=== PATIENT | male | born 1955 | race Caucasian/White ===

== ENCOUNTER 2023-12-18 13:27 | Inpatient (IN) | payer BC, MEDICARE, SELFPAY ==
[2023-12-18] VITALS (21 sets, daily range): BP systolic 141–178; BP diastolic 71–118; PULSE 88–93; BMI 20.8
--- NOTE | 2023-12-18 09:40 | ED.GENMED ---
History of Present Illness
General
Chief Complaint: Abnormal Lab Value
Source: patient
Exam Limitations: none
Time Seen by Provider: 12/18/23 09:39
Nursing documentation reviewed up to this point in time: agreed with
History of Present Illness
History of Present Illness:
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
ulcer (non bleeding) and gastritis via EGD. Had unremarkable colonoscopy.
Today presents stating for past 2 days has been feeling weak, noted soft dark stools, general body aches especially his knees where he has to sit down after walking short distances. Has been taking Ibuprofen 600 mg BID for past 2 weeks.
Denies feeling lightheaded or dizzy
Had out pt blood work 2 days ago, PCP called him today to come here for abnormal blood work.
Past History
Past History
ED Past Medical History: IDDM, Seizures and Other
ED Past Surgical History: None
Social History
Tobacco: Non-smoker
Alcohol: Occasional
Drug: None
Personal:
Living: with family
Employment: Employed
Review of Systems
Review of Systems
Allergies reviewed?: Yes
All Other Systems: ROS reviewed and negative except as documented in HPI and ROS
Constitutional: Reports fatigue; Denies fever or chills
Respiratory: Denies cough or trouble breathing
Cardiac: Denies chest pain
ABD/GI: Reports black stools and anorexia; Denies abdominal pain, nausea, vomiting or diarrhea
: Denies dysuria or difficulty voiding
Musculoskeletal: Reports other (body aches, knees ache past 2 days)
Skin: Reports no symptoms
Neurological: Reports no symptoms
Phy Exam
Physical Exam
Physical Exam:
GENERAL: No acute distress. A&Ox3.
CONSTITUTIONAL: Afebrile.
EYES: PERRL, conjunctivae pale
ENMT: pale, moist mucus membranes, Pharynx nl
RESPIRATORY: Regular respirations, nonlabored, lungs clear. Mild tachypnea
CARDIOVASCULAR: Regular rate and rhythm, no murmurs, no rubs, mild tachycardia
GI: Soft, nontender, normal BS
Rectal: small amount brown stool heme positive
MUSCULOSKELETAL: Moves with ease. Well perfused.
SKIN: Warm, dry, pale
PSYCH: Normal mood and affect. Well kept, interactive and appropriate
NEUROLOGIC: Awake, alert and oriented. No focal neurological deficits
Course
Orders/Labs/Results
Orders:
Orders
12/18/23 09:36
Type+Screen Urgent
Complete Blood Count/With Diff Urgent
Comprehensive Metabolic Panel Urgent
Ferritin Urgent
Comment: ADD
Folate Urgent
Comment: ADD
Iron Urgent
Comment: ADD
PTT Urgent
Prothrombin Time Urgent
Total Iron Binding Urgent
Comment: ADD
Vitamin B12 Urgent
Comment: ADD
12/18/23 10:18
IV Insert/Care/Rem.- Treatment PRN
Pantoprazole 80 mg/100 ml Nss [Protonix] 80 mg in 100 ml IV NOW
Pantoprazole [Protonix IV] 40 mg IV NOW STA
12/18/23 10:19
0.9% Sodium Chloride 1000 ml [Nss] 1,000 ml IV BOLUS
12/18/23 11:03
* Blood Bank Products Urgent
Blood Bank Products: *Packed RBC Leuko(PRBC's)
Quantity: 2
Transfuse Today: Yes
Reason: Anemia
IV Insert/Care/Rem.- Treatment PRN
12/18/23 11:18
NEPHROLOGY CONSULT Urgent
Consulting Provider: Claudio Lawson
Was physician already notified: Yes
Reason for consult: GI bleed, SHAYY
12/18/23 12:00
Flush (0.9% Sodium Chloride) [Flush (Nss)] See Dose Instructions IV PER PROTOCOL
Sterile Water For Inj [Sterile Water For Injection 1000 ml] 1,000 ml Sodium Bicarbonate 150 meq IV Wide Open mls/hr
12/18/23 12:16
GASTROINTESTINAL CONSULT Routine
Consulting Provider: Gilbert Pompa
Was physician already notified: Yes
12/18/23 12:20
Admit/Transfer Patient As Directed
Co-Sign Provider:
Level of Care: Inpatient admission
Assign to:: IMU- Intermediate Care
Physician / Group: [facility]
Diagnosis: GI Bleed, SHAYY, Acidosis
Reason for Hospitalization: IVFs, Blood transfusion
Expected length of stay greater than two midnights?: Yes
ELOS- Estimated Length of Stay in days: 3
I certify the patient meets the requirements for IP care: Yes
PRN Pain Medication Management As Directed
May give lesser potent ordered pain med per pt: Yes
preference::
Protocol:: Medication orders for pain may be administered in a
manner that supports deferring to patient preference
when the pt is:
- Requesting an ordered lesser potent pain medication.
Least to most potent pain medications are defined
as: acetaminophen < NSAID < tramadol < opioids
(morphine, oxycodone, hydromorphone).
- Requesting a lesser dose of the same medication IF
ORDERED.
- Requesting a less intrusive route of administration
if both routes are prescribed by the provider (PO <
IV).
12/18/23 12:21
Code Status As Directed
Resuscitation Status: Full Code
12/18/23 12:44
Renal Only US [US Renal Only W/O Bladder] Routine
Comment:
Reason For Exam: SHAYY
12/18/23 12:45
Sterile Water For Inj [Sterile Water For Injection 1000 ml] 1,000 ml Sodium Bicarbonate 150 meq IV 100 mls/hr
12/18/23 12:48
Add On- LAB Urgent
Tests Added?: iron, ferritin, tibc, vit b12, folate
Lactic Acid Stat
12/18/23 13:04
Urinalysis Routine
Date Specimen was Collected: 12/18/23
Time Specimen was Collected: 13:03
Urine Creatinine Routine
Date Specimen was Collected: 12/18/23
Time Specimen was Collected: 13:03
Urine Microscopic Routine
Date Specimen was Collected: 12/18/23
Time Specimen was Collected: 13:03
Urine Sodium Routine
Date Specimen was Collected: 12/18/23
Time Specimen was Collected: 13:03
12/18/23 16:00
Sodium Bicarbonate 650 mg PO TID
12/18/23 17:30
BMP [Basic Metabolic Panel] Routine
H&H Q8H
12/19/23 01:30
H&H Q8H
12/19/23 09:30
H&H Q8H
Abnormal Lab Results
12/18/23 12/18/23 12/18/23
09:36 12:48 13:04
RBC 1.68 L 10^6/uL
(4.70-6.10)
Hgb 5.0 L* g/dL
(13.0-18.0)
Hct 16.2 L* %
(39.0-52.0)
MCV 96.4 H fL
(80.0-94.0)
MCHC 30.9 L g/dL
(33.0-37.0)
RDW 15.1 H %
(11.5-14.5)
Plt Count 564 H 10^3/uL
(130-400)
Abs Immat Gran (auto) 0.1 H 10^3/uL
(0-0.05)
Absolute Neuts (auto) 7.5 H 10^3/uL
(1.4-6.5)
Absolute Lymphs (auto) 0.7 L 10^3/uL
(1.2-3.4)
Immature Gran % 0.7 H %
(0-0.5)
Neutrophils % 83.5 H %
(42.2-75.2)
Lymphocytes % 7.3 L %
(20.5-51.1)
PT 20.6 H Sec
(11.4-14.6)
APTT 53.9 H Sec
(23.4-35.0)
Potassium 5.3 H mmol/L
(3.5-5.1)
Chloride 110 H mmol/L
(98-107)
Carbon Dioxide < 5 L* mmol/L
(22-30)
BUN 54 H mg/dl
(9-20)
Creatinine 5.7 H* mg/dL
(0.7-1.3)
Glucose 204 H mg/dl
(70-99)
Lactic Acid 0.6 L mmol/L
(0.7-2.0)
Iron 28 L ug/dl
(49-181)
% Saturation 8 L %
(20-50)
AST 14 L U/L
(17-59)
Urine Occult Blood 1+ A
(Negative)
Urine Albumin 2+ A
(Neg - Trace)
Crossmatch IS Only See Detail
12/18/23 09:36
12/18/23 09:36
Vital Signs
Initial and Last Documented VS:
Initial Vital Signs
Temp Pulse Resp BP Pulse Ox
98.7 F 111 20 141/71 99
12/18/23 09:09 12/18/23 09:09 12/18/23 09:09 12/18/23 09:09 12/18/23 09:09
Last Documented Vital Signs
Temp Pulse Resp BP Pulse Ox
98.2 F 87 12 167/118 99
12/18/23 14:24 12/18/23 15:15 12/18/23 15:15 12/18/23 15:00 12/18/23 15:15
MDM/Problems Addressed
Differential Diagnosis Includes:
GI bleed, Iron deficiency anemia, malignancy
MDM/Problems Addressed:
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
ulcer (non bleeding) and gastritis via EGD. Had unremarkable colonoscopy.
Today presents stating for past 2 days has been feeling weak, noted soft dark stools, general body aches especially his knees where he has to sit down after walking short distances. Has been taking Ibuprofen 600 mg BID for past 2 weeks.
Denies feeling lightheaded or dizzy
Had out pt blood work 2 days ago, PCP called him today to come here for abnormal blood work.
11:00 AM:
CBC: Hemoglobin 5.0 and this is consistent with acute blood loss
Small amount of stool in rectum was hematest positive
CMP: BUN/creat 54/5.7, bicarb less than 5
Anion Gap: 21
Diagnosis: GI bleed, metabolic acidosis, acute kidney injury
*Critical Care Note
Total Time (30-74mins, 75-104mins- exclusive of procedures): Not Applicable
ED Attending Note
-
Portions of this chart may have been created with voice recognition software.� Occasional wrong word or��sound alike� substitutions may have occurred due to the inherent limitations of voice recognition software.
Discharge Plan
Departure
Patient Disposition: Admit
Date of Disposition: 12/18/23
Time of Disposition: :19
Presentation/result/management discussed w/ accepting MD/DO: Hospitalist
Condition: Serious
Discharge Problem:
Acute GI bleeding, Metabolic acidosis, Acute kidney injury
Interventions
Interventions:
*Risk Screen - Suicide Last Done: 12/18/23 09:25
*General Assessment Last Done: 12/18/23 09:25
*Neglect/Abuse Screening Last Done: 12/18/23 09:25
*ED COVID-19 Vaccine History Last Done: 12/18/23 15:37
[2023-12-18 10:15] LABS: INR 1.75; PT 20.6 Sec (11.4-14.6)
[2023-12-18 10:16] LABS: APTT 53.9 Sec (23.4-35.0)
[2023-12-18 10:27] LABS: % Basophils 0.8 % (0-2); % Eosinophils 1.1 % (0-6); % Immature Granulocytes 0.7 % (0-0.5); % Lymphocytes 7.3 % (20.5-51.1); % Monocytes 6.6 % (1.7-9.3); % Neutrophils 83.5 % (42.2-75.2); Absolute Basophils 0.1 10^3/uL (0-0.2); Absolute Eosinophils 0.1 10^3/uL (0-0.7); Absolute Immature Granulocytes 0.1 10^3/uL (0-0.05); Absolute Lymphocytes 0.7 10^3/uL (1.2-3.4); Absolute Monocytes 0.6 10^3/uL (0.1-0.6); Absolute Neutrophils 7.5 10^3/uL (1.4-6.5); Hematocrit 16.2 % (39.0-52.0); Mean Corp Hgb Conc. 30.9 g/dL (33.0-37.0); Mean Corpuscular Hgb 29.8 pg (27.0-31.0); Mean Corpuscular Volume 96.4 fL (80.0-94.0); Mean Platelet Volume 8.7 fL (7.4-10.4); Nucleated Red Blood Cells % 0.4 % (-); Platelet Count 564 10^3/uL (130-400); Red Blood Cell Count 1.68 10^6/uL (4.70-6.10); Red Cell Dist. Width 15.1 % (11.5-14.5); White Blood Cell Count 8.9 10^3/uL (4.8-10.8)
[2023-12-18 10:29] LABS: ALT (SGPT) 16 U/L (0-50); AST (SGOT) 14 U/L (17-59); Albumin 3.5 g/dl (3.5-5.0); Alkaline Phosphatase 80 U/L (38-126); Blood Urea Nitrogen 54 mg/dl (9-20); Calcium 8.8 mg/dl (8.4-10.2); Carbon Dioxide < 5 mmol/L (22-30); Chloride 110 mmol/L (98-107); Estimated Creatinine Clearance 11 ml/min; Glucose 204 mg/dl (70-99); Potassium 5.3 mmol/L (3.5-5.1); Sodium 136 mmol/L (135-145); Total Bilirubin 0.2 mg/dl (0.2-1.3); Total Protein 6.3 g/dl (6.3-8.2); eGFR 10.28
[2023-12-18] MEDS: NSS 1000 IV (10:36)
[2023-12-18] MEDS: PROTONIX IV 40 MG IV ×2 (10:36→19:50)
[2023-12-18] MEDS: PROTONIX 100 IV (10:36)
--- NOTE | 2023-12-18 12:20 | HPS.HSE ---
Family Physician
-
Family Physician: Lawrence Anderson
Chief Complaint
-
Abnormal Labs
History of Present Illness
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 During
his hospitalization in 2020 he was found to have a duodenal ulcer and gastritis on EGD, as well as vitamin B12 deficiency. He says that he has not followed up with any medical provider since then, until he saw his PCP 2-3 days ago because he woke up
and his body was diffusely achy. He says his achy pain is everywhere but mostly in his legs and particularly his knees. He also notes that around the same time he had an 'upset stomach,' for which he took some Pepto-Bismol. Later on he had a loose
bowel movement that was dark colored, but he attributed it to the Pepto he took. He takes ibuprofen regularly, roughly 2 capsules a day. He reports drinking alcohol (mixed drinks with vodka) a 'few times' a week and '2 drinks a day max.' He denies
headache, dizziness, dysphagia, cough, SOB, chest pain, palpitations, abdominal pain, nausea, vomiting, or constipation.
Medical History
Past Medical History
Past Medical History: Reports Other
Additional Past Medical History:
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
Essential Hypertension
Diabetes Mellitus, Type II
CKD Stage III
Peptic Ulcer Disease
Past Surgical History: Reports None
Social History
Tobacco: Non-smoker
Alcohol: Other (Patient not forth coming with alcohol consumption. He has prior history of binge drinking. He reports 2 'mixed vodka' drinks most days but unable to quantify how much vodka is in each drink)
Family History
Family History: Not pertinent
Allergies / Home Medications
Allergies reflects when Allergies were last updated in [facility].
Home Medications with original date entered in [facility]
Allergy/Medication List:
Allergies
Allergy/AdvReac Type Severity Reaction Status Date / Time
No Known Allergies Allergy Verified 12/18/23 09:11
Home Medications
metformin 1,000 mg tablet 1,000 mg PO BID Diabetes 10/27/19
nifedipine 30 mg tablet,extended release 30 mg PO DAILY Blood pressure 10/27/19
ibuprofen 200 mg tablet (Advil) 400 mg PO BIDPRN PRN mild pain 12/18/23
levetiracetam 500 mg tablet 1,500 mg PO BID seizure 12/18/23
Review of Systems
-
A 12 point ROS was completed and negative except as noted: Yes
Constitutional: Denies Fever or Chills
Respiratory: Denies Cough or Trouble Breathing
Cardiac: Denies Chest Pain or Palpitations
Abdomen/GI: Reports See HPI
Neurological: Denies Dizzy
Physical Exam
Vital Signs
Vital Signs
Temp Pulse Resp BP Pulse Ox
98.0 F 86 13 165/81 100
12/18/23 11:59 12/18/23 11:59 12/18/23 11:59 12/18/23 11:59 12/18/23 11:41
Physical Exam
General: Comfortable and Conversant
HEENT: Anicteric and Moist mucous membranes
Respiratory: Clear and Non Labored Respirations
Cardiac: S1/S2 and Regular Rhythm
GI: Soft and Non Tender
Rectal: Hem Positive (Per ED Provider)
Musculoskeletal: No Clubbing and No Edema
Skin: Warm and Dry
Neuro: Awake, Alert, Oriented and Nonfocal/grossly intact
Psych: Calm
Laboratory Results
-
12/18/23 09:36
12/18/23 09:36
Laboratory Results
PT 20.6 Sec (11.4-14.6) H 12/18/23 09:36
INR 1.75 12/18/23 09:36
APTT 53.9 Sec (23.4-35.0) H 12/18/23 09:36
Total Bilirubin 0.2 mg/dl (0.2-1.3) 12/18/23 09:36
AST 14 U/L (17-59) L 12/18/23 09:36
ALT 16 U/L (0-50) 12/18/23 09:36
Alkaline Phosphatase 80 U/L (38-126) 12/18/23 09:36
Data Reviewed
-
Lab Data: Labs Reviewed by me
Old Records: Reviewed
Impression/Plan
-
Acute Kidney Injury
Severe Anion Gap Acidosis
Hyperkalemia
-Likely related to metformin and NSAID use
-Check lactic acid level
-Continue IVFs with Bicarb
-Start oral bicarb
-Consult Nephrology
GI Bleed, prior history of Gastritis/PUD
-Consult GI
-Continue Protonix
-Continue
Acute Blood Loss Anemia
-Transfuse 2 units PRBCs
-Monitor Hgb closely
Diabetes Mellitus, Type II
-Hold metformin
-Monitor sugars and continue coverage insulin
Essential Hypertension
-Hold nifedipine
Alcohol Use Disorder
-Continue alcohol withdrawal protocol
DVT proph: SCDs
Code Status: Full Code
--- NOTE | 2023-12-18 12:38 | W.CON.NEPH ---
Consultation
-
Date/Time Consultation Requested: 12/18/23 11a
Date/Time Consultation Performed: 12/18/23 12p
Requesting Provider: Dr. Alfred
Performing Provider: Dr. Lawson
Reason for Consultation: SHAYY
Medical History
-
Chief Complaint: SHAYY
History of Present Illness:
This is a 68-year-old gentleman who is hypertension controlled with a monotherapy regimen, seizure disorder due to a remote brain infection controlled with Keppra therapy, diabetes mellitus type 2 controlled with metformin therapy. He says that he
has been compliant with his medications. About 3 weeks ago he had developed headaches as well as right knee pain. For this he had started taking Motrin 600 mg twice daily. About a week ago he began noticing darker stools though no overt blood.
He then began feeling weaker and has seen his primary who ordered blood work. This had come back abnormal and he was sent to the emergency room. Here he was noted to have a hemoglobin of 5.0, a creatinine of 5.7, significant metabolic acidosis.
We are asked to assist in management of his renal failure. He denies any issues with urine output.
Past Medical History
Hypertension, brain infection, seizure disorder, diabetes mellitus type 2, hyperlipidemia, knee pain
Social History
Tobacco: Non-Smoker
Alcohol: Daily
Family History
Family History: Not Pertinent
Allergies / Home Medications
Allergy/AdvReac Type Severity Reaction Status Date / Time
No Known Allergies Allergy Verified 12/18/23 09:11
�Medication �Instructions �Recorded �Confirmed �Type
metformin 1,000 mg tablet 1,000 mg PO BID Diabetes 10/27/19 12/18/23 History
nifedipine 30 mg tablet,extended 30 mg PO DAILY Blood pressure 10/27/19 12/18/23 History
release
ibuprofen 200 mg tablet (Advil) 400 mg PO BIDPRN PRN mild pain 12/18/23 12/18/23 History
levetiracetam 500 mg tablet 1,500 mg PO BID seizure 12/18/23 12/18/23 History
Review of Systems
-
Headache and knee pain.
All other systems: Negative unless noted
Physical Exam
Vital Signs
Vital Signs
Temp Pulse Resp BP Pulse Ox
98.0 F 86 13 165/81 100
12/18/23 11:59 12/18/23 11:59 12/18/23 11:59 12/18/23 11:59 12/18/23 11:41
Lab Results
WBC 8.9 10^3/uL (4.8-10.8) 12/18/23 09:36
RBC 1.68 10^6/uL (4.70-6.10) L 12/18/23 09:36
Hgb 5.0 g/dL (13.0-18.0) L* 12/18/23 09:36
Hct 16.2 % (39.0-52.0) L* 12/18/23 09:36
Plt Count 564 10^3/uL (130-400) H 12/18/23 09:36
eGFR 10.28 12/18/23 09:36
Albumin 3.5 g/dl (3.5-5.0) 12/18/23 09:36
Laboratory Tests
10/29/19
06:14
Creatinine 1.5 H
Physical Exam
Patient is awake alert oriented and in no distress. Mood and affect were pleasant, insight and judgment were good. Pupils are equal round and reactive to light, extraocular movements are intact, sclera were anicteric. Hearing was normal, ears and
nose are intact. Oropharynx was clear. Neck was supple with trachea midline and no thyromegaly. Heart was regular rate and rhythm without rubs. Lower extremities without edema. Lungs were clear to auscultation bilaterally and with normal
excursion. Abdomen was soft, nontender, with normal active bowel sounds, and no hepatosplenomegaly. Skin was without rash and with normal turgor.
Data Reviewed
-
Ultrasound: Report Reviewed by me (Renal ultrasound on October 28, 2019 shows right kidney 9.8 cm, left kidney 11.2 cm)
Labs: Labs Reviewed by me
Old Records: Reviewed
Assessment/Plan
-
Assessment
SHAYY
Metabolic acidosis
Hyperkalemia
Hypertension
Acute anemia
Likely upper GI bleed
Diabetes mellitus type 2
Seizure disorder
Plan
IV fluids with bicarbonate therapy
Oral bicarbonate therapy
GI evaluation
Discontinue NSAIDs
Holding metformin
Check lactic acid
Check urine studies
Check renal ultrasound
It would appear that the entire chain of events stemmed from initiation of ibuprofen 600 mg twice daily 3 weeks ago.
[2023-12-18 13:14] LABS: Lactic Acid 0.6 mmol/L (0.7-2.0)
--- NOTE | 2023-12-18 13:19 | W.PN.UPDATE ---
Update Note
Progress Note Update
This is an addendum to the H&P written by Karo Reich on 12/18/2023.� Patient seen and examined independently with PA.
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
abnormal lab work 2 days ago.
Labs show hemoglobin of� 5 from 8.2 previously.� Severe anion gap metabolic acidosis and SHAYY on CKD on labs.� Mild hyperkalemia.
Normocytic anemia likely secondary to recurrent bleeding from duodenal ulcer.� N.p.o., 2 units of blood, iron studies, B12 and folate.� Check lactic acid.� Metabolic acidosis secondary to daily NSAID/metformin.� Hold ibuprofen/ metformin.� Monitor
I's and O's, bicarb drip, nephrology consulted.� There was some concern for paraproteinemia during the last admission 4 years ago and outpatient follow-up with hematology for workup was recommended but patient never sought follow up.�
Alcohol withdrawal protocol.�
[2023-12-18 13:26] LABS: Iron 28 ug/dl (49-181)
[2023-12-18 13:36] LABS: Percent Saturation 8 % (20-50); Total Iron Binding Capacity 324 ug/dl (261-462)
[2023-12-18 13:37] LABS: Urine Albumin 2+ (Neg - Trace); Urine Bilirubin Negative (Negative); Urine Character Clear (Clear); Urine Color Yellow; Urine Glucose Negative (Negative); Urine Ketone Negative (Negative); Urine Leukocyte Negative (Negative); Urine Nitrite Negative (Negative); Urine Occult Blood 1+ (Negative); Urine Specific Gravity 1.015 (<1.030); Urine Urobilinogen Negative (Neg - 1+)
[2023-12-18] MEDS: SODIUM BICARBONATE 1150 MEQ IV (13:41)
[2023-12-18 13:59] LABS: Urine Granular Cast 0-2 /LPF (0); Urine Red Blood Cell 0-2 /HPF (0-2); Urine White Cell 0-2 /HPF (0-5)
--- NOTE | 2023-12-18 14:13 | CON.GI ---
Addendum entered and electronically signed by Mikaela Martínez DO 12/18/23 15:43:
The patient was seen and examined by me independently in collaboration with the nurse practitioner.
Past medical history/social history/medications/allergies/family history reviewed.
Lab data and imaging data reviewed.
Nicholas is a 68-year-old male with past medical history of CKD, diabetes, seizure disorder and brain infection, history of peptic ulcer disease who presents with weakness and dark stools found to be iron deficient with a hemoglobin of 5. He reports
having severe joint pain and taking 6 Advil per day daily for the last few months. Additional abnormalities on admitting labs demonstrated metabolic acidosis with SHAYY and hyperkalemia.
Suspect metabolic acidosis and acute on chronic injury in addition to GI bleeding is 2/2 heavy NSAID use. Difficult to interpret BUN given severe SHAYY, however, high suspicion for upper GI source, specifically, peptic/duodenal ulcers. He is
hemodynamically stable.
Recommendations:
-2 large bore peripheral gauge IVs
-transfuse w/ 2 units PRBC, CBC q8hrs
-IVF
-PPI gtt
-NPO past midnight-- tentative plans for EGD tomorrow, pending improvement in acidosis
-avoid all NSAID use
Original Note:
Consultation
-
Date/Time Consultation Requested: 12/18/23 1215
Date/Time Consultation Performed: 12/18/23 1440
Requesting Provider: Karo Reich PA-C
Performing Provider: OPAL Cordova, Sherron Martínez DO
Reason for Consultation: anemia
Medical History
Chief Complaint / HPI
Chief Complaint: fatigue
History of Present Illness:
Pt is a 68yo with hx NIDDM, CKD, brain infection/seizure disorder, PUD with onset of weakness and dark stools a few days ago. He was noted with abnormal labs and on admission hbg 5 with platelets 564 with iron deficient indices. Prior labs in 2019
with B12 deficiency. Pt also noted K 5.3 with CO2 <5, BUN 54, creat 5.7 and INR of 1.75. Last colonoscopy [address] Valdez with fair prep with limited view small polyps, diverticulosis, hemorrhoids. EGD 2019 Dr. Valdez with gastritis non bleeding
duodenal ulcers with no stigmata of bleeding.
In reviewing with patient he has not seen MD since 2019. He admits to 6 Advil per day taking over last month for joint pains. He denies dysphagia, GERD, abdominal pain, constipation or red stools. He admits to occasional diarrhea.
Past Medical History
Past Medical History: HTN, NIDDM, Renal Failure (CKD), Seizures (with hx brain infection) and Other (peptic ulcer disease, B12 deficiency )
Social History
Tobacco: Non-Smoker
Alcohol: Occasional (2-3 drinks 2-3 times per week)
Drug: None
Living: Alone
Employment: Employed
Family History
Family History: Other (no family hx colon Ca or polyps)
Allergies / Home Medications
Allergy/AdvReac Type Severity Reaction Status Date / Time
No Known Allergies Allergy Verified 12/18/23 09:11
�Medication �Instructions �Recorded
metformin 1,000 mg tablet 1,000 mg PO BID Diabetes 10/27/19
nifedipine 30 mg tablet,extended 30 mg PO DAILY Blood pressure 10/27/19
release
ibuprofen 200 mg tablet (Advil) 400 mg PO BIDPRN PRN mild pain 12/18/23
levetiracetam 500 mg tablet 1,500 mg PO BID seizure 12/18/23
Review of Systems
-
History Source: Patient
Constitutional: Reports Fatigue
EENT: Reports No Symptoms
Respiratory: Reports No Symptoms
Abdomen/GI: Reports Abdominal Pain, Diarrhea and Other (recent dark stool)
: Reports No Symptoms
Musculoskeletal: Reports Joint Pain
Skin: Reports No Symptoms
Neurological: Reports Weakness
Endocrine: Reports No Symptoms
Hematologic/Lymphatic: Reports No Symptoms
Vital Signs
Temp Pulse Resp BP Pulse Ox
98.2 F 92 15 170/82 98
12/18/23 14:06 12/18/23 14:06 12/18/23 14:06 12/18/23 14:06 12/18/23 14:06
Physical Exam
Exam
General: Well Developed, Well Nourished and No Apparent Distress
HEENT: Normocephalic and Anicteric
Respiratory: Clear
Cardiac: Regular Rhythm
GI: Soft, Non Tender and Non Distended
Rectal: Other (brown heme + per ER)
Musculoskeletal: No Clubbing and No Cyanosis
Skin: Warm and Dry
Neuro: Awake, Alert and AO x 3
Psych: Calm
Results
WBC 8.9 10^3/uL (4.8-10.8) 12/18/23 09:36
Hgb 5.0 g/dL (13.0-18.0) L* 12/18/23 09:36
Hct 16.2 % (39.0-52.0) L* 12/18/23 09:36
MCV 96.4 fL (80.0-94.0) H 12/18/23 09:36
Plt Count 564 10^3/uL (130-400) H 12/18/23 09:36
Absolute Neuts (auto) 7.5 10^3/uL (1.4-6.5) H 12/18/23 09:36
PT 20.6 Sec (11.4-14.6) H 12/18/23 09:36
INR 1.75 12/18/23 09:36
APTT 53.9 Sec (23.4-35.0) H 12/18/23 09:36
Sodium 136 mmol/L (135-145) 12/18/23 09:36
Potassium 5.3 mmol/L (3.5-5.1) H 12/18/23 09:36
Chloride 110 mmol/L (98-107) H 12/18/23 09:36
Carbon Dioxide < 5 mmol/L (22-30) L* 12/18/23 09:36
BUN 54 mg/dl (9-20) H 12/18/23 09:36
Creatinine 5.7 mg/dL (0.7-1.3) H* 12/18/23 09:36
Calcium 8.8 mg/dl (8.4-10.2) 12/18/23 09:36
Total Bilirubin 0.2 mg/dl (0.2-1.3) 12/18/23 09:36
AST 14 U/L (17-59) L 12/18/23 09:36
ALT 16 U/L (0-50) 12/18/23 09:36
Alkaline Phosphatase 80 U/L (38-126) 12/18/23 09:36
Diagnostic Image Results:
12/18/23 US Renal Only W/O Bladder
Mildly increased renal cortical echogenicity without significant cortical volume loss suggesting mild medical renal disease
8 mm cyst in the upper pole the right kidney
Prior GI Procedures:
EGD [address] Dr. Valdez with gastritis non bleeding duodenal ulcers with no stigmata of bleeding
colonoscopy [address] Valdez with fair prep with limited view small polyps, diverticulosis, hemorrhoids.
Assessment / Plan
-
Pt is a 68yo with hx NIDDM, CKD, brain infection/seizure disorder, PUD with onset of weakness and dark stools a few days ago. He was noted with abnormal labs and on admission hbg 5 with platelets 564 with iron deficient indices. Prior labs in 2020
with B12 deficiency. Pt also noted K 5.3 with CO2 <5, BUN 54, creat 5.7 and INR of 1.75. Last colonoscopy [address] Valdez with fair prep with limited view small polyps, diverticulosis, hemorrhoids. EGD [address] Valdez with gastritis non bleeding
duodenal ulcers with no stigmata of bleeding. He admits to 6 Advil per day taking over last month for joint pains.
-iron deficiency anemia
-SHAYY on CKD
-hyperkalemia
-metabolic acidosis
-coagulopathy
-hx duodenal ulcers in 2020
-daily NSAID use
-ETOH use
-thrombocytosis
other med problems:
-NIDDM
-brain infection with hx seizures
-b12 deficiency
PLAN:
Etiology of anemia with iron deficiency related to ulcer disease with NSAID/ETOH use vs multifactoral with hx CKD, prior low B12
appreciate renal consult
consider EGD in AM if electrolytes improved - NPO for AM
trend hbg and stool record
ppi gtt
agree with transfusion
consider iron in AM
await B12 level
NSAID avoidance
trend labs
will follow
-
-
Thank you for consultation and allowing me to participate in the patient's care. Please call the information technology audit manager GI physician during the after hours with any questions or concerns.
[2023-12-18 15:57] LABS: Urine Sodium 28 mmol/L (30-90)
[2023-12-18 16:57] LABS: Ferritin 29.3 ng/ml (17.9-464.0)
[2023-12-18 17:29] LABS: Folate 7.8 ng/ml (2.76-20); Vitamin B12 433 pg/ml (239-931)
[2023-12-18] MEDS: SODIUM BICARBONATE 650 MG PO ×2 (17:36→22:02)
--- NOTE | 2023-12-18 18:21 | PTCARENOTE ---
Received patient from ED. Two IV sites in place, right and left ACs. Orientated patient to room. Call scott within reach. Continuing to monitor.
[2023-12-18] MEDS: NOVOLOG FLEXPEN-LOW RESISTANCE 1 UNITS SC (18:29)
[2023-12-18 18:37] LABS: Glucose - Point of Care 196 mg/dl (70-99)
[2023-12-18 18:42] LABS: Blood Urea Nitrogen 55 mg/dl (9-20); Calcium 8.8 mg/dl (8.4-10.2); Carbon Dioxide 7 mmol/L (22-30); Chloride 111 mmol/L (98-107); Estimated Creatinine Clearance 13 ml/min; Glucose 184 mg/dl (70-99); Potassium 4.8 mmol/L (3.5-5.1); Sodium 136 mmol/L (135-145); eGFR 12.03
[2023-12-18] MEDS: DESENEX/MITRAZOL/ZEASORB 1 APPLIC TOPICAL (19:49)
[2023-12-18] MEDS: THIAMINE INJECTION 200 MG IV (19:50)
[2023-12-18] MEDS: NSS (PRESERVATIVE FREE) 10 ML IV (19:50)
[2023-12-18] MEDS: KEPPRA 1500 MG PO (19:50)
[2023-12-18 20:20] LABS: Hematocrit 21.5 % (39.0-52.0); Hemoglobin 7.3 g/dL (13.0-18.0)
[2023-12-18 20:22] LABS: Amphetamines Negative (Negative); Barbiturates Negative (Negative); Benzodiazepines Negative (Negative); Buprenorphine Negative (Negative); Cocaine Negative (Negative); Marijuana Negative (Negative); Methadone Negative (Negative); Methamphetamines Negative (Negative); Opiates Negative (Negative); Phencyclidine Negative (Negative); Tricyclic Antidepressants Negative (Negative)
[2023-12-18 22:16] LABS: Glucose - Point of Care 210 mg/dl (70-99)
--- NOTE | 2023-12-18 22:40 | PTCARENOTE ---
PT able to make needs known. MSAS continued. Pt had no complaints at this time. Assessment care and vitals as charted.
[2023-12-19] VITALS (24 sets, daily range): BP systolic 140–184; BP diastolic 59–83; BMI 20.8
[2023-12-19 00:28] LABS: Glucose - Point of Care 187 mg/dl (70-99)
[2023-12-19] MEDS: SODIUM BICARBONATE 1150 MEQ IV ×2 (01:36→12:31)
[2023-12-19 05:21] LABS: INR 1.71; PT 20.2 Sec (11.4-14.6)
[2023-12-19 05:38] LABS: Blood Urea Nitrogen 54 mg/dl (9-20); Calcium 8.6 mg/dl (8.4-10.2); Carbon Dioxide 9 mmol/L (22-30); Chloride 109 mmol/L (98-107); Estimated Creatinine Clearance 14 ml/min; Glucose 147 mg/dl (70-99); Magnesium 1.9 mg/dl (1.6-2.3); Phosphorus 4.8 mg/dl (2.5-4.5); Potassium 4.4 mmol/L (3.5-5.1); Sodium 138 mmol/L (135-145); eGFR 12.96
[2023-12-19 05:51] LABS: Glucose - Point of Care 152 mg/dl (70-99)
[2023-12-19 06:38] LABS: Hematocrit 20.2 % (39.0-52.0); Mean Corp Hgb Conc. 34.7 g/dL (33.0-37.0); Mean Corpuscular Volume 89.4 fL (80.0-94.0); Mean Platelet Volume 8.8 fL (7.4-10.4); Platelet Count 458 10^3/uL (130-400); Red Blood Cell Count 2.26 10^6/uL (4.70-6.10); Red Cell Dist. Width 14.7 % (11.5-14.5); White Blood Cell Count 6.2 10^3/uL (4.8-10.8)
[2023-12-19] MEDS: FOLVITE 1 MG PO (07:43)
[2023-12-19] MEDS: THIAMINE INJECTION 200 MG IV ×2 (07:44→22:07)
[2023-12-19] MEDS: SODIUM BICARBONATE 650 MG PO ×3 (07:44→22:07)
[2023-12-19] MEDS: KEPPRA 1500 MG PO ×2 (07:44→22:07)
[2023-12-19] MEDS: PROTONIX IV 40 MG IV ×2 (07:46→22:07)
--- NOTE | 2023-12-19 08:07 | W.PN.HOSP.TC ---
Addendum entered and electronically signed by Misa Meyer MD 12/19/23 15:45:
I saw and evaluated the patient independently. I reviewed the resident�s note and agree with findings and plan as documented by Dr. Guajardo.
GENERAL: well developed, well nourished, male in no apparent distress
HEENT: NC/AT
HEART: regular rate and rhythm, +S1, +S2
LUNGS : clear to auscultation bilaterally
ABDOM: soft, nontender, nondistended, + bowel sounds
EXT: no cyanosis, clubbing, or edema
NEUROLOGIC: grossly intact
anemia--presumed chronic due to subacute GI bleeding from NSAID use over the last 2 weeks (PUD, DUD, gastritis, etc)--HGB 5 on admission--Status post 2 units packed red blood cells--HGB 7.2--will transfuse 2 more--likely iron deficient--labs
confirm--apprec GI, likely EGD once acidosis stabilizes
SHAYY with metabolic acidosis--creat 5 on admission--combination of prerenal (blood loss), renal (NSAID and metformin)--hold meds--avoid all NSAIDs moving forward--cont IVF with bicarb
Diabetes mellitus, type II--agree with holding metformin--HGB A1C 6.1
Essential hypertension--Currently holding nifedipine
Alcohol use disorder--Continue MSAS protocol
DVT prophylaxis: SCDs
CODE STATUS: Full code
Original Note:
Today's Communication/Plan
-
Continue IV fluids with bicarb
Make patient n.p.o. at midnight
Monitor hemoglobin transfuse if below 7
Assessment / Plan
Assessment / Plan
Assessment: 68-year-old male past medical history of hypertension, and bleeding duodenal ulcer in 2019 presents to the ED with a hemoglobin of 5, checked at his primary care office
Plan:
#Chronic anemia
Hemoglobin on admission 5.0
Status post 2 units packed red blood cells
Suspected secondary to GI losses
GI consult
EGD pending
Iron studies and reticulocyte count added onto labs at admission, will follow-up in a.m.
Transfuse if below 7.0
Patient agreeable to transfusion, type and screen ordered and consent completed
#SHAYY
Patient's creatinine 5.0 on admission
Likely secondary to metformin and NSAID use
Creatinine 4.7 this morning
Continue IV fluids per nephro
Follow with daily BMP
#Metabolic acidosis
CO2 admission 7
Today CO2 9
Nephrology consult
Continue IV fluids with bicarb per nephro
#Diabetes mellitus, type II
A1c 6.1
Currently holding metformin due to SHAYY
Cover with sliding scale
Monitor sugars
#Essential hypertension
Currently holding nifedipine
#Alcohol use disorder
Continue MSAS protocol
DVT prophylaxis: SCDs
Diet: Clear liquid
CODE STATUS: Full code
Anticipated Discharge: 24 - 48 hours
Subjective/Interval History
-
Date of Service: December 19, 2023
Patient was n.p.o. at midnight, GI decided that they would not scope him due to his acidosis and creatinine
Will reevaluate tomorrow, will make patient n.p.o. overnight
Objective Data
-
Labs:
Laboratory Results
12/18/23 12/19/23 12/19/23
20:06 04:44 04:44
WBC Cancelled
Hgb 7.3 L D Cancelled Cancelled
Hct 21.5 L Cancelled
Plt Count
PT
INR
Sodium
Potassium
Chloride
Carbon Dioxide
BUN
Creatinine
Glucose
Calcium
12/19/23 12/19/23 12/19/23
04:44 05:39 12:00
WBC 6.2
Hgb 7.0 L Pending
Hct Cancelled 20.2 L* Pending
Plt Count Cancelled 458 H
PT 20.2 H
INR 1.71
Sodium 138
Potassium 4.4
Chloride 109 H
Carbon Dioxide 9 L*
BUN 54 H
Creatinine 4.7 H*
Glucose 147 H
Calcium 8.6
Vital Signs:
Vital Signs
Temp Pulse Resp BP Pulse Ox
98.1 F 66 16 163/81 100
12/19/23 05:23 12/19/23 04:30 12/19/23 04:30 12/19/23 04:30 12/19/23 04:30
I&O
12/18/23 12/19/23 12/20/23
06:59 06:59 06:59
Intake Total 1880 / 1880
Output Total 390 / 390
Balance 1490 / 1490
Review of Systems
-
History Source: Patient
Constitutional: Reports No Symptoms
Respiratory: Reports No Symptoms
Cardiac: Reports No Symptoms
Abdomen/GI: Reports No Symptoms
Physical Exam
-
General: Well Developed, Well Nourished, No Apparent Distress, Comfortable and Conversant
Respiratory: Clear to Auscultation
Cardiac: Regular Rhythm and S1/S2
GI: Soft, Nontender, Nondistended and Normal Bowel Sounds
Skin: Warm and Dry
Neuro: Awake, Alert, Oriented and AO x 3
Psych: Calm and Intact Judgement/Insight
Data Reviewed
-
Labs: Labs Reviewed by me and Discussed with Physician
[2023-12-19] MEDS: NSS (PRESERVATIVE FREE) 10 ML IV ×2 (08:32→22:07)
[2023-12-19] MEDS: DESENEX/MITRAZOL/ZEASORB 1 APPLIC TOPICAL ×2 (08:33→22:06)
[2023-12-19] MEDS: NOVOLOG FLEXPEN-LOW RESISTANCE SC (08:36)
[2023-12-19 08:47] LABS: Glucose - Point of Care 146 mg/dl (70-99)
[2023-12-19 09:19] LABS: Glycohemoglobin (HgbA1c) 6.1 % (4.0-5.6)
--- NOTE | 2023-12-19 10:29 | W.PN.GI.CBS2 ---
Addendum entered and electronically signed by Mikaela Martínez DO 12/19/23 12:35:
The patient was seen and examined by me independently in collaboration with the nurse practitioner.
Past medical history/social history/medications/allergies/family history reviewed.
Lab data and imaging data reviewed.
Patient seen in follow-up, no episodes of bleeding overnight. Hemoglobin improved, Hgb 5 --> 7.3 --> 7. Cr. improving but still remains severely acidotic.
Suspect metabolic acidosis and acute on chronic injury in addition to GI bleeding is 2/2 heavy NSAID use. He remains hemodynamically stable, without signs of active GI bleeding since admission.
Recommendations:
-2 large bore peripheral gauge IVs
-CBC q12 hrs, transfuse for Hgb <7.0
-IVF
-PPI gtt
-NPO past midnight-- tentative plans for EGD tomorrow, pending improvement in acidosis
-avoid all NSAID use
Original Note:
Today's Communication / Plan
-
Etiology of anemia with iron deficiency related to ulcer disease with NSAID/ETOH use vs multifactorial with hx CKD, prior low B12
some improved labs but remains with acidosis and SHAYY
no signs of aggressive GI bleeding-- hbg 5-->7.3--> 7
hold EGD today consider in AM if acidosis improves
reviewed with renal no restriction ok for clear diet then NPO in Am
PPI IV BID
trend hbg and stool record
total 2 units PRBC's transfused
add IV iron
consider iron in AM
NSAID avoidance
trend labs
Assessment / Plan
-
Pt is a 68yo with hx NIDDM, CKD, brain infection/seizure disorder, PUD with onset of weakness and dark stools a few days ago. He was noted with abnormal labs and on admission hbg 5 with platelets 564 with iron deficient indices. Prior labs in 2019
with B12 deficiency. Pt also noted K 5.3 with CO2 <5, BUN 54, creat 5.7 and INR of 1.75. Last colonoscopy [address] Valdez with fair prep with limited view small polyps, diverticulosis, hemorrhoids. EGD 2019 Dr. Valdez with gastritis non bleeding
duodenal ulcers with no stigmata of bleeding. He admits to 6 Advil per day taking over last month for joint pains.
-iron deficiency anemia
-SHAYY on CKD
-hyperkalemia
-metabolic acidosis
-coagulopathy
-hx duodenal ulcers in 2020
-daily NSAID use
-ETOH use
-thrombocytosis
other med problems:
-NIDDM
-brain infection with hx seizures
-b12 deficiency-- 433 on admission
PLAN:
Etiology of anemia with iron deficiency related to ulcer disease with NSAID/ETOH use vs multifactorial with hx CKD, prior low B12
some improved labs but remains with acidosis and SHAYY
no signs of aggressive GI bleeding-- hbg 5-->7.3--> 7
hold EGD today consider in AM if acidosis improves
reviewed with renal no restriction ok for clear diet then NPO in Am
PPI IV BID
trend hbg and stool record
total 2 units PRBC's transfused
add IV iron
consider iron in AM
NSAID avoidance
trend labs
will follow
Subjective
Subjective
Date of Service: December 19, 2023
NPO advancing to clears, no stools overnight no complaints
Objective
Data Reviewed
Laboratory Data:
Laboratory Results
12/19/23 04:44
Laboratory Results
PT 20.2 Sec (11.4-14.6) H 12/19/23 04:44
INR 1.71 12/19/23 04:44
APTT 53.9 Sec (23.4-35.0) H 12/18/23 09:36
Phosphorus 4.8 mg/dl (2.5-4.5) H 12/19/23 04:44
Magnesium 1.9 mg/dl (1.6-2.3) 12/19/23 04:44
Total Bilirubin 0.2 mg/dl (0.2-1.3) 12/18/23 09:36
AST 14 U/L (17-59) L 12/18/23 09:36
ALT 16 U/L (0-50) 12/18/23 09:36
Alkaline Phosphatase 80 U/L (38-126) 12/18/23 09:36
Vital Signs and I&O:
Vital Signs
Temp Pulse Resp BP Pulse Ox
98.4 F 78 14 145/83 97
12/19/23 08:00 12/19/23 08:00 12/19/23 08:00 12/19/23 08:00 12/19/23 08:00
I&O
12/18/23 12/19/23 12/20/23
06:59 06:59 06:59
Intake Total 1880 / 1880
Output Total 390 / 390
Balance 1490 / 1490
Physical Exam
Physical Exam
HEENT: Anicteric and Moist mucous membranes
Cardiology: Normal Sinus Rhythm
Pulmonary: Clear
GI: Soft, Non Distended and Non Tender
Extremities: No Edema
Neuro: Non Focal
[2023-12-19 10:35] LABS: Reticulocyte Count 1.2 % (0.4-2.8)
[2023-12-19] MEDS: NOVOLOG FLEXPEN-LOW RESISTANCE 1 UNITS SC (11:19)
[2023-12-19 11:23] LABS: Glucose - Point of Care 150 mg/dl (70-99)
--- NOTE | 2023-12-19 11:54 | W.PN.NEPH.PH ---
Today's Communication / Plan
-
IVF
Assessment/Plan
-
Assessment
SHAYY
Metabolic acidosis
Hyperkalemia
Hypertension
Acute anemia
Likely upper GI bleed
Diabetes mellitus type 2
Seizure disorder
Plan
IV fluids with bicarbonate therapy
Oral bicarbonate therapy
EGD deferred
No NSAIDs
Holding metformin still
follow BMP
It would appear that the entire chain of events stemmed from initiation of ibuprofen 600 mg twice daily 3 weeks ago.
-
-
Date of Service: December 19, 2023
CC / HPI / ROS
-
Chief Complaint:
SHAYY
History of Present Illness:
SHAYY/Cr down to 4.7
Hgb better but low 7.0 after transfusion
K normal
metabolic acidosis still 9
Review of Systems:
no CP/SOB
Labs
-
Labs:
WBC 6.2 10^3/uL (4.8-10.8) 12/19/23 05:39
RBC 2.26 10^6/uL (4.70-6.10) L 12/19/23 05:39
Plt Count 458 10^3/uL (130-400) H 12/19/23 05:39
Sodium 138 mmol/L (135-145) 12/19/23 04:44
Potassium 4.4 mmol/L (3.5-5.1) 12/19/23 04:44
Chloride 109 mmol/L (98-107) H 12/19/23 04:44
Carbon Dioxide 9 mmol/L (22-30) L* 12/19/23 04:44
BUN 54 mg/dl (9-20) H 12/19/23 04:44
Creatinine 4.7 mg/dL (0.7-1.3) H* 12/19/23 04:44
eGFR 12.96 12/19/23 04:44
Glucose 147 mg/dl (70-99) H 12/19/23 04:44
Calcium 8.6 mg/dl (8.4-10.2) 12/19/23 04:44
Phosphorus 4.8 mg/dl (2.5-4.5) H 12/19/23 04:44
Albumin 3.5 g/dl (3.5-5.0) 12/18/23 09:36
Physical Exam
-
Vital Signs:
Vital Signs
Temp Pulse Resp BP Pulse Ox
98.1 F 78 14 145/83 97
12/19/23 11:18 12/19/23 08:00 12/19/23 08:00 12/19/23 08:00 12/19/23 08:00
Cardiovascular:: Regular rate and rhythm
Respiratory:: Bilateral: CTA
Lung Excursion:: Normal
Abdomen:: Nontender and Soft
Bowel Sounds:: Normal
Extremity Edema:: None: Bilateral:
[2023-12-19] MEDS: SODIUM BICARBONATE IV (12:27)
[2023-12-19 13:13] LABS: Hematocrit 21.2 % (39.0-52.0); Hemoglobin 7.2 g/dL (13.0-18.0)
[2023-12-19] MEDS: FERRLECIT 110 MG IV (13:33)
--- NOTE | 2023-12-19 15:34 | PTCARENOTE ---
Received patient from shift superintendent caustic cresylate. Patient currently on clear liquid diet and scheduled to be NPO in AM. He 7.2 physician notified and 2 units PRBCs ordered. Patient Ax3. Call be within reach. Continuing to monitor.
--- NOTE | 2023-12-19 16:11 | CM ---
Patient with Dx anemia--presumed chronic due to subacute GI bleeding from NSAID, SHAYY with metabolic acidosis, Alcohol use disorder.
Met with patient who resides alone in a 2 story condo with no EVANGELINA.
The patient has been independent in ADLs and ambulation.
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
The patient has no DME, prior VN or SNF.
PCP - Lawrence Anderson
Pharmacy - [facility], [place]
Offered [facility] for help with Etoh use and he declined saying he doesn't need help with his drinking.
No CM d/c needs identified.
Plan home.
[2023-12-19 16:34] LABS: Glucose - Point of Care 202 mg/dl (70-99)
[2023-12-19] MEDS: NOVOLOG FLEXPEN-LOW RESISTANCE 2 UNITS SC (17:15)
[2023-12-19] MEDS: VITAMIN B-12 1000 MCG PO (18:23)
[2023-12-19] MEDS: APRESOLINE 5 MG IV (18:24)
[2023-12-19] MEDS: TYLENOL 650 MG PO (18:42)
--- NOTE | 2023-12-19 21:06 | PTCARENOTE ---
Addendum entered by Jennifer Zuniga RN 12/20/23 02:23:
Pt needing hydrazide during the night. Pt HR remaining bradycardic, GARBAGE COLLECTION SUPERVISOR made aware.
Original Note:
Pt 2nd Unit of ordered PRBC infusing Pt tolerating well. Pt HR Bradycardia in the 50's. MSAS continued. Pt has no complaints as of now. Call scott within reach.
[2023-12-19 21:39] LABS: Glucose - Point of Care 194 mg/dl (70-99)
[2023-12-20] VITALS (17 sets, daily range): BP systolic 15–184; BP diastolic 66–93
[2023-12-20] MEDS: APRESOLINE 5 MG IV (00:25)
[2023-12-20] MEDS: SODIUM BICARBONATE 1150 MEQ IV ×2 (01:46→14:53)
[2023-12-20 04:53] LABS: INR 1.98; PT 22.7 Sec (11.4-14.6)
[2023-12-20 05:12] LABS: Blood Urea Nitrogen 47 mg/dl (9-20); Calcium 8.2 mg/dl (8.4-10.2); Carbon Dioxide 19 mmol/L (22-30); Chloride 104 mmol/L (98-107); Estimated Creatinine Clearance 16 ml/min; Glucose 156 mg/dl (70-99); Magnesium 1.6 mg/dl (1.6-2.3); Potassium 3.5 mmol/L (3.5-5.1); Sodium 140 mmol/L (135-145); eGFR 16.21
[2023-12-20 05:26] LABS: Hemoglobin 10.1 g/dL (13.0-18.0); Mean Corp Hgb Conc. 34.8 g/dL (33.0-37.0); Mean Corpuscular Hgb 30.3 pg (27.0-31.0); Mean Corpuscular Volume 87.1 fL (80.0-94.0); Mean Platelet Volume 8.7 fL (7.4-10.4); Platelet Count 455 10^3/uL (130-400); Red Blood Cell Count 3.33 10^6/uL (4.70-6.10); Red Cell Dist. Width 14.4 % (11.5-14.5); White Blood Cell Count 6.8 10^3/uL (4.8-10.8)
[2023-12-20] MEDS: NOVOLOG FLEXPEN-LOW RESISTANCE 1 UNITS SC (08:57)
[2023-12-20 09:02] LABS: Glucose - Point of Care 161 mg/dl (70-99)
[2023-12-20] MEDS: DESENEX/MITRAZOL/ZEASORB 1 APPLIC TOPICAL ×2 (09:03→20:14)
[2023-12-20] MEDS: VITAMIN B-12 1000 MCG PO (09:04)
[2023-12-20] MEDS: FOLVITE 1 MG PO (09:04)
[2023-12-20] MEDS: THIAMINE INJECTION 200 MG IV ×2 (09:05→20:02)
[2023-12-20] MEDS: SODIUM BICARBONATE 650 MG PO ×3 (09:05→22:12)
[2023-12-20] MEDS: KEPPRA 1500 MG PO ×2 (09:05→20:02)
[2023-12-20] MEDS: PROTONIX IV 40 MG IV (09:05)
[2023-12-20] MEDS: NSS (PRESERVATIVE FREE) 10 ML IV ×2 (09:10→20:03)
[2023-12-20] MEDS: PROCARDIA XL (EXTENDED RELEASE) 30 MG PO (09:14)
[2023-12-20] MEDS: KCL 40 MEQ PO (09:33)
--- NOTE | 2023-12-20 10:40 | PTCARENOTE ---
Report given to Sandra NG for transfer to room 2114. Belongings transported to new room. Patient is in GI lab at this time. Patient educated about plan of care. Has been NPO except sips of water with oral medications, this information was endorsed
to GI lab.
[2023-12-20 11:16] LABS: Glucose - Point of Care 149 mg/dl (70-99)
[2023-12-20] MEDS: NOVOLOG FLEXPEN-LOW RESISTANCE SC (11:20)
--- NOTE | 2023-12-20 12:40 | W.PN.HOSP.TC ---
Addendum entered and electronically signed by Misa Meyer MD 12/20/23 15:00:
I saw and evaluated the patient independently. I reviewed the resident�s note and agree with findings and plan as documented by Dr. Guajardo.
GENERAL: well developed, well nourished, male in no apparent distress
HEENT: NC/AT
HEART: regular rate and rhythm, +S1, +S2
LUNGS : clear to auscultation bilaterally
ABDOM: soft, nontender, nondistended, + bowel sounds
EXT: no cyanosis, clubbing, or edema
NEUROLOGIC: grossly intact
anemia--presumed chronic due to subacute GI bleeding from NSAID use over the last 2 weeks--HGB 5 on admission--Status post 4 units packed red blood cells in total with improvement to 10.1---likely iron deficient--labs confirm--apprec GI--EGD with 4
nonbleeding clean based ulcers likely from NSAID use--PPI BID x 8 weeks, then daily x 4 weeks, follow up with GI for repeat EGD
SHAYY with metabolic acidosis--creat 5 on admission--combination of prerenal (blood loss), renal (NSAID and metformin)--hold meds--avoid all NSAIDs moving forward--cont IVF with bicarb
Diabetes mellitus, type II--agree with holding metformin--HGB A1C 6.1
Essential hypertension--Currently holding nifedipine
Alcohol use disorder--Continue MSAS protocol
DVT prophylaxis: SCDs
CODE STATUS: Full code
anticipate d/c Saturday if remains stable
Original Note:
Today's Communication/Plan
-
Downgrade from IMU to telemetry
Initiate diet
Monitor hemoglobin
Assessment / Plan
Assessment / Plan
Assessment: 68-year-old male past medical history of hypertension, and bleeding duodenal ulcer in 2019 presents to the ED with a hemoglobin of 5, checked at his primary care office
Plan:
#Chronic anemia
Suspected secondary to GI losses
Hemoglobin on admission 5.0
Status post 4 units packed red blood cells
Hemoglobin today 10.1
GI consult
EGD resulted with 2 nonbleeding duodenal ulcers, clean-based. Biopsies were taken
Recommended 8 weeks of twice daily Protonix, will start patient on PPI
Iron studies and reticulocyte count demonstrated that patient is iron deficient
Was started on IV iron
Transfuse if below 7.0
Patient agreeable to transfusion, type and screen ordered and consent completed
#SHAYY
Improving
Patient's creatinine 5.0 on admission
Likely secondary to metformin and NSAID use
Creatinine 3.9 this morning
Continue IV fluids per nephro
Follow with daily BMP
#Metabolic acidosis
Improving
CO2 admission 7
Today CO2 19
Nephrology consult
Continue IV fluids with bicarb per nephro
#Diabetes mellitus, type II
A1c 6.1
Currently holding metformin due to SHAYY
Cover with sliding scale
Monitor sugars
#Essential hypertension
Restarted nifedipine 30 mg p.o. daily
#Alcohol use disorder
Continue MSAS protocol
DVT prophylaxis: SCDs
Diet: Diabetic, 2 g potassium
CODE STATUS: Full code
Anticipated Discharge: 24 - 48 hours
Subjective/Interval History
-
Date of Service: December 20, 2023
Patient reports headaches well-controlled on Tylenol
Patient downgraded to telemetry from IMU
Objective Data
-
Labs:
Laboratory Results
12/20/23
04:26
WBC 6.8
Hgb 10.1 L D
Hct 29.0 L
Plt Count 455 H
PT 22.7 H
INR 1.98
Sodium 140
Potassium 3.5
Chloride 104
Carbon Dioxide 19 L
BUN 47 H
Creatinine 3.9 H
Glucose 156 H
Calcium 8.2 L
Vital Signs:
Vital Signs
Temp Pulse Resp BP Pulse Ox
98.1 F 70 16 136/83 95
12/20/23 11:25 12/20/23 11:26 12/20/23 11:26 12/20/23 11:26 12/20/23 11:26
I&O
12/19/23 12/20/23 12/21/23
06:59 06:59 06:59
Intake Total 1880 / 1880 3860 / 3860
Output Total 390 / 390 1425 / 1425 375 / 375
Balance 1490 / 1490 2435 / 2435 -375 / -375
Review of Systems
-
History Source: Patient
Constitutional: Reports No Symptoms
Respiratory: Reports No Symptoms
Cardiac: Reports No Symptoms
Abdomen/GI: Reports No Symptoms
Physical Exam
-
General: Well Developed, Well Nourished, No Apparent Distress, Comfortable and Conversant
Respiratory: Clear to Auscultation
Cardiac: Regular Rhythm and S1/S2
GI: Soft, Nontender, Nondistended and Normal Bowel Sounds
Musculoskeletal: No Edema
Skin: Warm and Dry
Neuro: Awake, Alert, Oriented and AO x 3
Psych: Calm and Intact Judgement/Insight
Data Reviewed
-
Labs: Labs Reviewed by me and Discussed with Physician
--- NOTE | 2023-12-20 13:51 | PTCARENOTE ---
Patient was transferred to [address] [place] [address] following his upper endoscopy today.The patient is alert and oriented and denies any pain.Vital signs are stable.The patient is in his bed with the call scott in reach.
--- NOTE | 2023-12-20 13:59 | W.PN.NEPH.PH ---
Today's Communication / Plan
-
off IVF
Assessment/Plan
-
Assessment
SHAYY
Metabolic acidosis
Hyperkalemia
Hypertension
Acute anemia
Likely upper GI bleed
Diabetes mellitus type 2
Seizure disorder
Plan
SHAYY-suspected NSAIDs induced+prerenal
cr improving and non oliguric
met acidosis is better on bicarb IVF and po bicarb
ok to hold IVF at this time since diet restarted
s/p EGD -D ulcer non bleding
hb improving with PRBC, on IV Fe course
No NSAIDs
Holding metformin still
check U pCR
not sure if he has underlying CKD, known sub nephrotic proteinuria
follow BMP
nephro f/u
-
-
Date of Service: December 20, 2023
CC / HPI / ROS
-
Chief Complaint:
SHAYY
History of Present Illness:
SHAYY/Cr down to 3.9
Hgb better 10 after transfusion
K normal
metabolic acidosis improving at 19
Review of Systems:
no CP/SOB
no other complaints
Labs
-
Labs:
WBC 6.8 10^3/uL (4.8-10.8) 12/20/23 04:26
RBC 3.33 10^6/uL (4.70-6.10) L 12/20/23 04:26
Hgb 10.1 g/dL (13.0-18.0) L D 12/20/23 04:26
Hct 29.0 % (39.0-52.0) L 12/20/23 04:26
Plt Count 455 10^3/uL (130-400) H 12/20/23 04:26
Sodium 140 mmol/L (135-145) 12/20/23 04:26
Potassium 3.5 mmol/L (3.5-5.1) 12/20/23 04:26
Chloride 104 mmol/L (98-107) 12/20/23 04:26
Carbon Dioxide 19 mmol/L (22-30) L 12/20/23 04:26
BUN 47 mg/dl (9-20) H 12/20/23 04:26
Creatinine 3.9 mg/dL (0.7-1.3) H 12/20/23 04:26
eGFR 16.21 12/20/23 04:26
Glucose 156 mg/dl (70-99) H 12/20/23 04:26
Calcium 8.2 mg/dl (8.4-10.2) L 12/20/23 04:26
Phosphorus 4.8 mg/dl (2.5-4.5) H 12/19/23 04:44
Albumin 3.5 g/dl (3.5-5.0) 12/18/23 09:36
Physical Exam
-
Vital Signs:
Vital Signs
Temp Pulse Resp BP Pulse Ox
98.1 F 70 16 136/83 95
12/20/23 11:25 12/20/23 11:26 12/20/23 11:26 12/20/23 11:26 12/20/23 11:26
Cardiovascular:: Regular rate and rhythm
Respiratory:: Bilateral: CTA
Lung Excursion:: Normal
Abdomen:: Nontender and Soft
Extremity Edema:: None: Bilateral:
Whitehead Catheter: No
[2023-12-20] MEDS: FERRLECIT 110 MG IV (15:51)
[2023-12-20 17:12] LABS: Glucose - Point of Care 272 mg/dl (70-99)
[2023-12-20] MEDS: NOVOLOG FLEXPEN-LOW RESISTANCE 3 UNITS SC (17:32)
[2023-12-20] MEDS: PROTONIX 40 MG PO (20:02)
[2023-12-20] MEDS: MELATONIN 5 MG PO (22:12)
[2023-12-20 22:41] LABS: Glucose - Point of Care 221 mg/dl (70-99)
[2023-12-21] VITALS (7 sets, daily range): BP systolic 142–179; BP diastolic 53–90
[2023-12-21 06:36] LABS: Hematocrit 26.3 % (39.0-52.0); Hemoglobin 9.2 g/dL (13.0-18.0); Mean Corpuscular Hgb 29.6 pg (27.0-31.0); Mean Corpuscular Volume 84.6 fL (80.0-94.0); Mean Platelet Volume 8.6 fL (7.4-10.4); Platelet Count 401 10^3/uL (130-400); Red Blood Cell Count 3.11 10^6/uL (4.70-6.10); Red Cell Dist. Width 15.1 % (11.5-14.5); White Blood Cell Count 6.5 10^3/uL (4.8-10.8)
[2023-12-21 06:48] LABS: APTT 57.4 Sec (23.4-35.0); INR 1.73; PT 20.1 Sec (11.4-14.6)
[2023-12-21 07:02] LABS: Blood Urea Nitrogen 41 mg/dl (9-20); Calcium 7.8 mg/dl (8.4-10.2); Carbon Dioxide 27 mmol/L (22-30); Chloride 99 mmol/L (98-107); Estimated Creatinine Clearance 18 ml/min; Glucose 170 mg/dl (70-99); Potassium 3.4 mmol/L (3.5-5.1); Sodium 138 mmol/L (135-145); eGFR 18.46
[2023-12-21] MEDS: SODIUM BICARBONATE 650 MG PO (07:52)
[2023-12-21] MEDS: PROCARDIA XL (EXTENDED RELEASE) 30 MG PO ×2 (07:52→20:25)
[2023-12-21] MEDS: FOLVITE 1 MG PO (07:52)
[2023-12-21] MEDS: VITAMIN B-12 1000 MCG PO (07:52)
[2023-12-21] MEDS: PROTONIX 40 MG PO ×2 (07:52→20:23)
[2023-12-21] MEDS: KEPPRA 1500 MG PO ×2 (07:52→20:23)
[2023-12-21] MEDS: THIAMINE INJECTION 200 MG IV (07:53)
[2023-12-21] MEDS: NSS (PRESERVATIVE FREE) IV ×2 (07:53→20:58)
[2023-12-21] MEDS: DESENEX/MITRAZOL/ZEASORB 1 APPLIC TOPICAL ×2 (08:03→20:22)
[2023-12-21 08:35] LABS: Glucose - Point of Care 174 mg/dl (70-99)
[2023-12-21] MEDS: NOVOLOG FLEXPEN-LOW RESISTANCE 1 UNITS SC ×2 (09:01→13:27)
--- NOTE | 2023-12-21 12:06 | W.PN.NEPH.PH ---
Today's Communication / Plan
-
follow labs
decrease po bicarb dose
increase nifedipine
Assessment/Plan
-
Assessment
SHAYY
Metabolic acidosis
Hyperkalemia
Hypertension
Acute anemia
Likely upper GI bleed
Diabetes mellitus type 2
Seizure disorder
Plan
SHAYY-suspected NSAIDs induced+prerenal
cr improving and non oliguric
met acidosis is better-decrease po bicarb dose
replace k
12/19 s/p EGD -D ulcer non bleding
hb decreasing, on IV Fe course
elevate legs
BP are high, increase nifedipine to BID
No NSAIDs
Holding metformin still
check U pCR
not sure if he has underlying CKD, known sub nephrotic proteinuria
follow BMP
nephro f/u
-
-
Date of Service: December 21, 2023
CC / HPI / ROS
-
Chief Complaint:
SHAYY
History of Present Illness:
SHAYY/Cr down to 3.5
Hgb better 10 after transfusion but decreasing to 9.2
K low 3.4
metabolic acidosis improving at 27
Review of Systems:
no CP/SOB
no other complaints
Labs
-
Labs:
WBC 6.5 10^3/uL (4.8-10.8) 12/21/23 06:21
RBC 3.11 10^6/uL (4.70-6.10) L 12/21/23 06:21
Hgb 9.2 g/dL (13.0-18.0) L 12/21/23 06:21
Hct 26.3 % (39.0-52.0) L 12/21/23 06:21
Plt Count 401 10^3/uL (130-400) H 12/21/23 06:21
Sodium 138 mmol/L (135-145) 12/21/23 06:21
Potassium 3.4 mmol/L (3.5-5.1) L 12/21/23 06:21
Chloride 99 mmol/L (98-107) 12/21/23 06:21
Carbon Dioxide 27 mmol/L (22-30) 12/21/23 06:21
BUN 41 mg/dl (9-20) H 12/21/23 06:21
Creatinine 3.5 mg/dL (0.7-1.3) H 12/21/23 06:21
eGFR 18.46 12/21/23 06:21
Glucose 170 mg/dl (70-99) H 12/21/23 06:21
Calcium 7.8 mg/dl (8.4-10.2) L 12/21/23 06:21
Phosphorus 4.8 mg/dl (2.5-4.5) H 12/19/23 04:44
Albumin 3.5 g/dl (3.5-5.0) 12/18/23 09:36
Physical Exam
-
Vital Signs:
Vital Signs
Temp Pulse Resp BP Pulse Ox
98.7 F 66 18 176/53 96
12/21/23 11:00 12/21/23 11:00 12/21/23 11:00 12/21/23 11:00 12/21/23 11:00
Cardiovascular:: Regular rate and rhythm
Respiratory:: Bilateral: CTA
Lung Excursion:: Normal
Abdomen:: Nontender and Soft
Extremity Edema:: None: Bilateral:
Whitehead Catheter: No
Other Findings::
trace rt LE edema, was wearing knee sock for long time
[2023-12-21] MEDS: KCL 40 MEQ PO (12:43)
[2023-12-21] MEDS: FERRLECIT 110 MG IV (13:20)
[2023-12-21 13:24] LABS: Glucose - Point of Care 197 mg/dl (70-99)
--- NOTE | 2023-12-21 14:48 | W.PN.HOSP.TC ---
Today's Communication/Plan
-
Repeat labs in a.m.
DC planning
Assessment / Plan
Assessment / Plan
Assessment: 68-year-old male past medical history of hypertension, and bleeding duodenal ulcer in 2019 presents to the ED with a hemoglobin of 5, checked at his primary care office
Plan:
#Acute on Chronic anemia
Suspected secondary to acute GI losses
Hemoglobin on admission 5.0
Status post 4 units packed red blood cells
Hemoglobin improved and stable
GI consulted
EGD resulted with 2 nonbleeding duodenal ulcers, clean-based. Biopsies were taken
Recommended 8 weeks of twice daily Protonix, patient on PPI
Iron studies and reticulocyte count demonstrated that patient is iron deficient
on IV iron
Transfuse if below 7.0
#SHAYY
Improving
Patient's creatinine 5.0 on admission
Likely secondary to metformin and NSAID use
Creatinine 3.5 this morning
Follow with daily BMP
#Metabolic acidosis
Improving
CO2 admission 7
Nephrology consult
#Diabetes mellitus, type II
A1c 6.1
Currently holding metformin due to SHAYY
Cover with sliding scale
Monitor sugars
#Essential hypertension
Increased dose of nifedipine by renal
#Alcohol use disorder
Continue MSAS protocol
DVT prophylaxis: SCDs
Diet: Diabetic, 2 g potassium
CODE STATUS: Full code
Anticipated Discharge: Within 24 hours
Subjective/Interval History
-
Date of Service: December 21, 2023
Feeling improved. Voices no specific complaints.
Denies dizziness.
No chest pain or shortness of breath.
No abdominal pain. Tolerating diet.
Objective Data
-
Labs:
Laboratory Results
12/21/23
06:21
WBC 6.5
Hgb 9.2 L
Hct 26.3 L
Plt Count 401 H
PT 20.1 H
INR 1.73
APTT 57.4 H
Sodium 138
Potassium 3.4 L
Chloride 99
Carbon Dioxide 27
BUN 41 H
Creatinine 3.5 H
Glucose 170 H
Calcium 7.8 L
Vital Signs:
Vital Signs
Temp Pulse Resp BP Pulse Ox
98.7 F 66 18 142/84 96
12/21/23 11:00 12/21/23 11:00 12/21/23 11:00 12/21/23 12:08 12/21/23 11:00
I&O
12/20/23 12/21/23 12/22/23
06:59 06:59 06:59
Intake Total 3860 / 3860 1630 / 1630
Output Total 1425 / 1425 1625 / 1625
Balance 2435 / 2435 5 / 5
Review of Systems
-
Neuro: Denies Dizzy
Physical Exam
-
General: Comfortable
Respiratory: Non Labored Respirations; Negative Accessory Resp Muscle Use
Cardiac: Regular Rhythm and S1/S2
GI: Soft and Nontender
Neuro: AO x 3
Data Reviewed
-
Labs: Labs Reviewed by me
[2023-12-21 16:50] LABS: Glucose - Point of Care 254 mg/dl (70-99)
[2023-12-21] MEDS: NOVOLOG FLEXPEN-LOW RESISTANCE 3 UNITS SC (17:56)
[2023-12-21] MEDS: VITAMIN B1 100 MG PO (20:23)
[2023-12-21] MEDS: MELATONIN 5 MG PO (21:01)
[2023-12-21 21:42] LABS: Glucose - Point of Care 250 mg/dl (70-99)
[2023-12-22 00:11] VITALS: BP 153/86
[2023-12-22 03:48] VITALS: BP 141/86
[2023-12-22 07:23] VITALS: BP 141/88
[2023-12-22 07:31] LABS: Glucose - Point of Care 174 mg/dl (70-99)
[2023-12-22] MEDS: NOVOLOG FLEXPEN-LOW RESISTANCE 1 UNITS SC (07:33)
[2023-12-22 07:34] LABS: Hematocrit 28.3 % (39.0-52.0); Hemoglobin 9.7 g/dL (13.0-18.0); Mean Corp Hgb Conc. 34.3 g/dL (33.0-37.0); Mean Corpuscular Hgb 30.3 pg (27.0-31.0); Mean Corpuscular Volume 88.4 fL (80.0-94.0); Mean Platelet Volume 8.9 fL (7.4-10.4); Platelet Count 415 10^3/uL (130-400); Red Cell Dist. Width 14.9 % (11.5-14.5); White Blood Cell Count 6.8 10^3/uL (4.8-10.8)
[2023-12-22] MEDS: VITAMIN B1 100 MG PO (07:36)
[2023-12-22] MEDS: DESENEX/MITRAZOL/ZEASORB 1 APPLIC TOPICAL (07:37)
[2023-12-22] MEDS: VITAMIN B-12 1000 MCG PO (07:37)
[2023-12-22] MEDS: KEPPRA 1500 MG PO (07:37)
[2023-12-22] MEDS: PROTONIX 40 MG PO (07:37)
[2023-12-22] MEDS: FOLVITE 1 MG PO (07:37)
[2023-12-22] MEDS: PROCARDIA XL (EXTENDED RELEASE) 30 MG PO (07:37)
[2023-12-22] MEDS: SODIUM BICARBONATE 650 MG PO (07:37)
[2023-12-22 07:58] LABS: Blood Urea Nitrogen 38 mg/dl (9-20); Calcium 8.2 mg/dl (8.4-10.2); Carbon Dioxide 25 mmol/L (22-30); Chloride 99 mmol/L (98-107); Estimated Creatinine Clearance 21 ml/min; Glucose 164 mg/dl (70-99); Potassium 3.6 mmol/L (3.5-5.1); Sodium 138 mmol/L (135-145); eGFR 21.35
--- NOTE | 2023-12-22 11:28 | W.PN.HOSP.TC ---
Today's Communication/Plan
-
dc
Assessment / Plan
Assessment / Plan
Assessment: 68-year-old male past medical history of hypertension, and bleeding duodenal ulcer in 2019 presents to the ED with a hemoglobin of 5, checked at his primary care office
Plan:
#Acute on Chronic anemia
Suspected secondary to acute GI losses
Hemoglobin on admission 5.0
Status post 4 units packed red blood cells
Hemoglobin improved and remains stable
GI consulted
EGD resulted with 2 nonbleeding duodenal ulcers, clean-based. Biopsies were taken
Recommended 8 weeks of twice daily Protonix, patient on PPI
Iron studies and reticulocyte count demonstrated that patient is iron deficient s/p IV iron
Follow with GI as OP for repeat EGD in8 weeks
#SHAYY
Continues to improve. Creatinine 3.1 today
Patient's creatinine 5.0 on admission
Likely secondary to metformin and NSAID use
Follow with daily BMP
#Metabolic acidosis
Resolved
CO2 admission 7
Nephrology consult
#Diabetes mellitus, type II
A1c 6.1
Currently holding metformin due to SHAYY
Discussed about switching to low-dose glipizide which is agreeable. He has supplies to check blood sugars at home and asked him to check in the morning before breakfast and aim to keep it less than 140.
Essential hypertension
Improved
Increased dose of nifedipine by renal
#Alcohol use disorder
Continue MSAS protocol
DVT prophylaxis: SCDs
Diet: Diabetic, 2 g potassium
CODE STATUS: Full code
Discussed with nephrology today-okay from their standpoint for discharge but needs a BMP in a week and follow-up with them after the BMP.
Total time of discharge 35 minutes
Anticipated Discharge: Today
Subjective/Interval History
-
Date of Service: December 22, 2023
Voicing no specific complaints. Tolerating diet. Urinating fine without retention symptoms.
Objective Data
-
Labs:
Laboratory Results
12/22/23
06:06
WBC 6.8
Hgb 9.7 L
Hct 28.3 L
Plt Count 415 H
Sodium 138
Potassium 3.6
Chloride 99
Carbon Dioxide 25
BUN 38 H
Creatinine 3.1 H
Glucose 164 H
Calcium 8.2 L
Vital Signs:
Vital Signs
Temp Pulse Resp BP Pulse Ox
98.1 F 89 16 141/88 96
12/22/23 07:23 12/22/23 07:37 12/22/23 07:23 12/22/23 07:37 12/22/23 07:30
I&O
12/21/23 12/22/23 12/23/23
06:59 06:59 06:59
Intake Total 1630 / 1630 1310 / 1310 240 / 240
Output Total 1625 / 1625 1625 / 1625 400 / 400
Balance 5 / 5 -315 / -315 -160 / -160
Review of Systems
-
Constitutional: Denies Fever
Respiratory: Denies Trouble Breathing
Cardiac: Denies Chest Pain
Abdomen/GI: Denies Abdominal Pain, Nausea or Vomiting
Neuro: Denies Dizzy
Physical Exam
-
General: Comfortable
Respiratory: Non Labored Respirations; Negative Accessory Resp Muscle Use
Cardiac: Regular Rhythm and S1/S2; Negative Tachycardic
GI: Soft and Nontender
Neuro: AO x 3
Psych: Calm
Data Reviewed
-
Labs: Labs Reviewed by me
--- NOTE | 2023-12-22 11:41 | W.DS.TRANS ---
DC Summary - [facility]
-
Discharge Instructions:
Discharge Diagnosis/Procedures Acute on Chronic anemia sec to GI bleed from
gastric ulcers; NSAID use, acute kidney injury,
metabolic acidosis, diabetes mellitus type 2,
essential hypertension, alcohol use disorder
Diet Diabetic, Carb Controlled
Activity As tolerated,No restrictions
Driving Restrictions As prior to admission
Bathing Restrictions None
Blood Work BMP blood work in a week -arrange through your
PCP
Instructions:
Stand-Alone Forms:
Changes to Home Medications: Yes
Discharge Medications:
DC Medications w/original date entered in [facility]
levetiracetam 500 mg tablet 1,500 mg PO BID seizure 12/18/23
cyanocobalamin (vitamin B-12) 1,000 mcg tablet 1,000 mcg PO DAILY #30 tabs 12/22/23
folic acid 1 mg tablet 1 mg PO DAILY #30 tabs 12/22/23
glipizide 2.5 mg tablet 2.5 mg PO DAILY #30 tabs 12/22/23
nifedipine 30 mg tablet,extended release 30 mg PO BID Blood pressure #60 tabs 12/22/23
pantoprazole 40 mg tablet,delayed release 40 mg PO BID #60 tabs 12/22/23
sodium bicarbonate 650 mg tablet 650 mg PO DAILY #10 tabs 12/22/23
thiamine HCl (vitamin B1) 100 mg tablet 100 mg PO BID #60 tabs 12/22/23
Home Medication Changes
New medication-vitamin B12, folic acid, glipizide, Protonix, sodium bicarbonate, thiamine
Discontinue medication-metformin
Change in medication-increase dose of nifedipine from once to twice a day
Pending Results: Yes (Gastric biopsy report)
[2023-12-22 11:45] VITALS: BP 140/99
--- NOTE | 2023-12-22 12:27 | CM ---
Pt for discharge today
Met with pt - has transport home
Discussed IMM
Plan - home no needs
--- NOTE | 2023-12-22 12:38 | W.PN.NEPH.PH ---
Today's Communication / Plan
-
ok for d/c
Assessment/Plan
-
Assessment
SHAYY
Metabolic acidosis
Hyperkalemia
Hypertension
Acute anemia
Likely upper GI bleed
Diabetes mellitus type 2
Seizure disorder
Plan
SHAYY-suspected NSAIDs induced+prerenal
cr improving and non oliguric
met acidosis stable on po bicarb dose
12/19 s/p EGD -D ulcer non bleding
hb stable on IV Fe course
BP stable on meds
No NSAIDs
Holding metformin still
check U pCR out pt
not sure if he has underlying CKD, known sub nephrotic proteinuria
follow BMP in 1week
nephro f/u
d/w pt
-
-
Date of Service: December 22, 2023
CC / HPI / ROS
-
Chief Complaint:
SHAYY
History of Present Illness:
SHAYY/Cr down to 3.1
Hgb better 10 after transfusion but decreasing to 9.2
K better at 3.6
metabolic acidosis stable at 25
Review of Systems:
no CP/SOB
no other complaints
Labs
-
Labs:
WBC 6.8 10^3/uL (4.8-10.8) 12/22/23 06:06
RBC 3.20 10^6/uL (4.70-6.10) L 12/22/23 06:06
Hgb 9.7 g/dL (13.0-18.0) L 12/22/23 06:06
Hct 28.3 % (39.0-52.0) L 12/22/23 06:06
Plt Count 415 10^3/uL (130-400) H 12/22/23 06:06
Sodium 138 mmol/L (135-145) 12/22/23 06:06
Potassium 3.6 mmol/L (3.5-5.1) 12/22/23 06:06
Chloride 99 mmol/L (98-107) 12/22/23 06:06
Carbon Dioxide 25 mmol/L (22-30) 12/22/23 06:06
BUN 38 mg/dl (9-20) H 12/22/23 06:06
Creatinine 3.1 mg/dL (0.7-1.3) H 12/22/23 06:06
eGFR 21.35 12/22/23 06:06
Glucose 164 mg/dl (70-99) H 12/22/23 06:06
Calcium 8.2 mg/dl (8.4-10.2) L 12/22/23 06:06
Phosphorus 4.8 mg/dl (2.5-4.5) H 12/19/23 04:44
Albumin 3.5 g/dl (3.5-5.0) 12/18/23 09:36
Physical Exam
-
Vital Signs:
Vital Signs
Temp Pulse Resp BP Pulse Ox
97.6 F 101 18 140/99 95
12/22/23 11:45 12/22/23 11:45 12/22/23 11:45 12/22/23 11:45 12/22/23 11:45
Cardiovascular:: Regular rate and rhythm
Respiratory:: Bilateral: CTA
Lung Excursion:: Normal
Abdomen:: Nontender and Soft
Extremity Edema:: None: Bilateral:
Whitehead Catheter: No
--- NOTE | 2023-12-23 16:48 | W.DCSUMMARY ---
Documented by User: Nathaniel Guajardo DO, Resident 12/23/23 18:14
Discharge Summary
Discharge Data
Date of Admission: 12/18/23
Date of Discharge: 12/23/23
-
Pending Results: Yes
Additional Pending Results:
Biopsy result
Hospital Course
Discharging Physician : Lele Guajardo
Disposition : Home
Primary care physician : Dr. Anderson
Principal Discharge diagnosis : Acute on chronic anemia
Chronic Discharge diagnosis : Acute kidney injury, metabolic acidosis, diabetes mellitus type 2, essential hypertension, previous history alcohol use disorder, previous seizures on Keppra
Hospital Course : 68-year-old male presented for evaluation of low hemoglobin seen during PCP visit. Hemoglobin in the emergency department was 5.0. Patient was also found to have an SHAYY with metabolic acidosis on admission. In the emergency
department patient received 2 units packed red blood cells and was admitted to IMU for further workup and monitoring. Patient had a past medical history of a GI bleed, duodenal ulcer and gastritis. Patient was evaluated by gastroenterology and
eventually patient received a upper endoscopy. Upper endoscopy demonstrated a few small moderately erythematous mucosal plaques which were biopsied. There were no bleeding ulcers found on EGD. During his stay patient also received a another 2
units of packed red blood cells totaling 4 units packed red blood cells. His hemoglobin from 5 up to 10. Patient also had a SHAYY with metabolic acidosis, patient received IV bicarb and was followed by nephrology. Eventually both of which resolved.
Patient's hemoglobin remained stable, his metabolic acidosis and SHAYY both resolved. Patient was discharged on proton pump inhibitor and was told to follow-up with nephrology as an outpatient with a repeat BMP. Patient will also follow-up with his
primary care physician within 1 week of discharge for his chronic medical conditions. Patient was discharged home
Important imaging findings :
12/18/2023 renal ultrasound, impression:
Mildly increased renal cortical echogenicity without significant cortical volume loss suggesting mild medical renal disease
8 mm cyst in the upper pole the right kidney
Procedure findings :
12/20/2023 endoscopy, impression:
- Few plaques in the upper third of the esophagus.
Biopsied.
- Small hiatal hernia.
- Erythematous mucosa in the stomach. Biopsied.
- Non-bleeding duodenal ulcers with a clean ulcer base
(Zeeshan Class III).
- Normal second portion of the duodenum.
Suspect NSAID induced ulcers.
Recommendation: - Resume regular diet.
- Continue present medications. Recommend protonix 40
bid x8 weeks then daily x4 weeks.
- Await pathology results.
- No ibuprofen, naproxen, or other non-steroidal
anti-inflammatory drugs indefinitely.
- GI signing off will discuss with hospitalist.
Discharge Plan
-
Patient Disposition: Home (Routine Discharge)
Discharge Diagnosis/Procedures: Acute on Chronic anemia sec to GI bleed from gastric ulcers; NSAID use, acute kidney injury, metabolic acidosis, diabetes mellitus type 2, essential hypertension, alcohol use disorder
Condition: Fair
Diet: Diabetic, Carb Controlled
Activity: No restrictions and As tolerated
Driving Restrictions: As prior to admission
Bathing Restrictions: None
Blood Work: BMP blood work in a week -arrange through your PCP
Activity Restrictions/Additional Instructions:
Please follow-up with your primary care physician Dr. Anderson within 1 week of discharge
Referrals:
Claudio Lawson MD [Active] - in one week
Lawrence Anderson DO [Family Provider] - in less than 1 week
Prescriptions:
New
folic acid 1 mg Tablet
1 mg PO DAILY Qty: 30 0RF
Rx Instructions:
for a month and stop
sodium bicarbonate 650 mg Tablet
650 mg PO DAILY Qty: 10 0RF
Rx Instructions:
Further need will be based on next blood test
pantoprazole 40 mg Tablet,Delayed Release (Dr/Ec)
40 mg PO BID Qty: 60 0RF
cyanocobalamin (vitamin B-12) 1,000 mcg Tablet
1,000 mcg PO DAILY Qty: 30 0RF
thiamine HCl (vitamin B1) 100 mg Tablet
100 mg PO BID Qty: 60 0RF
Rx Instructions:
for a month and stop
glipizide 2.5 mg tablet
2.5 mg PO DAILY Qty: 30 0RF
Rx Instructions:
new medication in lieu of Metformin
Continued
levetiracetam 500 MG tablet
1,500 mg PO BID
Changed
nifedipine 30 MG tablet extended release
30 mg PO BID Qty: 60 0RF
Rx Instructions:
Dose increased from once a day to twice a day
Discontinued
metformin 1,000 MG tablet
1,000 mg PO BID
ibuprofen [Advil] 200 mg Tablet
400 mg PO BIDPRN PRN (Reason: mild pain)
Discharge Orders:
Discharge Patient (As Directed); Ordered 12/22/23
Ordered By: Anton Royal
Discharge Date and Time
Discharge Date/Time: 12/22/23 12:49
Print Language: INDIAN

Documented by User: Anton Royal MD 12/26/23 08:28
Discharge Summary
Discharge Data
Date of Admission: 12/18/23
Date of Discharge: 12/26/23
Hospital Course
Discharging Physician : Lele Guajardo
Disposition : Home
Primary care physician : Dr. Anderson
Principal Discharge diagnosis : Acute on chronic anemia, acute kidney injury, metabolic acidosis.
Chronic Discharge diagnosis : diabetes mellitus type 2, essential hypertension, previous history alcohol use disorder, previous seizures on Keppra
Hospital Course : 68-year-old male presented for evaluation of low hemoglobin seen during PCP visit. Hemoglobin in the emergency department was 5.0. Patient was also found to have an SHAYY with metabolic acidosis on admission. In the emergency
department patient received 2 units packed red blood cells and was admitted to IMU for further workup and monitoring. Patient had a past medical history of a GI bleed, duodenal ulcer and gastritis. Patient was evaluated by gastroenterology and
eventually patient received a upper endoscopy. Upper endoscopy demonstrated a few small moderately erythematous mucosal plaques which were biopsied. There were non bleeding ulcers found on EGD. During his stay patient also received a another 2
units of packed red blood cells totaling 4 units packed red blood cells. His hemoglobin from 5 up to 10. Patient also had a SHAYY with metabolic acidosis, patient received IV bicarb and was followed by nephrology. Eventually both of which resolved.
Patient's hemoglobin remained stable, his metabolic acidosis and SHAYY both resolved. Patient was discharged on proton pump inhibitor and was told to follow-up with nephrology as an outpatient with a repeat BMP. Patient will also follow-up with his
primary care physician within 1 week of discharge for his chronic medical conditions. Patient was discharged home
Important imaging findings :
12/18/2023 renal ultrasound, impression:
Mildly increased renal cortical echogenicity without significant cortical volume loss suggesting mild medical renal disease
8 mm cyst in the upper pole the right kidney
Procedure findings :
12/20/2023 endoscopy, impression:
- Few plaques in the upper third of the esophagus.
Biopsied.
- Small hiatal hernia.
- Erythematous mucosa in the stomach. Biopsied.
- Non-bleeding duodenal ulcers with a clean ulcer base
(Zeeshan Class III).
- Normal second portion of the duodenum.
Suspect NSAID induced ulcers.
Recommendation: - Resume regular diet.
- Continue present medications. Recommend protonix 40
bid x8 weeks then daily x4 weeks.
- Await pathology results.
- No ibuprofen, naproxen, or other non-steroidal
anti-inflammatory drugs indefinitely.
- GI signing off will discuss with hospitalist.
Discharge Plan
-
Patient Disposition: Home (Routine Discharge)
Discharge Diagnosis/Procedures: Acute on Chronic anemia sec to GI bleed from gastric ulcers; NSAID use, acute kidney injury, metabolic acidosis, diabetes mellitus type 2, essential hypertension, alcohol use disorder
Condition: Fair
Diet: Diabetic, Carb Controlled
Activity: No restrictions and As tolerated
Driving Restrictions: As prior to admission
Bathing Restrictions: None
Blood Work: BMP blood work in a week -arrange through your PCP
Activity Restrictions/Additional Instructions:
Please follow-up with your primary care physician Dr. Anderson within 1 week of discharge
Referrals:
Claudio Lawson MD [Active] - in one week
Lawrence Anderson DO [Family Provider] - in less than 1 week
Prescriptions:
New
folic acid 1 mg Tablet
1 mg PO DAILY Qty: 30 0RF
Rx Instructions:
for a month and stop
sodium bicarbonate 650 mg Tablet
650 mg PO DAILY Qty: 10 0RF
Rx Instructions:
Further need will be based on next blood test
pantoprazole 40 mg Tablet,Delayed Release (Dr/Ec)
40 mg PO BID Qty: 60 0RF
cyanocobalamin (vitamin B-12) 1,000 mcg Tablet
1,000 mcg PO DAILY Qty: 30 0RF
thiamine HCl (vitamin B1) 100 mg Tablet
100 mg PO BID Qty: 60 0RF
Rx Instructions:
for a month and stop
glipizide 2.5 mg tablet
2.5 mg PO DAILY Qty: 30 0RF
Rx Instructions:
new medication in lieu of Metformin
Continued
levetiracetam 500 MG tablet
1,500 mg PO BID
Changed
nifedipine 30 MG tablet extended release
30 mg PO BID Qty: 60 0RF
Rx Instructions:
Dose increased from once a day to twice a day
Discontinued
metformin 1,000 MG tablet
1,000 mg PO BID
ibuprofen [Advil] 200 mg Tablet
400 mg PO BIDPRN PRN (Reason: mild pain)
Discharge Orders:
Discharge Patient (As Directed); Ordered 12/22/23
Ordered By: Anton Royal
Discharge Date and Time
Discharge Date/Time: 12/22/23 12:49
Print Language: INDIAN
== END 2023-12-22 12:49 | disposition home or self-care (01) | DRG 378 ==
LOC: 2 SOUTH 13:27
PROVIDERS: Internal Medicine; Internal Medicine Gastroenterology; Nurse Practitioner Adult Health; Physician Assistant Medical; ADMITTING PHYSICIAN Hospitalist; ATTENDING PHYSICIAN Internal Medicine; CONSULT PHYSICIAN Specialist; EMERGENCY PHYSICIAN Emergency Medicine; FAMILY PHYSICIAN Family Medicine; OTHER PHYSICIAN Internal Medicine
PROC: 30233N1 Transfusion of Nonautologous Red Blood Cells into Peripheral Vein, Percutaneous Approach (ICD-10-PCS; 2023-12-18)
PROC: 0DB18ZX Excision of Upper Esophagus, Via Natural or Artificial Opening Endoscopic, Diagnostic (ICD-10-PCS; 2023-12-20)
PROC: 0DB68ZX Excision of Stomach, Via Natural or Artificial Opening Endoscopic, Diagnostic (ICD-10-PCS; 2023-12-20)
DX: K26.4 Chronic or unspecified duodenal ulcer with hemorrhage (principal); D62 Acute posthemorrhagic anemia; N17.9 Acute kidney failure, unspecified; E87.20 Acidosis, unspecified; D68.9 Coagulation defect, unspecified; E11.22 Type 2 diabetes mellitus with diabetic chronic kidney disease; D50.9 Iron deficiency anemia, unspecified; I12.9 Hypertensive chronic kidney disease with stage 1 through stage 4 chronic kidney disease, or unspecified chronic kidney disease; N18.30 Chronic kidney disease, stage 3 unspecified; G40.909 Epilepsy, unspecified, not intractable, without status epilepticus; F10.10 Alcohol abuse, uncomplicated; D75.839 Thrombocytosis, unspecified; E53.8 Deficiency of other specified B group vitamins; E78.5 Hyperlipidemia, unspecified; E87.5 Hyperkalemia; K31.89 Other diseases of stomach and duodenum; K22.89 Other specified disease of esophagus; K44.9 Diaphragmatic hernia without obstruction or gangrene; R19.7 Diarrhea, unspecified; Z79.1 Long term (current) use of non-steroidal anti-inflammatories (NSAID); Z79.899 Other long term (current) drug therapy; Z87.11 Personal history of peptic ulcer disease; Z87.19 Personal history of other diseases of the digestive system; Z86.010 Personal history of colon polyps
CPT/HCPCS: 88305; 88312; 36430; 76775; 80048; 80053; 80306; 81003; 81015; 82570; 82607; 82728; 82746; 82962; 83036; 83540; 83550; 83605; 83735; 84100; 84300; 85014; 85018; 85025; 85027; 85045; 85610; 85730; 86850; 86900; 86901; 86920; 88342; 96365; 96366; 96375; 99285; J2916; P9016

== ENCOUNTER 2024-01-17 11:01 | Emergency (ER) | payer BC, SELFPAY ==
[2024-01-17] VITALS (8 sets, daily range): BP systolic 161–188; BP diastolic 87–102; PULSE 91
--- NOTE | 2024-01-17 11:41 | ED.GENMED ---
Addendum entered and electronically signed by Jared Serrano DO 01/17/24 15:24:
Seen by PT they recommend home PT message sent to correctional case records supervisor
Addendum entered and electronically signed by Jared Serrano DO 01/17/24 14:33:
Update patient ataxic when he ambulated CT noted will give thiamine folate ask for PT evaluation
Original Note:
History of Present Illness
General
Chief Complaint: Fall
Source: patient
Exam Limitations: altered mental status
Time Seen by Provider: 01/17/24 11:21
Nursing documentation reviewed up to this point in time: agreed with
History of Present Illness
History of Present Illness:
68-year-old male was found on the ground during a bed check at his facility details are unclear feels him he drinks alcohol, he has seizure disorder but he has not had a seizure meds in a week or 2
He appears confused, although cooperative no overt signs of head or neck trauma
Past History
Past History
ED Past Medical History: IDDM, Seizures and Other
ED Past Surgical History: None
Social History
Tobacco: Non-smoker
Alcohol: Occasional
Drug: None
Personal:
Living: with family
Employment: Employed
Review of Systems
Review of Systems
All Other Systems: Not applicable
Respiratory: Reports no symptoms
Cardiac: Reports no symptoms
ABD/GI: Reports no symptoms
Phy Exam
Physical Exam
Physical Exam:
Physical Exam
General: Chronically ill-appearing male slightly tremulous
Neck: No tongue bite
Heart: s1/s2 regular rate and rhythm, no murmur. equal radial pulses.
Lungs: no acute respiratory distress. clear bilaterally
Abdomen: Nontender
Neuro: Cooperative
Skin: no rash
Psychiatric: well kept. interactive and cooperative
Extremities: no edema.
Course
Orders/Labs/Results
Orders:
Orders
01/17/24 11:34
Electrocardiogram (*1) Urgent
Reason for Study: Other
Other Reason for Exam: trauma
CT Cervical Spine W/o Iv Contr Urgent
Comment:
Reason For Exam: fall
CT Head W/o Iv Contrast Urgent
Comment:
Reason For Exam: fall
Cardiac Monitoring- Treatment ONCE
EKG- Treatment ONCE
01/17/24 11:35
0.9% Sodium Chloride 500 ml [Nss] 500 ml IV BOLUS
Levetiracetam Injectable [Keppra] 1,500 mg IV NOW STA
01/17/24 11:44
CPK [Creatine Phosphokinase] Urgent
Complete Blood Count/With Diff Urgent
Comprehensive Metabolic Panel Urgent
Abnormal Lab Results
01/17/24
11:44
RBC 3.10 L 10^6/uL
(4.70-6.10)
Hgb 9.4 L g/dL
(13.0-18.0)
Hct 28.8 L %
(39.0-52.0)
MCHC 32.6 L g/dL
(33.0-37.0)
RDW 17.5 H %
(11.5-14.5)
MPV 10.7 H fL
(7.4-10.4)
Abs Immat Gran (auto) 0.1 H 10^3/uL
(0-0.05)
Absolute Neuts (auto) 7.6 H 10^3/uL
(1.4-6.5)
Absolute Lymphs (auto) 0.6 L 10^3/uL
(1.2-3.4)
Immature Gran % 0.6 H %
(0-0.5)
Neutrophils % 86.5 H %
(42.2-75.2)
Lymphocytes % 6.6 L %
(20.5-51.1)
Chloride 108 H mmol/L
(98-107)
Carbon Dioxide 12 L* mmol/L
(22-30)
BUN 53 H mg/dl
(9-20)
Creatinine 3.3 H mg/dL
(0.7-1.3)
Glucose 149 H mg/dl
(70-99)
Creatine Kinase 1272 H U/L
(55-170)
01/17/24 11:44
01/17/24 11:44
Vital Signs
Initial and Last Documented VS:
Initial Vital Signs
Temp Pulse Resp BP Pulse Ox
98.5 F 73 16 163/87 98
01/17/24 11:17 01/17/24 11:17 01/17/24 11:17 01/17/24 11:17 01/17/24 11:17
Last Documented Vital Signs
Temp Pulse Resp BP Pulse Ox
98.5 F 84 19 161/96 99
01/17/24 11:17 01/17/24 12:00 01/17/24 12:00 01/17/24 12:00 01/17/24 11:21
MDM/Problems Addressed
Differential Diagnosis Includes:
Seizure fall electrolyte abnormality arrhythmia
MDM/Problems Addressed:
Fall on the ground seizure
Chronic conditions affecting care: Neurological disorder
Acute Exacerbation and/or Progression of Chronic Illness: Neurological disorder
*Radiology
Radiology exam reviewed: radiology read reviewed
*Pulse Oximetry
Patient hypoxic: no
*EKG
Interpreted by ED Provider?: Yes
Interpretation: normal
Comparison EKG: no comparison EKG present
Heart Rate: 78
Rate: normal
Rhythm: sinus
Ischemia: no ischemia
*Foam Gun Operator Interpretation
Rate: normal
Interpretation: normal
Heart Rate: 78
Rhythm: sinus
*Critical Care Note
Total Time (30-74mins, 75-104mins- exclusive of procedures): Not Applicable
Update Note
Update Note:
Update etiology not entirely clearly does have seizure disorder he drinks admits to noncompliance with his Keppra rule out anything intracerebral in terms of trauma electrolytes cardiac monitoring EKG give him a dose of IV Keppra encouraged him to
take as prescribed
Update labs are noted, suspect he did have a seizure, encouraged not to drive will send DMV form in,
Refill his Keppra
ED Attending Note
-
Portions of this chart may have been created with voice recognition software.� Occasional wrong word or��sound alike� substitutions may have occurred due to the inherent limitations of voice recognition software.
Discharge Plan
Departure
Patient Disposition: Home (Routine Discharge)
Date of Disposition: 01/17/24
Time of Disposition: 13:17
Patient with high blood pressure during this ER visit?: No
Condition: Fair
Discharge Problem:
Seizure
Instructions: Epilepsy in adults
Prescriptions:
New
levetiracetam [Keppra] 500 mg tablet
1,500 mg PO BID Qty: 90 4RF
No Action
levetiracetam 500 MG tablet
1,500 mg PO BID
folic acid 1 mg Tablet
1 mg PO DAILY Qty: 30 0RF
Rx Instructions:
for a month and stop
sodium bicarbonate 650 mg Tablet
650 mg PO DAILY Qty: 10 0RF
Rx Instructions:
Further need will be based on next blood test
pantoprazole 40 mg Tablet,Delayed Release (Dr/Ec)
40 mg PO BID Qty: 60 0RF
cyanocobalamin (vitamin B-12) 1,000 mcg Tablet
1,000 mcg PO DAILY Qty: 30 0RF
thiamine HCl (vitamin B1) 100 mg Tablet
100 mg PO BID Qty: 60 0RF
Rx Instructions:
for a month and stop
nifedipine 30 MG tablet extended release
30 mg PO BID Qty: 60 0RF
Rx Instructions:
Dose increased from once a day to twice a day
glipizide 2.5 mg tablet
2.5 mg PO DAILY Qty: 30 0RF
Rx Instructions:
new medication in lieu of Metformin
Referrals:
Lawrence Anderson, [Family Provider] -
Activity Restrictions/Additional Instructions:
Do not drive until you are cleared by your primary care provider or neurology
Do not drink alcohol
Take your seizure meds as prescribed
Interventions
Interventions:
*Risk Screen - Suicide Last Done: 01/17/24 11:20
*Neglect/Abuse Screening Last Done: 01/17/24 11:20
ED- Fall Risk Assessment Last Done: 01/17/24 11:23
*ED COVID-19 Vaccine History Last Done: 01/17/24 11:22
ED-Musculoskeletal Assessment Last Done: 01/17/24 11:22
ED- Neurological Assessment Last Done: 01/17/24 11:22
ED-Skin Assessment Last Done: 01/17/24 12:07
Discharge Date and Time
Print Language: MACEDONIAN
[2024-01-17] MEDS: KEPPRA 1500 MG IV (11:50)
[2024-01-17] MEDS: NSS 500 IV (11:50)
[2024-01-17 12:02] LABS: % Basophils 0.7 % (0-2); % Immature Granulocytes 0.6 % (0-0.5); % Lymphocytes 6.6 % (20.5-51.1); % Monocytes 5.6 % (1.7-9.3); % Neutrophils 86.5 % (42.2-75.2); Absolute Basophils 0.1 10^3/uL (0-0.2); Absolute Immature Granulocytes 0.1 10^3/uL (0-0.05); Absolute Lymphocytes 0.6 10^3/uL (1.2-3.4); Absolute Monocytes 0.5 10^3/uL (0.1-0.6); Absolute Neutrophils 7.6 10^3/uL (1.4-6.5); Hematocrit 28.8 % (39.0-52.0); Hemoglobin 9.4 g/dL (13.0-18.0); Mean Corp Hgb Conc. 32.6 g/dL (33.0-37.0); Mean Corpuscular Hgb 30.3 pg (27.0-31.0); Mean Corpuscular Volume 92.9 fL (80.0-94.0); Mean Platelet Volume 10.7 fL (7.4-10.4); Nucleated Red Blood Cells % 0 % (-); Platelet Count 190 10^3/uL (130-400); Red Cell Dist. Width 17.5 % (11.5-14.5); White Blood Cell Count 8.8 10^3/uL (4.8-10.8)
[2024-01-17 12:24] LABS: ALT (SGPT) 21 U/L (0-50); AST (SGOT) 40 U/L (17-59); Albumin 4.1 g/dl (3.5-5.0); Alkaline Phosphatase 66 U/L (38-126); Blood Urea Nitrogen 53 mg/dl (9-20); Calcium 9.4 mg/dl (8.4-10.2); Carbon Dioxide 12 mmol/L (22-30); Chloride 108 mmol/L (98-107); Glucose 149 mg/dl (70-99); Potassium 4.7 mmol/L (3.5-5.1); Sodium 144 mmol/L (135-145); Total Bilirubin 0.7 mg/dl (0.2-1.3); eGFR 19.81
[2024-01-17 12:35] LABS: Creatine Phosphokinase 1272 U/L (55-170)
[2024-01-17] MEDS: FOLVITE 50.2 MG IV (14:59)
[2024-01-17] MEDS: THIAMINE INJECTION 255 MG IV (15:34)
--- NOTE | 2024-01-17 15:44 | CM ---
CM was consulted for home PT. CM spoke with patient and he plans to return to work this week. CM advised that patient would not qualify for home PT. Patient is willing to follow up with outpatient PT. Patient will be given written script for PT.
CLIFF updated bedside RN and ED physician.
== END 2024-01-17 17:00 | disposition home or self-care (01) ==
LOC: EMR 11:01
PROVIDERS: EMERGENCY PHYSICIAN Emergency Medicine; FAMILY PHYSICIAN Family Medicine
DX: R56.9 Unspecified convulsions (principal); W19.XXXA Unspecified fall, initial encounter; R41.82 Altered mental status, unspecified; E11.9 Type 2 diabetes mellitus without complications
CPT/HCPCS: 99284; 96365; 96367; 96375; 70450; 72125; 80053; 82550; 85025; 93005

== ENCOUNTER 2024-06-28 04:11 | Inpatient (IN) | payer BC, SELFPAY ==
[2024-06-28] VITALS (25 sets, daily range): BP systolic 135–189; BP diastolic 79–114; BMI 26.2
[2024-06-28 00:40] LABS: ALT (SGPT) 18 U/L (0-50); AST (SGOT) 25 U/L (17-59); Albumin 4.3 g/dl (3.5-5.0); Alkaline Phosphatase 68 U/L (38-126); Blood Urea Nitrogen 67 mg/dl (9-20); Calcium 8.8 mg/dl (8.4-10.2); Carbon Dioxide 6 mmol/L (22-30); Chloride 101 mmol/L (98-107); Estimated Creatinine Clearance 14 ml/min; Glucose 301 mg/dl (70-99); Sodium 131 mmol/L (135-145); Total Bilirubin 0.3 mg/dl (0.2-1.3); Total Protein 6.6 g/dl (6.3-8.2); eGFR 12.25
[2024-06-28 01:06] LABS: % Basophils 0.1 % (0-2); % Immature Granulocytes 1.5 % (0-0.5); % Lymphocytes 2.7 % (20.5-51.1); % Monocytes 5.7 % (1.7-9.3); Absolute Immature Granulocytes 0.2 10^3/uL (0-0.05); Absolute Lymphocytes 0.3 10^3/uL (1.2-3.4); Absolute Monocytes 0.6 10^3/uL (0.1-0.6); Absolute Neutrophils 9.3 10^3/uL (1.4-6.5); Hematocrit 15.8 % (39.0-52.0); Hemoglobin 5.5 g/dL (13.0-18.0); Mean Corp Hgb Conc. 34.8 g/dL (33.0-37.0); Mean Corpuscular Hgb 35.5 pg (27.0-31.0); Mean Corpuscular Volume 101.9 fL (80.0-94.0); Mean Platelet Volume 8.7 fL (7.4-10.4); Nucleated Red Blood Cells % 0 % (-); Platelet Count 217 10^3/uL (130-400); Red Blood Cell Count 1.55 10^6/uL (4.70-6.10); Red Cell Dist. Width 13.4 % (11.5-14.5); White Blood Cell Count 10.3 10^3/uL (4.8-10.8)
[2024-06-28] MEDS: NSS 500 IV (01:22)
--- NOTE | 2024-06-28 01:38 | ED.GENMED ---
History of Present Illness
General
Chief Complaint: Weakness
Source: patient
Time Seen by Provider: 06/28/24 00:44
History of Present Illness
History of Present Illness:
This is 69-year-old male with a history of renal insufficiency, seizures, diabetes, daily alcohol use who presents after he felt weak at home. Patient states he took his seizure medications but is not fully sure whether or not he had a seizure.
EMS was concerned that he may have had a seizure. The patient denies tongue biting urinary incontinence. Patient does admit he had a few cocktails after work. He drinks vodka with a mixture. The patient my assessment feels better. He states he
still feels a little bit weak but for the most part feels much better. He admits that he recently started a medicine for arthritis but only took 1 dose and does not know the name of the medicine. He does not check his sugar regularly. He does
drink a few drinks most days of the week. He does not smoke. Denies headache or fevers. No chest pain. No shortness of breath.
Past History
Past History
ED Past Medical History: IDDM, Seizures and Other (Kidney disease, daily alcohol use)
ED Past Surgical History: None
Social History
Tobacco: Non-smoker
Alcohol: Daily
Drug: None
Personal:
Living: with family
Employment: Employed
Phy Exam
Physical Exam
Physical Exam:
CONSTITUTIONAL Patient alert and oriented to person, place and time. Well-appearing. Vital signs reviewed.
HEAD atraumatic, normocephalic.
EYES eyelids normal to inspection, Extraocular muscles intact, Conjunctiva normal, Sclera normal.
ENT no evidence of tongue biting
NECK normal range of motion, Trachea midline, no jugular venous distention.
RESPIRATORY CHEST No respiratory distress noted, Chest expansion equal, Bilateral breath sounds clear.
CARDIOVASCULAR regular and tachycardic
Rectal exam brown stool, trace heme positive
large left scrotal hernia, nontender
ABDOMEN abdomen nontender, Bowel sounds normal. No distention.
BACK normal inspection, no obvious deformities
UPPER EXTREMITY range of motion normal, Motor strength normal, no cyanosis, edema noted to the left greater than right upper extremities.
LOWER EXTREMITY range of motion normal, Motor strength normal, no cyanosis, bilateral edema up to the lower abdomen
NEURO Speech normal, No focal motor deficits, Aubrie coma scale 15, Memory normal, Cranial Nerves intact to screening exam.
SKIN skin warm, dry, and normal in color.
Course
Orders/Labs/Results
Orders:
Orders
06/28/24 00:17
CMP [Comprehensive Metabolic Panel] Urgent
Complete Blood Count/With Diff Urgent
06/28/24 01:04
0.9% Sodium Chloride 500 ml [Nss] 500 ml IV BOLUS
06/28/24 01:10
* Blood Bank Products Urgent
Blood Bank Products: *Packed RBC Leuko(PRBC's)
Quantity: 2
Transfuse Today: Yes
Reason: Anemia
06/28/24 01:11
IV Insert/Care/Rem.- Treatment PRN
06/28/24 01:28
Alcohol Urgent
Lactic Acid Urgent
Prothrombin Time Urgent
Venous Blood Gas Urgent
%Oxygen/Room Air: RA
06/28/24 01:31
Type+Screen Urgent
06/28/24 01:43
Pantoprazole [Protonix IV] 80 mg IV NOW STA
06/28/24 02:10
UA Reflex to Culture [Urinalysis Reflex To Culture] Urgent
Date Specimen was Collected: 06/28/24
Time Specimen was Collected: 02:10
Abnormal Lab Results
06/28/24 06/28/24
00:17 01:28
RBC 1.55 L 10^6/uL
(4.70-6.10)
Hgb 5.5 L* g/dL
(13.0-18.0)
Hct 15.8 L* %
(39.0-52.0)
MCV 101.9 H fL
(80.0-94.0)
MCH 35.5 H pg
(27.0-31.0)
Abs Immat Gran (auto) 0.2 H 10^3/uL
(0-0.05)
Absolute Neuts (auto) 9.3 H 10^3/uL
(1.4-6.5)
Absolute Lymphs (auto) 0.3 L 10^3/uL
(1.2-3.4)
Immature Gran % 1.5 H %
(0-0.5)
Neutrophils % 90.0 H %
(42.2-75.2)
Lymphocytes % 2.7 L %
(20.5-51.1)
VBG pH 7.15 L*
(7.32-7.43)
VBG pCO2 34 L mmHg
(35-48)
VBG pO2 128 H mmHg
(30-50)
VBG HCO3 11.8 L mmol/L
(22-27)
Sodium 131 L mmol/L
(135-145)
Carbon Dioxide 6 L* mmol/L
(22-30)
BUN 67 H mg/dl
(9-20)
Creatinine 4.9 H* mg/dL
(0.7-1.3)
Glucose 301 H mg/dl
(70-99)
Lactic Acid 5.9 H* mmol/L
(0.7-2.0)
06/28/24 00:17
06/28/24 00:17
Vital Signs
Initial and Last Documented VS:
Initial Vital Signs
Temp Pulse Resp BP Pulse Ox
96.7 F L 106 18 168/92 99
06/28/24 00:09 06/28/24 00:09 06/28/24 00:09 06/28/24 00:09 06/28/24 00:09
Last Documented Vital Signs
Temp Pulse Resp BP Pulse Ox
96.7 F L 101 18 170/90 100
06/28/24 00:09 06/28/24 01:30 06/28/24 01:30 06/28/24 01:00 06/28/24 01:30
MDM/Problems Addressed
MDM/Problems Addressed:
Acute renal failure on chronic renal failure, severe acute lactic acidosis, possible seizure, alcohol use, hyperglycemia, acute anion gap metabolic acidosis, acute severe anemia, GI bleed
*Pulse Oximetry
Patient hypoxic: no
*Quality Control Microbiologist Interpretation
Rate: tachycardiac
Interpretation: abnormal
Rhythm: sinus
*Critical Care Note
Total Time (30-74mins, 75-104mins- exclusive of procedures): 40 minutes
Data Reviewed
Review of Other/Old Records Reveals: Discharge Summary (Discharge summary reviewed from December 2023 revealing history at that time of a similar presentation)
Source: patient
Prescriptions/Medications Considered But Not Given:
Consider antibiotics but afebrile
Patient Management
Discussion with other providers: Hospitalist
Escalation/DeEscalation of care consider admission/obs:
Sick 9-year-old male presents with weakness. Found to have significant anemia with hemoglobin 5.5. Has had anemia in the past. Does have trace heme positive stools but is noted to be a daily or frequent alcohol drinker. Does clearly have worse
renal failure. Acute anion gap metabolic acidosis noted that I suspect is related to his lactic acidosis. Do not suspect DKA. Patient is awake and alert and feels better. Gentle fluids in light of the idea that he has third spacing as we can
continue to volume expand with blood products. Already on Keppra. Will need tight blood glucose control
ED Attending Note
-
Portions of this chart may have been created with voice recognition software.� Occasional wrong word or��sound alike� substitutions may have occurred due to the inherent limitations of voice recognition software.
Discharge Plan
Departure
Patient Disposition: Admit
Date of Disposition: 06/28/24
Time of Disposition: 02:17
Admit to: IMU
Presentation/result/management discussed w/ accepting MD/DO: Hospitalist
Discharge Problem:
Acute kidney injury, Metabolic acidosis, Acidosis, lactic, Acute hyperglycemia, Possible seizure
Prescriptions:
No Action
nifedipine 30 MG tablet extended release
30 mg PO BID Qty: 60 0RF
Rx Instructions:
Dose increased from once a day to twice a day
glipizide 2.5 mg tablet
2.5 mg PO DAILY Qty: 30 0RF
Rx Instructions:
new medication in lieu of Metformin
levetiracetam [Keppra] 1,000 mg Tablet
1,500 mg PO Q12H
Interventions
Interventions:
*Risk Screen - Suicide Last Done: 06/28/24 00:09
*General Assessment Last Done: 06/28/24 00:09
*Neglect/Abuse Screening Last Done: 06/28/24 00:09
*ED COVID-19 Vaccine History Last Done: 06/28/24 00:09
Discharge Date and Time
Print Language: GREEK
[2024-06-28 01:42] LABS: Venous Blood Gas B.E. -15.6 mmol/L (-4 to +4); Venous Blood Gas HCO3 11.8 mmol/L (22-27); Venous Blood Gas pCO2 34 mmHg (35-48); Venous Blood Gas pO2 128 mmHg (30-50)
[2024-06-28 01:46] LABS: Venous Blood Gas pH 7.15 (7.32-7.43)
[2024-06-28 01:55] LABS: INR 1.01; PT 13.6 Sec (11.4-14.6)
[2024-06-28 01:57] LABS: Alcohol 144 mg/dl
[2024-06-28 02:00] LABS: Lactic Acid 5.9 mmol/L (0.7-2.0)
[2024-06-28] MEDS: PROTONIX IV 80 MG IV (02:03)
[2024-06-28 02:23] LABS: Urine Albumin 3+ (Neg - Trace); Urine Bilirubin Negative (Negative); Urine Character Clear (Clear); Urine Color Yellow; Urine Glucose 3+ (Negative); Urine Ketone Negative (Negative); Urine Leukocyte Negative (Negative); Urine Nitrite Negative (Negative); Urine Occult Blood 4+ (Negative); Urine Urobilinogen Negative (Neg - 1+)
[2024-06-28 02:54] LABS: Urine Bacteria Few (Negative); Urine Squamous Cell 0-2 /LPF (Few); Urine White Cell 0-2 /HPF (0-5)
--- NOTE | 2024-06-28 03:11 | HPS.HSE ---
Family Physician
-
Family Physician: NOT KNOW UNKNOWN - PT DOES
Chief Complaint
-
Fatigue / Weakness
History of Present Illness
Patient is a 69y M with PMH significant for CKD, hypertension and DM-II who presents to ED complaining of feeling very weak. Patient states that he has been feeling very fatigued for the past several days. No other specific complaints or
concerns. Today he got home from work and was unable to make it to the couch due to weakness. He lie on the floor for about an hour. He did not fall or suffer any trauma or injury. He did not lose consciousness. Patient was still unable to get
up after an hour and called 911. EMS brought him to the hospital for further evaluation.
In the ED, patient is noted to have multiple lab abnormalities including SHAYY, acidosis and severe anemia.
He denies any noted bleeding. He denies any issues with urination / difficulty passing urine. He denies any recent use of NSAIDs including ibuprofen / Advil / etc.
Patient does state that his Orthopedic physician gave him a new Rx for 'swelling from arthritis'. He cannot recall the name of this medication, but he took only one dose so far.
Medical History
Past Medical History
Past Medical History: Reports Other
Additional Past Medical History:
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
Hypertension
Diabetes Mellitus, Type II
CKD Stage III
GERD / Duodenal Ulcers (2019 and 2023)
Past Surgical History: Reports None
Social History
Tobacco: Non-smoker
Alcohol: Other (2 vodka drinks daily. Last drink this evening.)
Drug: None
Family History
Family History: Diabetes
Allergies / Home Medications
Allergies reflects when Allergies were last updated in [facility].
Home Medications with original date entered in [facility]
Allergy/Medication List:
Allergies
Allergy/AdvReac Type Severity Reaction Status Date / Time
No Known Allergies Allergy Verified 06/28/24 00:09
Home Medications
glipizide 2.5 mg tablet 2.5 mg PO DAILY #30 tabs 12/22/23
nifedipine 30 mg tablet,extended release 30 mg PO BID Blood pressure #60 tabs 12/22/23
levetiracetam 1,000 mg tablet (Keppra) 1,500 mg PO Q12H 06/28/24
Review of Systems
-
History Source: Patient
A 12 point ROS was completed and negative except as noted: Yes
Constitutional: Reports Fatigue; Denies Fever or Chills
Respiratory: Denies Cough or Trouble Breathing
Cardiac: Denies Chest Pain or Palpitations
Abdomen/GI: Denies Abdominal Pain, Nausea, Vomiting, Diarrhea, Bloody Stools or Black Stools
: Denies Dysuria, Frequency, Difficulty Voiding or Bleeding
Musculoskeletal: Reports Joint Pain, Joint Swelling and Edema
Neurological: Denies Dizzy or Headache
Psych: Denies Depression or Anxiety
Physical Exam
Vital Signs
Vital Signs
Temp Pulse Resp BP Pulse Ox
96.7 F L 101 13 173/88 99
06/28/24 00:09 06/28/24 03:00 06/28/24 03:00 06/28/24 03:00 06/28/24 02:45
Physical Exam
General: Other (69y M in no acute distress.)
HEENT: Moist mucous membranes and PERRLA
Respiratory: Other (Decreased at bases - otherwise clear.)
Cardiac: S1/S2 and Regular Rhythm; No Murmur
GI: Soft, Non Tender, Non Distended and Normal Bowel Sounds
Musculoskeletal: No Clubbing, No Cyanosis and Other (LUE edema. Trace - 1+ bilateral LE edema.)
Neuro: AO x 3 and Nonfocal/grossly intact
Laboratory Results
-
06/28/24 00:17
06/28/24 00:17
Laboratory Results
PT 13.6 Sec (11.4-14.6) 03/23/25 01:28
INR 1.01 06/28/24 01:28
Lactic Acid 5.9 mmol/L (0.7-2.0) H* 06/28/24 01:28
Total Bilirubin 0.3 mg/dl (0.2-1.3) 06/28/24 00:17
AST 25 U/L (17-59) 06/28/24 00:17
ALT 18 U/L (0-50) 06/28/24 00:17
Alkaline Phosphatase 68 U/L (38-126) 06/28/24 00:17
Impression/Plan
-
A/P: Patient is a 69y M with PMH significant for HTN, DM-II and CKD who presents to ED for evaluation of weakness / fatigue.
Severe Symptomatic Anemia
GERD / Duodenal Ulcers
- Admit to IMU for further evaluation and treatment.
- No gross bleeding. Patient reports occasional black stools - but also takes iron supplements.
- Trace heme positive stool in the ED.
- Prior h/o duodenal ulcers (2019 and 2023).
- 2 units PRBCs ordered in the ED. Follow H&H and provide additional transfusions if needed.
- IV PPI BID for now.
- GI evaluation for additional recommendations / possible endoscopic examination.
- Patient denies any recent NSAID use (maybe a single dose today - ? new med for arthritis).
- Follow for clinical improvement.
SHAYY on CKD III
Anion Gap Metabolic Acidosis / Lactic Acidosis
- Similar to prior admission - though at that time was attributed to NSAID use.
- No reported issues with urine output. Bladder scan protocol and straight cath if needed.
- IVFs with supplemental bicarb (when blood not transfusing).
- Nephrology evaluation for additional recommendations.
- Follow serial lactate for improvement.
DM-II
- Uncontrolled. Glucose 301. On PO glipizide only. Does not monitor glucose at home.
- Doubt DKA as acidosis seems primarily due to lactic acid.
- IVFs / volume with blood / bicarb as noted above.
- Follow glucose and cover with SSI for now.
- Begin basal dosing if needed. Hold glipizide for now.
- Update A1C.
Benign Hypertension
- BP elevated in the ED despite lactic acidosis / anemia / etc.
- Continue nifedipine BID and adjust regimen as needed for improved BP control.
- May ultimately benefit from diuresis once acidosis improved given noted edema.
Remote Seizure Disorder
- Prior seizure reportedly due to 'brain infection'.
- No seizure activity since 2014.
- Continue Keppra without changes.
Alcohol Use Disorder
- Patient admits to daily EtOH intake.
- Likely contributing to multiple issues including duodenal ulcers, GI blood loss, acidosis, etc.
- MSAS protocol and BZDs PRN for symptoms of withdrawal.
- Thiamine / folate / MVI replacement.
LUE Edema
- Asymmetric edema of the LUE. Check US to rule out DVT.
DVT Prophylaxis: SCDs for now given significant edema / suspected GI source of bleeding.
Code Status: Full
--- NOTE | 2024-06-28 04:18 | PTCARENOTE ---
Pt. arrived from ED uneventfully.
Placed on monitor handoff verification completed.
1 Uprbc infusing, second to start upon completion.
see assessment flowsheets for further details.
--- NOTE | 2024-06-28 04:34 | PTCARENOTE ---
Bedside US duplex negative per medical transcription radiology,
--- NOTE | 2024-06-28 05:08 | PTCARENOTE ---
Wallet and car keys placed in patient belongings bag w. rest of things at bedside.
[2024-06-28 05:18] LABS: Lactic Acid 3.2 mmol/L (0.7-2.0)
[2024-06-28] MEDS: KEPPRA 1500 MG PO ×2 (05:18→16:00)
[2024-06-28] MEDS: SODIUM BICARBONATE 1150 MEQ IV ×3 (05:18→23:09)
[2024-06-28 05:20] LABS: APTT 27.8 Sec (23.4-35.0)
[2024-06-28 05:28] LABS: Iron 105 ug/dl (49-181)
[2024-06-28 05:37] LABS: Percent Saturation 38 % (20-50); Total Iron Binding Capacity 272 ug/dl (261-462)
[2024-06-28 05:40] LABS: Blood Urea Nitrogen 68 mg/dl (9-20); Calcium 8.5 mg/dl (8.4-10.2); Carbon Dioxide 8 mmol/L (22-30); Chloride 105 mmol/L (98-107); Estimated Creatinine Clearance 16 ml/min; Glucose 241 mg/dl (70-99); Magnesium 1.6 mg/dl (1.6-2.3); Phosphorus 4.5 mg/dl (2.5-4.5); Potassium 4.9 mmol/L (3.5-5.1); Sodium 131 mmol/L (135-145); eGFR 14.33
[2024-06-28 05:58] LABS: TSH Reflex To Free T4 1.96 uIU/ml (0.47-4.68)
[2024-06-28 06:34] LABS: Folate 3.6 ng/ml (2.76-20); Vitamin B12 250 pg/ml (239-931)
[2024-06-28] MEDS: NOVOLOG FLEXPEN-MODERATE RESISTANCE 3 UNITS SC (06:49)
[2024-06-28] MEDS: NSS (PRESERVATIVE FREE) 10 ML IV ×2 (08:16→19:16)
[2024-06-28] MEDS: PROTONIX IV 40 MG IV ×2 (08:16→19:17)
[2024-06-28] MEDS: PROCARDIA XL (EXTENDED RELEASE) 30 MG PO ×2 (08:16→19:16)
[2024-06-28] MEDS: THIAMINE INJECTION 200 MG IV ×2 (08:16→15:59)
[2024-06-28] MEDS: FOLVITE 1 MG PO (08:16)
--- NOTE | 2024-06-28 08:30 | PTCARENOTE ---
Received pt @ change of shift, assessment per charting- see flow sheet. CBC drawn and sent to lab s/p blood transfusions overnight; results pending. Pt. instructed on how to report care concerns and call scott in reach.
[2024-06-28 08:39] LABS: Hematocrit 21.1 % (39.0-52.0); Hemoglobin 7.3 g/dL (13.0-18.0)
--- NOTE | 2024-06-28 09:33 | W.PN.UPDATE ---
Update Note
Progress Note Update
Admitted by Dr. Gregory this morning
Admitted with severe anemia and trace heme positive stools. Has a history of prior duodenal ulcer. Ongoing alcohol abuse. No overt GI bleed. Hemodynamically stable. Status posttransfusion. GI eval pending. Continue with PPI IV twice daily.
Acute kidney injury. Denies any prostate issues or retention issues. He may have a chronic kidney disease. Last known creatinine January 2024 was 3.3. Check bladder scan. Consider IV fluids and follow creatinine. Await nephrology input.
Severe metabolic acidosis secondary to lactic acidosis. Abdomen benign. No acute GI symptoms. Hemodynamically stable. Unclear if related to alcoholism. His alcohol level was 144 when he came in. His beer hydroxybutyrate was within the normal
limit. Continue with hydration and follow-up.
Alcohol use disorder-denies prior history of withdrawal. Currently this morning without any tremors or anxiety but has a is heart rate in blood pressure high. Continue with alcohol withdrawal syndrome protocol.
Diet per GI
[2024-06-28 10:25] LABS: Lactic Acid 0.9 mmol/L (0.7-2.0)
[2024-06-28 10:39] LABS: Amphetamines Negative (Negative); Barbiturates Negative (Negative); Benzodiazepines Negative (Negative); Buprenorphine Negative (Negative); Cocaine Negative (Negative); Marijuana Negative (Negative); Methadone Negative (Negative); Methamphetamines Negative (Negative); Opiates Negative (Negative); Phencyclidine Negative (Negative); Tricyclic Antidepressants Negative (Negative)
[2024-06-28 12:05] LABS: Glucose - Point of Care 139 mg/dl (70-99)
[2024-06-28 12:58] LABS: Glycohemoglobin (HgbA1c) 6.8 % (4.0-5.6)
--- NOTE | 2024-06-28 13:42 | W.CON.NEPH ---
Consultation
-
Date/Time Consultation Requested: 06/28/2024 at 4 AM.
Date/Time Consultation Performed: 06/28/2024 at 12 PM
Requesting Provider: Dr. Royal
Performing Provider: Dr. Iniguez
Reason for Consultation: Acute kidney injury
Medical History
-
Chief Complaint: Acute kidney injury
History of Present Illness:
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
hemoglobin of 5.5 acute kidney injury and acute metabolic acidosis.
Renal consult for acute kidney injury metabolic acidosis.
Reviewed previous admission where he presented similar fashion with a hemoglobin of 5 taking excessive NSAIDs. He was discharged with a creatinine of 3.3 presents with a creatinine greater than 4 and a bicarbonate of 8.
He is seen in the ICU he is alert and awake. He does have history of alcohol drinks 4-5 beers daily.
Past Medical History
Hypertension, brain infection, seizure disorder, diabetes mellitus type 2, hyperlipidemia, knee pain
Social History
Tobacco: Non-Smoker
Alcohol: Daily
Family History
Family History: Not Pertinent
Allergies / Home Medications
Allergy/AdvReac Type Severity Reaction Status Date / Time
No Known Allergies Allergy Verified 06/28/24 00:09
�Medication �Instructions �Recorded �Confirmed �Type
glipizide 2.5 mg tablet 2.5 mg PO DAILY #30 tabs 12/22/23 06/28/24 Rx
nifedipine 30 mg tablet,extended 30 mg PO BID Blood pressure #60 12/22/23 06/28/24 Rx
release tabs
levetiracetam 1,000 mg tablet 1,500 mg PO Q12H 06/28/24 06/28/24 History
(Keppra)
Review of Systems
-
No chest pain or shortness of breath. Fatigue decreased strength in lower extremity. No hematuria no difficulty urinating
All other systems: Negative unless noted
Physical Exam
Vital Signs
Vital Signs
Temp Pulse Resp BP Pulse Ox
98.7 F 101 17 161/92 99
06/28/24 11:27 06/28/24 13:00 06/28/24 13:00 06/28/24 12:00 06/28/24 13:00
Lab Results
WBC Cancelled 06/28/24 04:38
RBC Cancelled 06/28/24 04:38
Hgb 7.3 g/dL (13.0-18.0) L D 06/28/24 08:13
Hct 21.1 % (39.0-52.0) L 06/28/24 08:13
Plt Count Cancelled 06/28/24 04:38
Sodium 131 mmol/L (135-145) L 06/28/24 04:38
Potassium 4.9 mmol/L (3.5-5.1) 06/28/24 04:38
Chloride 105 mmol/L (98-107) 06/28/24 04:38
Carbon Dioxide 8 mmol/L (22-30) L* 06/28/24 04:38
BUN 68 mg/dl (9-20) H 06/28/24 04:38
Creatinine 4.3 mg/dL (0.7-1.3) H* 06/28/24 04:38
eGFR 14.33 06/28/24 04:38
Glucose 241 mg/dl (70-99) H 06/28/24 04:38
Calcium 8.5 mg/dl (8.4-10.2) 06/28/24 04:38
Phosphorus 4.5 mg/dl (2.5-4.5) 06/28/24 04:38
Albumin 4.3 g/dl (3.5-5.0) 06/28/24 00:17
Physical Exam
Patient is awake alert oriented and in no distress. Mood and affect were pleasant, insight and judgment were good. Pupils are equal round and reactive to light, extraocular movements are intact, sclera were anicteric. Hearing was normal, ears and
nose are intact. Oropharynx was clear. Neck was supple with trachea midline and no thyromegaly. Heart was regular rate and rhythm without rubs. Lower extremities without edema. Lungs were clear to auscultation bilaterally and with normal
excursion. Abdomen was soft, nontender, with normal active bowel sounds, and no hepatosplenomegaly. Skin was without rash and with normal turgor.
Data Reviewed
-
Labs: Labs Reviewed by me, Discussed with Nurse and Discussed with Patient
Assessment/Plan
-
Assessment
SHAYY
Metabolic acidosis
Hyperkalemia
Hypertension
Acute anemia hemoglobin 5.5
Likely upper GI bleed
Diabetes mellitus type 2
Seizure disorder.
Alcohol abuse
Plan
SHAYY-on chronic kidney disease with a discharge creatinine last January 2024 3.3 with a presenting creatinine of 4.9
occult positive stool in the ED. Status post endoscopy no active bleeding ulcer January 2024. patient not taking NSAIDs as he was last admission has been taken Tylenol.
He was prescribed anti-inflammatory for knee by orthopedics but only took it 1 time he is not certain to the name.
met acidosis = continue bicarbonate drip will increase 150 mL/min. Lactate has normalized
Status post transfusion of packed red blood cells.
Monitor urine output.
Check renal ultrasound if no improvement in urine output.
No acute need for dialysis at this time
Total Time Spent with Patient (in minutes): 35
--- NOTE | 2024-06-28 14:35 | CON.GI ---
Consultation
-
Date/Time Consultation Requested: 06/28/2024
Date/Time Consultation Performed: 06/28/2024
Requesting Provider: Dr. Royal
Performing Provider: Dr. Mcgee
Reason for Consultation: Anemia
Medical History
Chief Complaint / HPI
Chief Complaint: Anemia without any overt bleeding
History of Present Illness:
69-year-old male with history of chronic anemia, history of duodenal ulcers on previous multiple endoscopies presenting with complaints of weakness and after coming back from work yesterday felt very fatigued and was in the bathroom and had to lie
down and could not get off the floor . In the ER he was noted to have acidosis, acute on chronic renal insufficiency, hyponatremia, hemoglobin of 5.5 with baseline anemia since 2014. As per patient, he did not have any GI complaints. No abdominal
pain, nausea or vomiting. No heartburn or trouble swallowing. Bowel pattern he reports is 1 formed stool a day, no pushing or straining. No blood or black stool. No loss of appetite or unintentional weight loss. No NSAID use.
He does report that he drinks alcohol daily, up to 4-5 drinks a day. Usually vodka with soda. His blood alcohol level was 144 in the emergency room. He did have a brown bowel movement today.
He was admitted in February 2020 for with dark stool, upper endoscopy at that time with Dr. Willis showing 4 clean-based duodenal ulcers without any evidence of bleeding. Biopsies taken from the stomach shows chronic active gastritis without H.
pylori and esophageal biopsies were unremarkable.
Last colonoscopy [address] Valdez with fair prep with limited view small polyps, diverticulosis, hemorrhoids. EGD 2019 Dr. Valdez with gastritis non bleeding duodenal ulcers with no stigmata of bleeding.
Past Medical History
Past Medical History: Other (HTN, NIDDM, Renal Failure (CKD), Seizures (with hx brain infection) and Other (peptic ulcer disease, B12 deficiency ))
Social History
Tobacco: Non-Smoker
Alcohol: Daily
Family History
Family History: Reviewed & Not Pertinent
Allergies / Home Medications
Allergy/AdvReac Type Severity Reaction Status Date / Time
No Known Allergies Allergy Verified 06/28/24 00:09
�Medication �Instructions �Recorded
glipizide 2.5 mg tablet 2.5 mg PO DAILY #30 tabs 12/22/23
nifedipine 30 mg tablet,extended 30 mg PO BID Blood pressure #60 12/22/23
release tabs
levetiracetam 1,000 mg tablet 1,500 mg PO Q12H 06/28/24
(Keppra)
Review of Systems
-
All other systems: A 12 pt ROS was Negative except as stated above in HPI
Vital Signs
Temp Pulse Resp BP Pulse Ox
98.7 F 101 17 161/92 99
06/28/24 11:27 06/28/24 13:00 06/28/24 13:00 06/28/24 12:00 06/28/24 13:00
Physical Exam
Exam
Respiratory: Clear
Cardiac: S1/S2 and Regular Rhythm
GI: Soft, Non Tender and Non Distended
Neuro: AO x 3
Results
WBC Cancelled 06/28/24 04:38
Hgb 7.3 g/dL (13.0-18.0) L D 06/28/24 08:13
Hct 21.1 % (39.0-52.0) L 06/28/24 08:13
MCV Cancelled 06/28/24 04:38
Plt Count Cancelled 06/28/24 04:38
Absolute Neuts (auto) 9.3 10^3/uL (1.4-6.5) H 06/28/24 00:17
PT 13.6 Sec (11.4-14.6) 06/28/24 01:28
INR 1.01 06/28/24 01:28
APTT 27.8 Sec (23.4-35.0) 06/28/24 04:38
Sodium 131 mmol/L (135-145) L 06/28/24 04:38
Potassium 4.9 mmol/L (3.5-5.1) 06/28/24 04:38
Chloride 105 mmol/L (98-107) 06/28/24 04:38
Carbon Dioxide 8 mmol/L (22-30) L* 06/28/24 04:38
BUN 68 mg/dl (9-20) H 06/28/24 04:38
Creatinine 4.3 mg/dL (0.7-1.3) H* 06/28/24 04:38
Calcium 8.5 mg/dl (8.4-10.2) 06/28/24 04:38
Total Bilirubin 0.3 mg/dl (0.2-1.3) 06/28/24 00:17
AST 25 U/L (17-59) 06/28/24 00:17
ALT 18 U/L (0-50) 06/28/24 00:17
Alkaline Phosphatase 68 U/L (38-126) 06/28/24 00:17
Diagnostic Image Results:
Prior GI Procedures:
EGD:
Colonoscopy:
Assessment / Plan
-
Pt is a 69yo with hx NIDDM, CKD, brain infection/seizure disorder, PUD with onset of weakness and anemia with a hemoglobin of 5.5, down from 9.4 in January 2024. He was noted with abnormal labs including acute on chronic renal insufficiency,
metabolic acidosis, hyponatremia, endoscopy in February 2024 without any evidence of varices but clean-based duodenal ulcers noted without any bleeding, last colonoscopy [address] Valdez with fair prep with limited view small polyps,
diverticulosis, hemorrhoids. EGD 2019 Dr. Valdez with gastritis non bleeding duodenal ulcers with no stigmata of bleeding. He admits to occasional NSAID use but not on a regular basis.
-h/o previous iron deficiency anemia
-SHAYY on CKD
-hyponatremia
-metabolic acidosis
-hx duodenal ulcers in 2020
-ETOH use
-thrombocytosis
other med problems:
-NIDDM
-brain infection with hx seizures
-b12 deficiency
PLAN:
Etiology of anemia with iron deficiency related to ulcer disease with daily ETOH use vs multifactoral with hx CKD, low B12
Once acidosis is corrected, will do possibly EGD , in AM if electrolytes improved - NPO for AM. If sodium is still low and CO2 low, will need to hold off on endoscopy.
Okay for clear liquid diet without reds
Monitor H&H and transfuse as needed
Continue ppi gtt
consider IV iron prior to discharge
Will give a dose of vitamin B12 as well
Alcohol abuse with elevated blood alcohol level
Continue thiamine and folic acid
will follow
-
-
Thank you for consultation and allowing me to participate in the patient's care. Please call the sr risk management consultant GI physician during the after hours with any questions or concerns.
[2024-06-28] MEDS: CYANOCOBALAMIN 1000 MCG IM (15:58)
--- NOTE | 2024-06-28 16:11 | CM ---
guest experience manager reviewed patient's chart and met with patient and patient lives alone in a 2 story home, patient is independent with adl's and ambulation, no dme, patient drives, family caseworker was consulted to offer patient treatment options or
supports for alcohol use however patient has declined services.
PCP: Dr Herminio Carlin
Pharmacy: [facility] in [place]
Plan; Home no needs when stable.
--- NOTE | 2024-06-28 16:49 | PTCARENOTE ---
Addendum entered by Claire Starks RN 06/28/24 18:42:
Further orders received from Dr. Royal- see MAR.
Addendum entered by Claire Starks RN 06/28/24 17:11:
Elevated SBP's into 160-170's; Dr. Royal made aware; no orders @ this time.
Original Note:
Pt. assisted x 1 into BR for cont lg marti BM then assisted into chair @ approx 1130. Pt. remains OOB to chair @ this time; tolerating activity and position. Diet advanced per GI; pt tolerating clear liq. No s/s of active bleeding. Bicarb gtt
increased per nephro- see MAR. Chair alarm active. Call scott in reach.
[2024-06-28 17:53] LABS: Hematocrit 22.4 % (39.0-52.0); Hemoglobin 7.8 g/dL (13.0-18.0); Mean Corp Hgb Conc. 34.8 g/dL (33.0-37.0); Mean Corpuscular Hgb 32.6 pg (27.0-31.0); Mean Corpuscular Volume 93.7 fL (80.0-94.0); Mean Platelet Volume 8.7 fL (7.4-10.4); Platelet Count 212 10^3/uL (130-400); Red Blood Cell Count 2.39 10^6/uL (4.70-6.10); White Blood Cell Count 7.7 10^3/uL (4.8-10.8)
[2024-06-28 18:10] LABS: Blood Urea Nitrogen 65 mg/dl (9-20); Calcium 8.9 mg/dl (8.4-10.2); Carbon Dioxide 15 mmol/L (22-30); Chloride 100 mmol/L (98-107); Estimated Creatinine Clearance 18 ml/min; Glucose 214 mg/dl (70-99); Iron 142 ug/dl (49-181); Potassium 4.1 mmol/L (3.5-5.1); Sodium 129 mmol/L (135-145); eGFR 16.11
[2024-06-28 18:19] LABS: Percent Saturation 52 % (20-50); Total Iron Binding Capacity 272 ug/dl (261-462)
[2024-06-28] MEDS: APRESOLINE 5 MG IV (18:40)
--- NOTE | 2024-06-28 19:04 | PTCARENOTE ---
Assumed care of pt. approx 1899.
resting in bed, plan of care explained to pt, no further questions at this time.
Focally intact, normocephalic.
NSR w.o ectopy. HTN, normotensive.
Producing adequate urine OP.
No bloody BM for day team.
[2024-06-28] MEDS: ATIVAN 1 MG IV (20:27)
[2024-06-29] VITALS (14 sets, daily range): BP systolic 144–196; BP diastolic 82–106; BMI 25.8
[2024-06-29] MEDS: THIAMINE INJECTION 200 MG IV ×4 (00:42→23:25)
[2024-06-29] MEDS: APRESOLINE 5 MG IV ×2 (05:09→20:55)
[2024-06-29] MEDS: KEPPRA 1500 MG PO ×2 (05:09→17:29)
[2024-06-29] MEDS: SODIUM BICARBONATE 1150 MEQ IV (05:10)
[2024-06-29 05:42] LABS: Hemoglobin 7.6 g/dL (13.0-18.0); Mean Corp Hgb Conc. 36.9 g/dL (33.0-37.0); Mean Corpuscular Hgb 33.5 pg (27.0-31.0); Mean Corpuscular Volume 90.7 fL (80.0-94.0); Platelet Count 198 10^3/uL (130-400); Red Blood Cell Count 2.27 10^6/uL (4.70-6.10); Red Cell Dist. Width 15.5 % (11.5-14.5); White Blood Cell Count 6.7 10^3/uL (4.8-10.8)
[2024-06-29 05:43] LABS: Hematocrit 21.1 % (39.0-52.0)
[2024-06-29 06:14] LABS: Blood Urea Nitrogen 62 mg/dl (9-20); Calcium 8.4 mg/dl (8.4-10.2); Carbon Dioxide 19 mmol/L (22-30); Chloride 102 mmol/L (98-107); Estimated Creatinine Clearance 19 ml/min; Glucose 166 mg/dl (70-99); Potassium 4.6 mmol/L (3.5-5.1); Sodium 130 mmol/L (135-145); eGFR 17.16
[2024-06-29] MEDS: PROTONIX IV 40 MG IV ×2 (08:04→20:56)
[2024-06-29] MEDS: PROCARDIA XL (EXTENDED RELEASE) 30 MG PO (08:04)
[2024-06-29] MEDS: FOLVITE 1 MG PO (08:04)
[2024-06-29] MEDS: NSS (PRESERVATIVE FREE) 10 ML IV ×2 (08:05→20:56)
--- NOTE | 2024-06-29 08:15 | PTCARENOTE ---
Assumed care of pt at 0715 following shift report. Pt awake and resting quietly in bed watching TV. Denies c/o pain or SOB. Remains on RA w/Pox 99%. Physical assessment completed as documented. MSAS=3. Pt assisted in ordering CL breakfast. Assisted
w/ hygiene and comfort care provided. Bed exit alarm in use. Call scott w/in pt reach and safe environment maintained.
[2024-06-29] MEDS: NOVOLOG FLEXPEN-MODERATE RESISTANCE 1 UNITS SC (09:16)
[2024-06-29 09:28] LABS: Glucose - Point of Care 186 mg/dl (70-99)
--- NOTE | 2024-06-29 10:10 | W.PN.NEPH.PH ---
Today's Communication / Plan
-
see plan
Assessment/Plan
-
Assessment
SHAYY
CKD4 baseline cr in low 3 range, saw Dr Sher in Feb 2024 and lost f/u
Metabolic acidosis
Hyperkalemia
Hypertension
Acute anemia hemoglobin 5.5
Likely upper GI bleed
Diabetes mellitus type 2
Seizure disorder.
Alcohol abuse
Plan
SHAYY-prerenal suspect related to severe anemia
check U PCR, cr improving however underlying advanced CKD4 from DM, HTN ,old NSAIDs use
high risk of further progression in near future and requiring dialysis , lost f/u with Dr Sher
sig met acidosis -not complaint with meds or f/u. now that it is improving switch to 1/2ns with bicarb
will also start po bicarb should cont at d/c too
no emergent indication of [employer], remains non oliguric
hyponatremia-dilutional, TSH normal , need FR 48ounces/day
occult positive stool in the ED. Status post endoscopy no active bleeding ulcer January 2024. denies NSAIDs Use [employer]
hb stable, adequate fe stores, normal folate, low normal b12
likely need heme eval out pt, will also give dose of DANYELLE and cont prn transfusion
EGD timing per GI, cr will likely not improve below 3 baseline
BPs are high, will increase procardia to 60mg biD
Keppra dose needs to be adjusted for renal function?
high risk encounter
d/w pt in detail, d/w primary and nursing
-
-
Date of Service: June 29, 2024
CC / HPI / ROS
-
Chief Complaint:
SHAYY, CKD
History of Present Illness:
cr improving to .7, non oliguric
BP up, hb stable 7.6
no fever, met acidosis better bicarb 19
Review of Systems:
no cp or sob
tolerating clear liquids
Labs
-
Labs:
WBC 6.7 10^3/uL (4.8-10.8) 06/29/24 04:49
RBC 2.27 10^6/uL (4.70-6.10) L 06/29/24 04:49
Hgb 7.6 g/dL (13.0-18.0) L 06/29/24 04:49
Hct 21.1 % (39.0-52.0) L 06/29/24 04:49
Plt Count 198 10^3/uL (130-400) 06/29/24 04:49
Sodium 130 mmol/L (135-145) L 06/29/24 04:49
Potassium 4.6 mmol/L (3.5-5.1) 06/29/24 04:49
Chloride 102 mmol/L (98-107) 06/29/24 04:49
Carbon Dioxide 19 mmol/L (22-30) L 06/29/24 04:49
BUN 62 mg/dl (9-20) H 06/29/24 04:49
Creatinine 3.7 mg/dL (0.7-1.3) H 06/29/24 04:49
eGFR 17.16 06/29/24 04:49
Glucose 166 mg/dl (70-99) H 06/29/24 04:49
Calcium 8.4 mg/dl (8.4-10.2) 06/29/24 04:49
Phosphorus 4.5 mg/dl (2.5-4.5) 06/28/24 04:38
Albumin 4.3 g/dl (3.5-5.0) 06/28/24 00:17
Physical Exam
-
Vital Signs:
Vital Signs
Temp Pulse Resp BP Pulse Ox
98.2 F 91 17 176/92 99
06/29/24 07:57 06/29/24 08:04 06/29/24 06:00 06/29/24 08:04 06/28/24 19:11
Cardiovascular:: Regular rate and rhythm
Respiratory:: Bilateral: CTA
Lung Excursion:: Normal
Abdomen:: Nontender and Soft
Extremity Edema:: +1: Bilateral:
Whitehead Catheter: No
--- NOTE | 2024-06-29 10:56 | W.PN.GI.CBS2 ---
Today's Communication / Plan
-
PLAN:
Etiology of anemia with iron deficiency related to ulcer disease with daily ETOH use vs multifactoral with hx CKD, low B12
Once acidosis is corrected, will do possibly EGD , discussed with anesthesia, sodium still 130, ideally more than 130 is better.
Discussed with hospitalist team, nephrology aware as well.
Okay to advance to full liquid diet and plan for EGD tomorrow if sodium is more than 130.
onitor H&H and transfuse as needed
PPI 40 mg IV twice daily for now
consider IV iron prior to discharge
Will give a dose of vitamin B12 as well
Alcohol abuse with elevated blood alcohol level
Continue thiamine and folic acid
will follow
Assessment / Plan
-
Pt is a 69yo with hx NIDDM, CKD, brain infection/seizure disorder, PUD with onset of weakness and anemia with a hemoglobin of 5.5, down from 9.4 in January 2024. He was noted with abnormal labs including acute on chronic renal insufficiency,
metabolic acidosis, hyponatremia, endoscopy in February 2024 without any evidence of varices but clean-based duodenal ulcers noted without any bleeding, last colonoscopy [address] Valdez with fair prep with limited view small polyps,
diverticulosis, hemorrhoids. EGD 2019 Dr. Valdez with gastritis non bleeding duodenal ulcers with no stigmata of bleeding. He admits to occasional NSAID use but not on a regular basis.
-h/o previous iron deficiency anemia
-SHAYY on CKD
-hyponatremia
-metabolic acidosis
-hx duodenal ulcers in 2020
-ETOH use
-thrombocytosis
other med problems:
-NIDDM
-brain infection with hx seizures
-b12 deficiency
PLAN:
Etiology of anemia with iron deficiency related to ulcer disease with daily ETOH use vs multifactoral with hx CKD, low B12
Once acidosis is corrected, will do possibly EGD , discussed with anesthesia, sodium still 130, ideally more than 130 is better.
Discussed with hospitalist team, nephrology aware as well.
Okay to advance to full liquid diet and plan for EGD tomorrow if sodium is more than 130.
onitor H&H and transfuse as needed
PPI 40 mg IV twice daily for now
consider IV iron prior to discharge
Will give a dose of vitamin B12 as well
Alcohol abuse with elevated blood alcohol level
Continue thiamine and folic acid
will follow
Subjective
Subjective
Date of Service: June 29, 2024
Patient denies any complaints. No abdominal pain, nausea or vomiting. Tolerating clears. Brown stool yesterday as per patient
Objective
Data Reviewed
Laboratory Data:
Laboratory Results
06/29/24 04:49
06/29/24 04:49
Laboratory Results
PT 13.6 Sec (11.4-14.6) 06/28/24 01:28
INR 1.01 06/28/24 01:28
APTT 27.8 Sec (23.4-35.0) 06/28/24 04:38
Phosphorus 4.5 mg/dl (2.5-4.5) 06/28/24 04:38
Magnesium 1.6 mg/dl (1.6-2.3) 06/28/24 04:38
Total Bilirubin 0.3 mg/dl (0.2-1.3) 06/28/24 00:17
AST 25 U/L (17-59) 06/28/24 00:17
ALT 18 U/L (0-50) 06/28/24 00:17
Alkaline Phosphatase 68 U/L (38-126) 06/28/24 00:17
Vital Signs and I&O:
Vital Signs
Temp Pulse Resp BP Pulse Ox
98.2 F 91 17 176/92 99
06/29/24 07:57 06/29/24 08:04 06/29/24 06:00 06/29/24 08:04 06/28/24 19:11
I&O
06/28/24 06/29/24 06/30/24
06:59 06:59 06:59
Intake Total 1120 / 1120 1500 / 1500
Output Total 200 / 200 1950 / 1950
Balance 920 / 920 -450 / -450
Physical Exam
Physical Exam
GI: Soft, Non Distended and Non Tender
--- NOTE | 2024-06-29 11:00 | PTCARENOTE ---
Pt assisted OOB to chair using wheeled walker. Tolerated increased activity w/o complication. Call tyler w/in pt reach. No change from previous assessment findings
[2024-06-29] MEDS: SODIUM BICARBONATE 1075 MEQ IV (12:18)
[2024-06-29] MEDS: RETACRIT 10000 UNITS SC (12:20)
[2024-06-29] MEDS: NOVOLOG FLEXPEN-MODERATE RESISTANCE 3 UNITS SC ×2 (12:26→17:20)
[2024-06-29 12:27] LABS: Glucose - Point of Care 239 mg/dl (70-99)
--- NOTE | 2024-06-29 13:00 | PTCARENOTE ---
Pt assisted OOB to chair using wheeled walker. Tolerated increased activity w/o complication. Call scott w/in pt reach. No change from previous assessment findings.
[2024-06-29] MEDS: FERRLECIT 110 MG IV (14:56)
--- NOTE | 2024-06-29 16:03 | PTCARENOTE ---
Pt remains OOB in chair. No new complaints or changes noted.
--- NOTE | 2024-06-29 17:10 | W.PN.HOSP.TC ---
Today's Communication/Plan
-
downgrade to floors
EGD in AM
Assessment / Plan
Assessment / Plan
Assessment:
Severe Symptomatic Anemia
Acute blood loss anemia on chronic anemia of CKD
GERD/Duodenal Ulcers
- s/p 2 units PRBC
- DANYELLE to be given
- GI following; EGD likely in 24 hours
- continue IV PPI
- OP Hematology evaluation
pre-renal SHAYY on CKD 4
acute Anion Gap Metabolic Acidosis / Lactic Acidosis
- Similar to prior admission - though at that time was attributed to NSAID use.
- No reported issues with urine output. Bladder scan protocol and straight cath if needed.
- IVFs with supplemental bicarb. PO Bicarb.
- Nephrology following
Hyponatremia
- fluid restriction
DM-II
- Uncontrolled. On PO glipizide only. Does not monitor glucose at home.
- Doubt DKA as acidosis seems primarily due to lactic acid.
- IVFs / volume with blood / bicarb as noted above.
- Follow glucose and cover with SSI for now.
- Begin basal dosing if needed. Hold glipizide for now.
- A1C 6.8%
Benign Hypertension
- BP elevated in the ED despite lactic acidosis / anemia / etc.
- Continue nifedipine BID and adjust regimen as needed for improved BP control.
- May ultimately benefit from diuresis once acidosis improved given noted edema.
Remote Seizure Disorder
- Prior seizure reportedly due to 'brain infection'.
- No seizure activity since 2014.
- Continue Keppra - will need to discuss with outpatient Neurologist about dosing adjustments for renal function
Alcohol Use Disorder
- Patient admits to daily EtOH intake.
- Likely contributing to multiple issues including duodenal ulcers, GI blood loss, acidosis, etc.
- MSAS protocol and BZDs PRN for symptoms of withdrawal.
- Thiamine / folate / MVI replacement.
LUE Edema
- Asymmetric edema of the LUE. US negative.
DVT Prophylaxis: SCDs for now given significant edema / suspected GI source of bleeding.
Code Status: Full
Anticipated Discharge: > 48 hours
Subjective/Interval History
-
Date of Service: June 29, 2024
no complaints
Objective Data
-
Labs:
Laboratory Results
06/29/24
04:49
WBC 6.7
Hgb 7.6 L
Hct 21.1 L
Plt Count 198
Sodium 130 L
Potassium 4.6
Chloride 102
Carbon Dioxide 19 L
BUN 62 H
Creatinine 3.7 H
Glucose 166 H
Calcium 8.4
Vital Signs:
Vital Signs
Temp Pulse Resp BP Pulse Ox
98.3 F 93 19 157/82 96
06/29/24 15:09 06/29/24 16:00 06/29/24 16:00 06/29/24 14:00 06/29/24 09:00
I&O
06/28/24 06/29/24 06/30/24
06:59 06:59 06:59
Intake Total 1120 / 1120 1500 / 1500 1790 / 1790
Output Total 200 / 200 1950 / 1950 825 / 825
Balance 920 / 920 -450 / -450 965 / 965
Physical Exam
-
General: No Apparent Distress
HEENT: Normocephalic and Atraumatic
Respiratory: Negative Wheezes
Cardiac: Regular Rhythm and S1/S2
GI: Soft
Genito-urinary: No Costovertebral Tender
Neuro: AO x 3
Hematologic / Lymphatic: No Lymphadenopathy
Psych: Calm
Data Reviewed
-
Total Time Spent with Patient (in minutes): 42
Labs: Labs Reviewed by me
[2024-06-29 17:30] LABS: Glucose - Point of Care 223 mg/dl (70-99)
[2024-06-29] MEDS: PROCARDIA XL (EXTENDED RELEASE) 60 MG PO (20:55)
[2024-06-29] MEDS: MELATONIN 10 MG PO (20:55)
[2024-06-29 21:46] LABS: Glucose - Point of Care 295 mg/dl (70-99)
--- NOTE | 2024-06-29 23:37 | PTCARENOTE ---
Pt arrived from the ICU via wheelchair. Patient ambulated into the room with a rolling walker. Transported with all belongings. AAOx3, no complaints of pain. VSS. Patient oriented to the room. Call scott is within reach.
[2024-06-30] VITALS (10 sets, daily range): BP systolic 13–190; BP diastolic 62–108
[2024-06-30] MEDS: KEPPRA 1500 MG PO (05:09)
[2024-06-30 06:34] LABS: Glucose - Point of Care 234 mg/dl (70-99)
[2024-06-30] MEDS: NOVOLOG FLEXPEN-MODERATE RESISTANCE 3 UNITS SC ×3 (06:36→17:25)
[2024-06-30 06:51] LABS: Hematocrit 23.6 % (39.0-52.0); Hemoglobin 8.2 g/dL (13.0-18.0); Mean Corp Hgb Conc. 34.7 g/dL (33.0-37.0); Mean Corpuscular Hgb 33.1 pg (27.0-31.0); Mean Corpuscular Volume 95.2 fL (80.0-94.0); Mean Platelet Volume 8.8 fL (7.4-10.4); Platelet Count 180 10^3/uL (130-400); Red Blood Cell Count 2.48 10^6/uL (4.70-6.10); Red Cell Dist. Width 16.1 % (11.5-14.5); White Blood Cell Count 5.6 10^3/uL (4.8-10.8)
[2024-06-30 07:11] LABS: Blood Urea Nitrogen 50 mg/dl (9-20); Carbon Dioxide 27 mmol/L (22-30); Chloride 100 mmol/L (98-107); Estimated Creatinine Clearance 19 ml/min; Glucose 222 mg/dl (70-99); Potassium 4.1 mmol/L (3.5-5.1); Sodium 134 mmol/L (135-145); eGFR 17.16
--- NOTE | 2024-06-30 08:48 | W.PN.HOSP.TC ---
Today's Communication/Plan
-
EGD today
follow GI recs
follow renal recs
Assessment / Plan
Assessment / Plan
Assessment:
Severe Symptomatic Anemia
Acute blood loss anemia on chronic anemia of CKD
GERD/Duodenal Ulcers
- s/p 2 units PRBCs
- s/p DANYELLE
- GI following; EGD today
- continue IV PPI
- OP Hematology evaluation
pre-renal SHAYY on CKD 4
acute Anion Gap Metabolic Acidosis / Lactic Acidosis
- Similar to prior admission - though at that time was attributed to NSAID use.
- No reported issues with urine output. Bladder scan protocol and straight cath if needed.
- continue PO Bicarb.
- Nephrology following
Hyponatremia
- fluid restriction; Na 134
DM-II
- Uncontrolled. On PO glipizide only. Does not monitor glucose at home.
- Doubt DKA as acidosis seems primarily due to lactic acid.
- IVFs/volume with blood/bicarb as noted above.
- Follow glucose and cover with SSI for now.
- Begin basal dosing if needed. Hold glipizide for now.
- A1C 6.8%
Benign Hypertension
- BP elevated in the ED despite lactic acidosis / anemia / etc.
- Continue nifedipine BID and adjust regimen as needed for improved BP control.
- May ultimately benefit from diuresis once acidosis improved given noted edema.
Remote Seizure Disorder
- Prior seizure reportedly due to 'brain infection'.
- No seizure activity since 2014.
- Continue Keppra - will need to discuss with outpatient Neurologist about dosing adjustments for renal function
Alcohol Use Disorder
- Patient admits to daily EtOH intake.
- Likely contributing to multiple issues including duodenal ulcers, GI blood loss, acidosis, etc.
- MSAS protocol and BZDs PRN for symptoms of withdrawal.
- Thiamine/folate/MVI replacement.
LUE Edema
- Asymmetric edema of the LUE. US negative.
DVT Prophylaxis: SCDs for now given significant edema/suspected GI source of bleeding.
Code Status: Full
Anticipated Discharge: Within 24 hours
Subjective/Interval History
-
Date of Service: June 30, 2024
resting comfortably, no complaints
Objective Data
-
Labs:
Laboratory Results
06/30/24
06:35
WBC 5.6
Hgb 8.2 L
Hct 23.6 L
Plt Count 180
Sodium 134 L
Potassium 4.1
Chloride 100
Carbon Dioxide 27
BUN 50 H
Creatinine 3.7 H
Glucose 222 H
Calcium 8.0 L
Vital Signs:
Vital Signs
Temp Pulse Resp BP Pulse Ox
98.2 F 98 18 162/62 97
06/30/24 07:35 06/30/24 07:35 06/30/24 07:35 06/30/24 07:35 06/30/24 07:35
I&O
06/29/24 06/30/24 07/01/24
06:59 06:59 06:59
Intake Total 1500 / 1500 2210 / 2210
Output Total 1949 / 1949
Balance -450 / -450 260 / 260
Physical Exam
-
General: No Apparent Distress
HEENT: Normocephalic and Atraumatic
Respiratory: Negative Wheezes
Cardiac: Regular Rhythm and S1/S2
GI: Soft and Nontender
Genito-urinary: No Costovertebral Tender
Neuro: AO x 3
Hematologic / Lymphatic: No Lymphadenopathy
Psych: Calm
Data Reviewed
-
Total Time Spent with Patient (in minutes): 42
Labs: Labs Reviewed by me
[2024-06-30] MEDS: THIAMINE INJECTION 200 MG IV ×2 (09:21→15:33)
[2024-06-30] MEDS: PROCARDIA XL (EXTENDED RELEASE) 60 MG PO ×2 (09:21→20:24)
[2024-06-30] MEDS: PROTONIX IV 40 MG IV ×2 (09:22→20:24)
[2024-06-30] MEDS: FOLVITE 1 MG PO (09:22)
[2024-06-30] MEDS: NSS (PRESERVATIVE FREE) 10 ML IV ×2 (09:22→20:24)
[2024-06-30 11:45] LABS: Glucose - Point of Care 246 mg/dl (70-99)
[2024-06-30 13:01] LABS: Glucose - Point of Care 196 mg/dl (70-99)
--- NOTE | 2024-06-30 14:45 | CM ---
Chart reviewed and plan is for patient to return to home when stable.
Plan; Home when stable.
[2024-06-30] MEDS: ATIVAN 1 MG PO ×2 (15:01→20:25)
[2024-06-30] MEDS: FERRLECIT 110 MG IV (15:34)
[2024-06-30] MEDS: GAVILAX 238 GM PO (15:47)
[2024-06-30 16:42] LABS: Glucose - Point of Care 233 mg/dl (70-99)
--- NOTE | 2024-06-30 17:29 | W.PN.NEPH.PH ---
Today's Communication / Plan
-
see plan
Assessment/Plan
-
Assessment
SHAYY
CKD4 baseline cr in low 3 range, saw Dr Sher in Feb 2024 and lost f/u
Metabolic acidosis
Hyperkalemia
Hypertension
Acute anemia hemoglobin 5.5
Likely upper GI bleed
Diabetes mellitus type 2
Seizure disorder.
Alcohol abuse
Plan
SHAYY-prerenal suspect related to severe anemia
check U PCR-not done yet, cr stable 3.7
underlying advanced CKD4 from DM, HTN ,old NSAIDs use
high risk of further progression in near future and requiring dialysis , lost f/u with Dr Sher
sig met acidosis-improved with IVF
no emergent indication of QUALITY CONTROL CLERK, remains non oliguric
hyponatremia-dilutional, TSH normal , cont FR 48ounces/day
s/p EGD today, no active bleeding, G ulcer and erosion noted, biopsied. for C scope tomorrow
hb stable, adequate fe stores, normal folate, low normal b12, s/p10k DANYELLE on 06/29
IV Fe course per primary
BPs are high, increases procardia to 60mg biD 06/29
add labetalol since he is tachy too
Keppra dose needs to be adjusted for renal function-dose lowered
high risk encounter
d/w pt in detail
-
-
Date of Service: June 30, 2024
CC / HPI / ROS
-
Chief Complaint:
SHAYY, CKD
History of Present Illness:
cr no change at 3.7, non oliguric
BP up, hb better at 8.2
no fever, met acidosis better bicarb 27
sodium better at 134
Review of Systems:
no cp or sob
Labs
-
Labs:
WBC 5.6 10^3/uL (4.8-10.8) 06/30/24 06:35
RBC 2.48 10^6/uL (4.70-6.10) L 06/30/24 06:35
Hgb 8.2 g/dL (13.0-18.0) L 06/30/24 06:35
Hct 23.6 % (39.0-52.0) L 06/30/24 06:35
Plt Count 180 10^3/uL (130-400) 06/30/24 06:35
Sodium 134 mmol/L (135-145) L 06/30/24 06:35
Potassium 4.1 mmol/L (3.5-5.1) 06/30/24 06:35
Chloride 100 mmol/L (98-107) 06/30/24 06:35
Carbon Dioxide 27 mmol/L (22-30) 06/30/24 06:35
BUN 50 mg/dl (9-20) H 06/30/24 06:35
Creatinine 3.7 mg/dL (0.7-1.3) H 06/30/24 06:35
eGFR 17.16 06/30/24 06:35
Glucose 222 mg/dl (70-99) H 06/30/24 06:35
Calcium 8.0 mg/dl (8.4-10.2) L 06/30/24 06:35
Phosphorus 4.5 mg/dl (2.5-4.5) 06/28/24 04:38
Albumin 4.3 g/dl (3.5-5.0) 06/28/24 00:17
Physical Exam
-
Vital Signs:
Vital Signs
Temp Pulse Resp BP Pulse Ox
98.3 F 93 18 170/93 98
06/30/24 15:56 06/30/24 15:56 06/30/24 15:56 06/30/24 15:56 06/30/24 15:56
Cardiovascular:: Regular rate and rhythm
Respiratory:: Bilateral: CTA
Lung Excursion:: Normal
Abdomen:: Nontender and Soft
Extremity Edema:: +1: Bilateral:
Whitehead Catheter: No
--- NOTE | 2024-06-30 17:50 | PTCARENOTE ---
Patient went for endoscopy today. For Colonoscopy tomorrow. Patient drank 2 Liters of go-lytely with adequate results. Patient moving bowels - soft/loose brown. Patient to have additional 2 Liters of go-lytely at 0500 tomorrow morning. Patient NPO
after midnight. Currently tolerating clears.
[2024-06-30] MEDS: KEPPRA 1000 MG PO (20:24)
[2024-06-30] MEDS: TRANDATE 100 MG PO (20:24)
[2024-07-01] VITALS (11 sets, daily range): BP systolic 16–159; BP diastolic 66–97
[2024-07-01] MEDS: THIAMINE INJECTION 200 MG IV (00:44)
[2024-07-01 01:11] LABS: Protein/creatinine Ratio 13.4; Urine Protein 364 mg/dl
[2024-07-01] MEDS: GAVILAX 125 GM PO (05:28)
[2024-07-01 07:23] LABS: Hematocrit 24.4 % (39.0-52.0); Hemoglobin 8.3 g/dL (13.0-18.0); Mean Corpuscular Hgb 32.9 pg (27.0-31.0); Mean Corpuscular Volume 96.8 fL (80.0-94.0); Mean Platelet Volume 9.1 fL (7.4-10.4); Platelet Count 171 10^3/uL (130-400); Red Blood Cell Count 2.52 10^6/uL (4.70-6.10); Red Cell Dist. Width 15.9 % (11.5-14.5); White Blood Cell Count 7.8 10^3/uL (4.8-10.8)
[2024-07-01] MEDS: NOVOLOG FLEXPEN-MODERATE RESISTANCE 1 UNITS SC (07:40)
[2024-07-01 07:53] LABS: Blood Urea Nitrogen 42 mg/dl (9-20); Carbon Dioxide 22 mmol/L (22-30); Chloride 101 mmol/L (98-107); Estimated Creatinine Clearance 19 ml/min; Glucose 163 mg/dl (70-99); Potassium 4.3 mmol/L (3.5-5.1); Sodium 134 mmol/L (135-145); eGFR 17.16
[2024-07-01 09:24] LABS: Glucose - Point of Care 180 mg/dl (70-99)
[2024-07-01] MEDS: PROTONIX IV 40 MG IV ×2 (09:48→20:35)
[2024-07-01] MEDS: NSS (PRESERVATIVE FREE) 10 ML IV ×2 (09:48→20:34)
[2024-07-01] MEDS: VITAMIN B1 100 MG PO ×2 (09:49→20:34)
[2024-07-01] MEDS: PROCARDIA XL (EXTENDED RELEASE) 60 MG PO ×2 (09:49→20:34)
[2024-07-01] MEDS: TRANDATE 100 MG PO ×2 (09:49→20:34)
[2024-07-01] MEDS: KEPPRA 1000 MG PO ×2 (09:49→20:34)
[2024-07-01] MEDS: FOLVITE 1 MG PO (09:49)
--- NOTE | 2024-07-01 11:15 | W.PN.HOSP.TC ---
Today's Communication/Plan
-
continue reduced dose Keppra
Colonoscopy today
Assessment / Plan
Assessment / Plan
Assessment:
Severe Symptomatic Anemia
Acute blood loss anemia on chronic anemia of CKD
GERD/Duodenal Ulcers
- s/p 2 units PRBCs
- s/p DANYELLE
- GI following
- EGD 06/30: Multiple diminutive plaques were found in the upper third of the esophagus. Biopsies were taken with a cold forceps for histology. A medium-sized hiatal hernia was present. Patchy mildly erythematous mucosa without bleeding was found in
the entire examined stomach. Biopsies were taken with a cold forceps for histology. A single localized erosion with no bleeding and no stigmata of recent bleeding was found in the gastric fundus. One non-bleeding superficial duodenal ulcer with a
clean ulcer base (Zeeshan Class III) was found in the second portion of the duodenum. The lesion was 4 mm in largest dimension. Diffuse nodular mucosa was found in the second portion of the duodenum; also some edema at the sweep but no additional
ulcers seen. Biopsies for histology were taken with a cold forceps for evaluation of celiac disease.
- Colonoscopy: pending
- continue IV PPI
- continue IV Iron
- OP Hematology evaluation
pre-renal SHAYY on CKD 4
acute Anion Gap Metabolic Acidosis / Lactic Acidosis
- Similar to prior admission - though at that time was attributed to NSAID use.
- No reported issues with urine output. Bladder scan protocol and straight cath if needed.
- continue PO Bicarb.
- Nephrology following
Hyponatremia
- fluid restriction; Na 134
DM-II
- Uncontrolled. On PO glipizide only. Does not monitor glucose at home.
- Doubt DKA as acidosis seems primarily due to lactic acid.
- Follow glucose and cover with SSI for now.
- Begin basal dosing if needed. Hold glipizide for now.
- A1C 6.8%
Benign Hypertension
- continue nifedipine and Labetalol per Renal
Remote Seizure Disorder
- Prior seizure reportedly due to 'brain infection'.
- No seizure activity since 2014.
- Continue Keppra; decreased to 1g BID for now - f/u PCP in 1-2 weeks for consideration of further adjustments
Alcohol Use Disorder
- Patient admits to daily EtOH intake.
- Likely contributing to multiple issues including duodenal ulcers, GI blood loss, acidosis, etc.
- MSAS protocol and BZDs PRN for symptoms of withdrawal.
- Thiamine/folate/MVI replacement.
LUE Edema
- Asymmetric edema of the LUE. US negative.
DVT Prophylaxis: SCDs for now given significant edema/suspected GI source of bleeding.
Code Status: Full
Anticipated Discharge: 24 - 48 hours
Subjective/Interval History
-
Date of Service: July 01, 2024
no complaints
for Colonoscopy today
Objective Data
-
Labs:
Laboratory Results
07/01/24
06:38
WBC 7.8
Hgb 8.3 L
Hct 24.4 L
Plt Count 171
Sodium 134 L
Potassium 4.3
Chloride 101
Carbon Dioxide 22
BUN 42 H
Creatinine 3.7 H
Glucose 163 H
Calcium 8.0 L
Vital Signs:
Vital Signs
Temp Pulse Resp BP Pulse Ox
98.1 F 93 20 129/97 98
07/01/24 07:20 07/01/24 07:20 07/01/24 07:20 07/01/24 07:20 07/01/24 07:20
I&O
06/30/24 07/01/24 07/02/24
06:59 06:59 06:59
Intake Total 0 / 2210 1920 / 1920
Output Total 1949 / 1950 600 / 600
Balance 260 / 260 1320 / 1320
Physical Exam
-
General: No Apparent Distress
HEENT: Normocephalic and Atraumatic
Respiratory: Negative Wheezes
Cardiac: Regular Rhythm and S1/S2
GI: Soft
Genito-urinary: No Costovertebral Tender
Musculoskeletal: No Edema
Neuro: AO x 3
Hematologic / Lymphatic: No Lymphadenopathy
Psych: Calm
Data Reviewed
-
Total Time Spent with Patient (in minutes): 41
Labs: Labs Reviewed by me
[2024-07-01 12:02] LABS: Glucose - Point of Care 164 mg/dl (70-99)
[2024-07-01] MEDS: ATIVAN 1 MG PO ×2 (12:21→20:35)
[2024-07-01] MEDS: NOVOLOG FLEXPEN-MODERATE RESISTANCE SC (13:50)
--- NOTE | 2024-07-01 15:07 | W.PN.NEPH.PH ---
Today's Communication / Plan
-
BMP in the morning
Anticipate from a renal standpoint would be okay for discharge in the next 24-hour
Assessment/Plan
-
Assessment
SHAYY
CKD4 baseline cr in low 3 range, saw Dr Sher in Feb 2024 and lost f/u
Metabolic acidosis
Hyperkalemia
Hypertension
Acute anemia hemoglobin 5.5
Likely upper GI bleed
Diabetes mellitus type 2
Seizure disorder.
Alcohol abuse
Plan
SHAYY-prerenal suspect related to severe anemia
underlying advanced CKD4 from DM, HTN ,old NSAIDs use
high risk of further progression in near future and requiring dialysis , lost f/u with Dr Sher
sig met acidosis-improved with IVF
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
hyponatremia-dilutional, TSH normal , cont FR 48ounces/day
s/p EGD today, no active bleeding, G ulcer and erosion noted,
hb stable, adequate fe stores, normal folate, low normal b12, s/p10k DANYELLE on 06/29
IV Fe course per primary
Keppra dose renally dosed
Renal function is stable status post colonoscopy.
Protein to creatinine ratio 13 g. Suspect this is diabetic. Follow-up as outpatient
Will need to follow-up with us closely. I did discuss with him that he would likely need renal replacement therapy over time as his current GFR is stage IV/V
Creatinine remains stable at 3.7
-
-
Date of Service: July 01, 2024
CC / HPI / ROS
-
Chief Complaint:
SHAYY, CKD
History of Present Illness:
cr no change at 3.7, non oliguric
BP up, hb better at 8.2
no fever, met acidosis better bicarb 27
sodium better at 134
Review of Systems:
no cp or sob
Labs
-
Labs:
WBC 7.8 10^3/uL (4.8-10.8) 07/01/24 06:38
RBC 2.52 10^6/uL (4.70-6.10) L 07/01/24 06:38
Hgb 8.3 g/dL (13.0-18.0) L 07/01/24 06:38
Hct 24.4 % (39.0-52.0) L 07/01/24 06:38
Plt Count 171 10^3/uL (130-400) 07/01/24 06:38
Sodium 134 mmol/L (135-145) L 07/01/24 06:38
Potassium 4.3 mmol/L (3.5-5.1) 07/01/24 06:38
Chloride 101 mmol/L (98-107) 07/01/24 06:38
Carbon Dioxide 22 mmol/L (22-30) 07/01/24 06:38
BUN 42 mg/dl (9-20) H 07/01/24 06:38
Creatinine 3.7 mg/dL (0.7-1.3) H 07/01/24 06:38
eGFR 17.16 07/01/24 06:38
Glucose 163 mg/dl (70-99) H 07/01/24 06:38
Calcium 8.0 mg/dl (8.4-10.2) L 07/01/24 06:38
Phosphorus 4.5 mg/dl (2.5-4.5) 06/28/24 04:38
Albumin 4.3 g/dl (3.5-5.0) 06/28/24 00:17
Physical Exam
-
Vital Signs:
Vital Signs
Temp Pulse Resp BP Pulse Ox
97.5 F 82 16 154/83 98
07/01/24 14:15 07/01/24 14:15 07/01/24 14:15 07/01/24 14:15 07/01/24 14:15
Cardiovascular:: Regular rate and rhythm
Respiratory:: Bilateral: CTA
Lung Excursion:: Normal
Abdomen:: Nontender and Soft
Extremity Edema:: +1: Bilateral:
Whitehead Catheter: No
[2024-07-01] MEDS: FERRLECIT 110 MG IV (16:40)
[2024-07-01] MEDS: NOVOLOG FLEXPEN-MODERATE RESISTANCE 7 UNITS SC (16:49)
[2024-07-01 16:52] LABS: Glucose - Point of Care 328 mg/dl (70-99)
--- NOTE | 2024-07-01 17:04 | PTCARENOTE ---
Patient returned from colonoscopy with stable Vital signs. Reviewed gently wiping post bowel movement secondary to clip in rectal area. Patient tolerating clear liquids. Patient's accu check 328 - covered as per sliding scale. Denies symptoms of
hyperglycemia.
[2024-07-01 21:16] LABS: Glucose - Point of Care 236 mg/dl (70-99)
[2024-07-02 03:20] VITALS: BP 145/95
[2024-07-02 07:20] LABS: Hematocrit 22.9 % (39.0-52.0); Hemoglobin 7.8 g/dL (13.0-18.0); Mean Corp Hgb Conc. 34.1 g/dL (33.0-37.0); Mean Corpuscular Hgb 33.1 pg (27.0-31.0); Mean Platelet Volume 9.2 fL (7.4-10.4); Platelet Count 180 10^3/uL (130-400); Red Blood Cell Count 2.36 10^6/uL (4.70-6.10); Red Cell Dist. Width 15.5 % (11.5-14.5); White Blood Cell Count 7.1 10^3/uL (4.8-10.8)
[2024-07-02 07:37] LABS: Blood Urea Nitrogen 34 mg/dl (9-20); Calcium 8.1 mg/dl (8.4-10.2); Carbon Dioxide 23 mmol/L (22-30); Chloride 103 mmol/L (98-107); Estimated Creatinine Clearance 19 ml/min; Glucose 151 mg/dl (70-99); Potassium 4.3 mmol/L (3.5-5.1); Sodium 134 mmol/L (135-145); eGFR 17.16
[2024-07-02 07:56] VITALS: BP 170/81
[2024-07-02 08:09] LABS: Glucose - Point of Care 172 mg/dl (70-99)
--- NOTE | 2024-07-02 08:50 | W.PN.GI.CBS2 ---
Today's Communication / Plan
-
dc planning gi follow up outpatient gi will sign off
Assessment / Plan
-
Pt is a 69yo with hx NIDDM, CKD, brain infection/seizure disorder, PUD with onset of weakness and anemia with a hemoglobin of 5.5, down from 9.4 in January 2024.
Etiology of anemia likely multifactorial - CKD, EtOH, DU (small). History B12 def as well in 2019. Iron studies not c/w CADE on admission (no ferritin checked).
S/p EGD (gastric erosions, HH, small DU) and colon (many polyps, tics, tortuous, small tear rectum).
Recommendations:
- Regular diet
- Plan VCE - I sent msg to coordinate and follow up after
- EtOH cessation reviewed with patient previously
DC planning, GI johnie sign off, please call with ?s
Subjective
Subjective
Date of Service: July 02, 2024
feels well no pain, fever
brown BM
Objective
Data Reviewed
Laboratory Data:
Laboratory Results
07/02/24 06:35
07/02/24 06:35
Laboratory Results
PT 13.6 Sec (11.4-14.6) 06/28/24 01:28
INR 1.01 06/28/24 01:28
APTT 27.8 Sec (23.4-35.0) 06/28/24 04:38
Phosphorus 4.5 mg/dl (2.5-4.5) 06/28/24 04:38
Magnesium 1.6 mg/dl (1.6-2.3) 06/28/24 04:38
Total Bilirubin 0.3 mg/dl (0.2-1.3) 06/28/24 00:17
AST 25 U/L (17-59) 06/28/24 00:17
ALT 18 U/L (0-50) 06/28/24 00:17
Alkaline Phosphatase 68 U/L (38-126) 06/28/24 00:17
Vital Signs and I&O:
Vital Signs
Temp Pulse Resp BP Pulse Ox
98 F 88 18 170/81 98
07/02/24 07:56 07/02/24 07:56 07/02/24 07:56 07/02/24 07:56 07/02/24 07:56
I&O
07/01/24 07/02/24 07/03/24
06:59 06:59 06:59
Intake Total 1920 / 1920 2150 / 2150
Output Total 600 / 600 500 / 500 300 / 300
Balance 1320 / 1320 1650 / 1650 -300 / -300
Physical Exam
Physical Exam
GI: Non Distended and Non Tender
[2024-07-02] MEDS: PROTONIX IV 40 MG IV (09:00)
[2024-07-02] MEDS: NSS (PRESERVATIVE FREE) 10 ML IV (09:00)
[2024-07-02] MEDS: PROCARDIA XL (EXTENDED RELEASE) 60 MG PO (09:01)
[2024-07-02] MEDS: TRANDATE 100 MG PO (09:02)
[2024-07-02] MEDS: FOLVITE 1 MG PO (09:02)
[2024-07-02] MEDS: KEPPRA 1000 MG PO (09:02)
[2024-07-02] MEDS: VITAMIN B1 100 MG PO (09:02)
[2024-07-02] MEDS: NOVOLOG FLEXPEN-MODERATE RESISTANCE 1 UNITS SC (09:03)
--- NOTE | 2024-07-02 11:28 | W.PN.HOSP.TC ---
Today's Communication/Plan
-
dc to home
Assessment / Plan
Assessment / Plan
Assessment:
Severe Symptomatic Anemia
Acute blood loss anemia on chronic anemia of CKD
GERD/Duodenal Ulcers
- s/p 2 units PRBCs
- s/p DANYELLE
- GI following
- EGD 06/30: Multiple diminutive plaques were found in the upper third of the esophagus. Biopsies were taken with a cold forceps for histology. A medium-sized hiatal hernia was present. Patchy mildly erythematous mucosa without bleeding was found in
the entire examined stomach. Biopsies were taken with a cold forceps for histology. A single localized erosion with no bleeding and no stigmata of recent bleeding was found in the gastric fundus. One non-bleeding superficial duodenal ulcer with a
clean ulcer base (Zeeshan Class III) was found in the second portion of the duodenum. The lesion was 4 mm in largest dimension. Diffuse nodular mucosa was found in the second portion of the duodenum; also some edema at the sweep but no additional
ulcers seen. Biopsies for histology were taken with a cold forceps for evaluation of celiac disease.
- Colonoscopy 07/01: many polyps, tics, tortuous, small tear rectum
- dc on PPI
- dc on oral iron daily
- OP Hematology evaluation
pre-renal SHAYY on CKD 4
acute Anion Gap Metabolic Acidosis / Lactic Acidosis
- Similar to prior admission - though at that time was attributed to NSAID use.
- No reported issues with urine output. Bladder scan protocol and straight cath if needed.
- continue PO Bicarb.
- Nephrology following
Hyponatremia
- fluid restriction; Na 134
DM-II
- Uncontrolled. On PO glipizide only. Does not monitor glucose at home.
- Doubt DKA as acidosis seems primarily due to lactic acid.
- Follow glucose and cover with SSI for now.
- Begin basal dosing if needed. Hold glipizide for now.
- A1C 6.8%
Benign Hypertension
- continue nifedipine and Labetalol per Renal
Remote Seizure Disorder
- Prior seizure reportedly due to 'brain infection'.
- No seizure activity since 2014.
- Continue Keppra; decreased to 1g BID for now - f/u PCP in 1-2 weeks for consideration of further adjustments
Alcohol Use Disorder
- Patient admits to daily EtOH intake.
- Likely contributing to multiple issues including duodenal ulcers, GI blood loss, acidosis, etc.
- MSAS protocol and BZDs PRN for symptoms of withdrawal.
- Thiamine/folate/MVI replacement.
LUE Edema
- Asymmetric edema of the LUE. US negative.
DVT Prophylaxis: SCDs for now given significant edema/suspected GI source of bleeding.
Code Status: Full
More than 30 minutes spent in discharge including
Final examination of the patient
Summarizing hospital stay
Instructions for continuing care to all relevant caregivers
Preparation of discharge records, prescriptions, and referral forms
Total time spent (in minutes): 41
Anticipated Discharge: Today
Subjective/Interval History
-
Date of Service: July 02, 2024
no complaints
Objective Data
-
Labs:
Laboratory Results
07/02/24
06:35
WBC 7.1
Hgb 7.8 L
Hct 22.9 L
Plt Count 180
Sodium 134 L
Potassium 4.3
Chloride 103
Carbon Dioxide 23
BUN 34 H
Creatinine 3.7 H
Glucose 151 H
Calcium 8.1 L
Vital Signs:
Vital Signs
Temp Pulse Resp BP Pulse Ox
98 F 88 18 170/81 98
07/02/24 07:56 07/02/24 07:56 07/02/24 07:56 07/02/24 09:02 07/02/24 07:56
I&O
07/01/24 07/02/24 07/03/24
06:59 06:59 06:59
Intake Total 1919 / 1920 2150 / 2150
Output Total 600 / 600 500 / 500 300 / 300
Balance 1320 / 1320 1650 / 1650 -300 / -300
Physical Exam
-
General: No Apparent Distress
HEENT: Normocephalic and Atraumatic
Respiratory: Negative Wheezes
Cardiac: Regular Rhythm and S1/S2
GI: Soft
Genito-urinary: No Costovertebral Tender
Neuro: AO x 3
Psych: Calm
Data Reviewed
-
Total Time Spent with Patient (in minutes): 41
Labs: Labs Reviewed by me
--- NOTE | 2024-07-02 11:49 | W.DS.TRANS ---
DC Summary - [employer]
-
Discharge Instructions:
Discharge Diagnosis/Procedures symptomatic anemia, GI blood loss s/p EGD and
Colonoscopy
Diet 2 Gram Sodium,Restrict fluids to 48 oz,Other
diet,Diabetic, Carb Controlled
Additional Diets 2 gram potassium restriction
Activity As tolerated
Bathing Restrictions None
Others Tests video capsule study through GI office in 1-2
weeks. repeat EGD to assess healing of ulcers in
8 weeks - GI office will setup both.
Instructions:
Stand-Alone Forms:
Changes to Home Medications: Yes
Discharge Medications:
DC Medications w/original date entered in [employer]
ferrous sulfate 325 mg (65 mg iron) tablet 325 mg PO DAILY #100 tabs 07/02/24
folic acid 1 mg tablet 1 mg PO DAILY #100 tabs 07/02/24
glipizide 2.5 mg tablet 2.5 mg PO DAILY #30 tabs 07/02/24
labetalol 100 mg tablet 100 mg PO BID #60 tabs 07/02/24
levetiracetam 500 mg tablet 1,000 mg (2 x 500 mg) PO BID #120 tabs 07/02/24
nifedipine 60 mg tablet,extended release 60 mg PO BID #60 tabs 07/02/24
pantoprazole 40 mg tablet,delayed release (Protonix) 40 mg PO BID #60 tabs 07/02/24
thiamine mononitrate (vit B1) 100 mg tablet 100 mg PO BID #100 tabs 07/02/24
Home Medication Changes
Labetolol new
nifedipine increased
Keppra reduced for renal function
Pending Results: No
Total time spent discharging patient (in min): 41
[2024-07-02 11:58] LABS: Glucose - Point of Care 209 mg/dl (70-99)
[2024-07-02] MEDS: NOVOLOG FLEXPEN-MODERATE RESISTANCE 3 UNITS SC (12:00)
--- NOTE | 2024-07-02 12:00 | CM ---
Patient is stable for d/c today per hospitalist
Family will transport home
No CM needs identified at this time
Plan: Home; no needs
--- NOTE | 2024-07-02 14:12 | W.PN.NEPH.PH ---
Today's Communication / Plan
-
Okay for discharge from renal standpoint will follow-up
Assessment/Plan
-
Assessment
SHAYY
CKD4 baseline cr in low 3 range, saw Dr Sher in Feb 2024 and lost f/u
Metabolic acidosis
Hyperkalemia
Hypertension
Acute anemia hemoglobin 5.5
Likely upper GI bleed
Diabetes mellitus type 2
Seizure disorder.
Alcohol abuse
Plan
SHAYY-prerenal suspect related to severe anemia
underlying advanced CKD4 from DM, HTN ,old NSAIDs use
high risk of further progression in near future and requiring dialysis , lost f/u with Dr Sher
sig met acidosis-improved with IVF
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
hyponatremia-dilutional, TSH normal , cont FR 48ounces/day
s/p EGD today, no active bleeding, G ulcer and erosion noted,
hb stable, adequate fe stores, normal folate, low normal b12, s/p10k DANYELLE on 06/29
IV Fe course per primary
Keppra dose renally dosed
Renal function is stable status post colonoscopy.
Protein to creatinine ratio 13 g. Suspect this is diabetic. Follow-up as outpatient
Will need to follow-up with us closely. I did discuss with him that he would likely need renal replacement therapy over time as his current GFR is stage IV/V
Creatinine remains stable at 3.7
ok for dc
Follow-up with us outpatient 2 to 4 weeks
-
-
Date of Service: July 02, 2024
CC / HPI / ROS
-
Chief Complaint:
SHAYY, CKD
History of Present Illness:
cr no change at 3.7, non oliguric
BP up, hb better at 8.2
no fever, met acidosis better bicarb 27
sodium better at 134
Review of Systems:
no cp or sob
Labs
-
Labs:
WBC 7.1 10^3/uL (4.8-10.8) 07/02/24 06:35
RBC 2.36 10^6/uL (4.70-6.10) L 07/02/24 06:35
Hgb 7.8 g/dL (13.0-18.0) L 07/02/24 06:35
Hct 22.9 % (39.0-52.0) L 07/02/24 06:35
Plt Count 180 10^3/uL (130-400) 07/02/24 06:35
Sodium 134 mmol/L (135-145) L 07/02/24 06:35
Potassium 4.3 mmol/L (3.5-5.1) 07/02/24 06:35
Chloride 103 mmol/L (98-107) 07/02/24 06:35
Carbon Dioxide 23 mmol/L (22-30) 07/02/24 06:35
BUN 34 mg/dl (9-20) H 07/02/24 06:35
Creatinine 3.7 mg/dL (0.7-1.3) H 07/02/24 06:35
eGFR 17.16 07/02/24 06:35
Glucose 151 mg/dl (70-99) H 07/02/24 06:35
Calcium 8.1 mg/dl (8.4-10.2) L 07/02/24 06:35
Phosphorus 4.5 mg/dl (2.5-4.5) 06/28/24 04:38
Albumin 4.3 g/dl (3.5-5.0) 06/28/24 00:17
Physical Exam
-
Vital Signs:
Vital Signs
Temp Pulse Resp BP Pulse Ox
98 F 88 18 170/81 98
07/02/24 07:56 07/02/24 07:56 07/02/24 07:56 07/02/24 09:02 07/02/24 13:49
Cardiovascular:: Regular rate and rhythm
Respiratory:: Bilateral: CTA
Lung Excursion:: Normal
Abdomen:: Nontender and Soft
Extremity Edema:: +1: Bilateral:
Whitehead Catheter: No
--- NOTE | 2024-07-02 14:41 | PTCARENOTE ---
Reviewed discharge instructions with patient. Patient verbalized understanding and denies questions at this time. IV removed. Assisted patient with getting dressed. Awaiting patient's grandson for transport to home.
== END 2024-07-02 15:03 | disposition home or self-care (01) | DRG 812 ==
LOC: 4 EAST ACU 04:11
PROVIDERS: Internal Medicine; Internal Medicine Gastroenterology; Nurse Practitioner Family; ADMITTING PHYSICIAN Hospitalist; ATTENDING PHYSICIAN Internal Medicine; CONSULT PHYSICIAN Internal Medicine Gastroenterology; CONSULT PHYSICIAN Internal Medicine Nephrology; EMERGENCY PHYSICIAN Emergency Medicine
PROC: 30233N1 Transfusion of Nonautologous Red Blood Cells into Peripheral Vein, Percutaneous Approach (ICD-10-PCS; 2024-06-28)
PROC: 0DBK8ZX Excision of Ascending Colon, Via Natural or Artificial Opening Endoscopic, Diagnostic (ICD-10-PCS; 2024-06-30)
PROC: 0DBL8ZX Excision of Transverse Colon, Via Natural or Artificial Opening Endoscopic, Diagnostic (ICD-10-PCS; 2024-07-01)
PROC: 0DBH8ZX Excision of Cecum, Via Natural or Artificial Opening Endoscopic, Diagnostic (ICD-10-PCS; 2024-07-01)
DX: D62 Acute posthemorrhagic anemia (principal); N17.9 Acute kidney failure, unspecified; E87.21 Acute metabolic acidosis; E87.1 Hypo-osmolality and hyponatremia; N18.4 Chronic kidney disease, stage 4 (severe); D12.2 Benign neoplasm of ascending colon; K44.9 Diaphragmatic hernia without obstruction or gangrene; K22.89 Other specified disease of esophagus; K31.89 Other diseases of stomach and duodenum; K57.30 Diverticulosis of large intestine without perforation or abscess without bleeding; K64.0 First degree hemorrhoids; E87.5 Hyperkalemia; I12.9 Hypertensive chronic kidney disease with stage 1 through stage 4 chronic kidney disease, or unspecified chronic kidney disease; E11.65 Type 2 diabetes mellitus with hyperglycemia; E11.22 Type 2 diabetes mellitus with diabetic chronic kidney disease; G40.909 Epilepsy, unspecified, not intractable, without status epilepticus; F10.10 Alcohol abuse, uncomplicated; E53.8 Deficiency of other specified B group vitamins; D63.1 Anemia in chronic kidney disease; K21.9 Gastro-esophageal reflux disease without esophagitis; D12.3 Benign neoplasm of transverse colon; M19.90 Unspecified osteoarthritis, unspecified site; Y90.6 Blood alcohol level of 120-199 mg/100 ml; Z79.4 Long term (current) use of insulin; Z86.0100 Personal history of colon polyps, unspecified
CPT/HCPCS: 88305; 88312; 36430; 74022; 80048; 80053; 80306; 81003; 81015; 82010; 82077; 82570; 82607; 82746; 82805; 82962; 83036; 83540; 83550; 83605; 83735; 84100; 84156; 84443; 85014; 85018; 85025; 85027; 85610; 85730; 86850; 86900; 86901; 86920; 88342; 93005; 93971; 96374; 99291; J2916; J7030; P9016; Q5106

== ENCOUNTER 2024-07-10 14:02 | Inpatient (IN) | payer BC, MEDICARE, SELFPAY ==
[2024-07-10] VITALS (8 sets, daily range): BP systolic 127–177; BP diastolic 64–98; BMI 26.8
[2024-07-10 07:48] LABS: % Basophils 0.7 % (0-2); % Eosinophils 0.8 % (0-6); % Immature Granulocytes 0.7 % (0-0.5); % Lymphocytes 5.7 % (20.5-51.1); % Monocytes 4.1 % (1.7-9.3); Absolute Basophils 0.1 10^3/uL (0-0.2); Absolute Eosinophils 0.1 10^3/uL (0-0.7); Absolute Immature Granulocytes 0.1 10^3/uL (0-0.05); Absolute Lymphocytes 0.5 10^3/uL (1.2-3.4); Absolute Monocytes 0.4 10^3/uL (0.1-0.6); Hematocrit 24.4 % (39.0-52.0); Hemoglobin 8.3 g/dL (13.0-18.0); Mean Corpuscular Hgb 33.5 pg (27.0-31.0); Mean Corpuscular Volume 98.4 fL (80.0-94.0); Mean Platelet Volume 8.8 fL (7.4-10.4); Nucleated Red Blood Cells % 0 % (-); Platelet Count 248 10^3/uL (130-400); Red Blood Cell Count 2.48 10^6/uL (4.70-6.10); Red Cell Dist. Width 15.3 % (11.5-14.5); White Blood Cell Count 9.1 10^3/uL (4.8-10.8)
[2024-07-10 07:51] LABS: Urine Albumin 3+ (Neg - Trace); Urine Bilirubin Negative (Negative); Urine Character Clear (Clear); Urine Color Yellow; Urine Glucose Negative (Negative); Urine Ketone Negative (Negative); Urine Leukocyte Negative (Negative); Urine Nitrite Negative (Negative); Urine Occult Blood 4+ (Negative); Urine Urobilinogen Negative (Neg - 1+)
[2024-07-10 08:08] LABS: ALT (SGPT) 25 U/L (0-50); AST (SGOT) 41 U/L (17-59); Albumin 3.7 g/dl (3.5-5.0); Alkaline Phosphatase 72 U/L (38-126); Blood Urea Nitrogen 62 mg/dl (9-20); Calcium 8.7 mg/dl (8.4-10.2); Carbon Dioxide 19 mmol/L (22-30); Chloride 107 mmol/L (98-107); Estimated Creatinine Clearance 15 ml/min; Glucose 50 mg/dl (70-99); Potassium 5.1 mmol/L (3.5-5.1); Sodium 137 mmol/L (135-145); Total Bilirubin 0.5 mg/dl (0.2-1.3); Total Protein 6.2 g/dl (6.3-8.2); eGFR 13.22
--- NOTE | 2024-07-10 08:13 | ED.GENMED ---
History of Present Illness
General
Chief Complaint: Weakness
Source: patient
Exam Limitations: none
Time Seen by Provider: 07/10/24 08:02
History of Present Illness
History of Present Illness:
Gradual increase in weakness since last evening. Was on the floor this morning trying to find his phone and he could got get off the floor. No other symptoms denying chest pain shortness of breath fever chills cough abdominal pain change in stools
or other complaints.
Past History
Past History
ED Past Medical History: IDDM, Seizures and Other (Kidney disease, daily alcohol use)
ED Past Surgical History: None
Social History
Tobacco: Non-smoker
Alcohol: Daily
Drug: None
Personal:
Living: with family
Employment: Employed
Review of Systems
Review of Systems
All Other Systems: Not applicable
Respiratory: Reports no symptoms
Cardiac: Reports no symptoms
ABD/GI: Reports no symptoms
Phy Exam
Physical Exam
Physical Exam:
GENERAL: Alert and oriented in no apparent distress
EYE: Orbits normal.
NECK: Supple, no thyroid palpable
ENT: Pharynx without erythema
CARDIAC: Regular rate and rhythm without any obvious murmurs.
LUNGS: Clear breath sounds,normal
ABDOMEN: Soft, without focal tenderness or distention. Stool yellowish-brown and test negative
NEUROLOGICAL: Alert and oriented , grossly non-focal
SKIN: Warm and dry, no rash or lesion, no discoloration, skin intact.
MUSCULOSKELETAL: No edema,no deformity.Good color. Good lower extremity strength. Patellar reflexes intact. Some swelling to the left arm but good distal pulses and color
PSYCH: Normal and appropriate interaction.
Course
Orders/Labs/Results
Orders:
Orders
07/10/24 07:40
Complete Blood Count/With Diff Urgent
Comprehensive Metabolic Panel Urgent
Creatine Phosphokinase Urgent
Comment: ADD ON
Urinalysis Reflex To Culture Urgent
Date Specimen was Collected: 07/10/24
Time Specimen was Collected: 07:39
Urine Microscopic Reflex Cult Urgent
07/10/24 08:09
Dextrose 50%-Water [Dextrose 50% Syringe] 25 grams .ROUTE .STK-MED ONE
07/10/24 08:16
EKG [Electrocardiogram (*1)] Urgent
Reason for Study: Fatigue / Weakness
EKG- Treatment ONCE
07/10/24 08:17
US Periph Venous UPPER Ext LT Urgent
Comment:
Reason For Exam: swelling
07/10/24 11:56
0.9% Sodium Chloride 500 ml [Nss] 500 ml IV BOLUS
07/10/24 12:36
Add On- LAB Urgent
Tests Added?: Creatinine Kinase
07/10/24 13:01
Admit/Transfer Patient As Directed
Co-Sign Provider:
Level of Care: Inpatient admission
Assign to:: Telemetry
Physician / Group: John/Hospitalist
Diagnosis: Acute renal failure, generalized weakness, hypoglycemia
Reason for Telemetry: Arrhythmia
Date to Stop Telemetry: 07/13/24
Time to Stop Telemetry: 11:00
Reason for Hospitalization: Acute renal failure, generalized weakness, hypoglycemia
Expected length of stay greater than two midnights?: Yes
ELOS- Estimated Length of Stay in days: 3
I certify the patient meets the requirements for IP care: Yes
PRN Pain Medication Management As Directed
May give lesser potent ordered pain med per pt: Yes
preference::
Protocol:: Medication orders for pain may be administered in a
manner that supports deferring to patient preference
when the pt is:
- Requesting an ordered lesser potent pain medication.
Least to most potent pain medications are defined
as: acetaminophen < NSAID < tramadol < opioids
(morphine, oxycodone, hydromorphone).
- Requesting a lesser dose of the same medication IF
ORDERED.
- Requesting a less intrusive route of administration
if both routes are prescribed by the provider (PO <
IV).
07/10/24 13:03
Code Status As Directed
Resuscitation Status: Full Code
07/13/24 11:00
DC Protocol for Telemetry ONCE
Abnormal Lab Results
07/10/24 07/10/24 07/10/24
07:40 10:41 11:09
RBC 2.48 L 10^6/uL
(4.70-6.10)
Hgb 8.3 L g/dL
(13.0-18.0)
Hct 24.4 L %
(39.0-52.0)
MCV 98.4 H fL
(80.0-94.0)
MCH 33.5 H pg
(27.0-31.0)
RDW 15.3 H %
(11.5-14.5)
Abs Immat Gran (auto) 0.1 H 10^3/uL
(0-0.05)
Absolute Neuts (auto) 8.0 H 10^3/uL
(1.4-6.5)
Absolute Lymphs (auto) 0.5 L 10^3/uL
(1.2-3.4)
Immature Gran % 0.7 H %
(0-0.5)
Neutrophils % 88.0 H %
(42.2-75.2)
Lymphocytes % 5.7 L %
(20.5-51.1)
Carbon Dioxide 19 L mmol/L
(22-30)
BUN 62 H mg/dl
(9-20)
Creatinine 4.6 H* mg/dL
(0.7-1.3)
Glucose 50 L* mg/dl
(70-99)
Creatine Kinase 894 H U/L
(55-170)
Total Protein 6.2 L g/dl
(6.3-8.2)
Ur Occult Blood Reflex 4+ A
(Negative)
Urine RBC 3-6 A /HPF
(0-2)
Urine Albumin (Reflex) 3+ A
(Neg - Trace)
POC Glucose 65 L mg/dl 105 H mg/dl
(70-99) (70-99)
07/10/24
13:09
RBC
Hgb
Hct
MCV
MCH
RDW
Abs Immat Gran (auto)
Absolute Neuts (auto)
Absolute Lymphs (auto)
Immature Gran %
Neutrophils %
Lymphocytes %
Carbon Dioxide
BUN
Creatinine
Glucose
Creatine Kinase
Total Protein
Ur Occult Blood Reflex
Urine RBC
Urine Albumin (Reflex)
POC Glucose 184 H mg/dl
()
07/10/24 07:40
07/10/24 07:40
Vital Signs
Initial and Last Documented VS:
Initial Vital Signs
Temp Pulse Resp BP Pulse Ox
97.7 F 90 16 176/91 99
07/10/24 07:32 07/10/24 07:32 07/10/24 07:32 07/10/24 07:32 07/10/24 07:32
Last Documented Vital Signs
Temp Pulse Resp BP Pulse Ox
97.7 F 85 18 168/85 98
07/10/24 07:32 07/10/24 14:28 07/10/24 14:28 07/10/24 14:28 07/10/24 14:28
MDM/Problems Addressed
Differential Diagnosis Includes:
Patient complaining of general weakness with a nonfocal exam. Nothing to describe infectious symptoms or acute GI bleed issues. Does not sound cardiac. There is a slight bump in his creatinine and his blood sugar is 50. This may be related to
his glipizide. Will discuss with nephrology. Also will ultrasound the left arm with this ongoing swelling. Had an ultrasound 2 weeks ago that was unremarkable
*Pulse Oximetry
Patient hypoxic: no
*EKG
Interpreted by ED Provider?: Yes
Interpretation: normal
Comparison EKG: no changes
Heart Rate: 89
Rate: normal
Rhythm: sinus
[place]: normal axis
Interval: normal interval
QRS Pattern: normal QRS
Ischemia: no ischemia
*Critical Care Note
Total Time (30-74mins, 75-104mins- exclusive of procedures): Not Applicable
Data Reviewed
Review of Other/Old Records Reveals: Labs, Records, Radiology Studies, Testing and Discharge Summary
Update Note
Update Note:
Patient weak and unsteady walking. Will admit for further care
ED Attending Note
-
Portions of this chart may have been created with voice recognition software.� Occasional wrong word or��sound alike� substitutions may have occurred due to the inherent limitations of voice recognition software.
Discharge Plan
Departure
Patient Disposition: Admit
Date of Disposition: 07/10/24
Time of Disposition: 11:56
Presentation/result/management discussed w/ accepting MD/DO: Hospitalist
Discharge Problem:
General weakness, Progressive renal disease, Hypoglycemia
Interventions
Interventions:
*Risk Screen - Suicide Last Done: 07/10/24 07:32
*General Assessment Last Done: 07/10/24 07:32
*Neglect/Abuse Screening Last Done: 07/10/24 07:32
*ED- Fall Risk Assessment Last Done: 07/10/24 07:32
*ED COVID-19 Vaccine History Last Done: 07/10/24 07:32
ED- Cardiac Assessment Last Done: 07/10/24 07:32
ED- Neurological Assessment Last Done: 07/10/24 07:32
ED- Pulmonary Assessment Last Done: 07/10/24 07:32
[2024-07-10 08:30] LABS: Urine Amorphous Seen; Urine White Cell 0-2 /HPF (0-5)
[2024-07-10 08:37] LABS: Glucose - Point of Care 80 mg/dl (70-99)
[2024-07-10 10:43] LABS: Glucose - Point of Care 65 mg/dl (70-99)
[2024-07-10 11:10] LABS: Glucose - Point of Care 105 mg/dl (70-99)
--- NOTE | 2024-07-10 12:14 | HPS.HSE ---
Family Physician
-
Family Physician: NOT KNOW UNKNOWN - PT DOES
Chief Complaint
-
Weakness,, hypoglycemia
History of Present Illness
The patient is a 69-year-old gentleman with past medical history significant for insulin-dependent diabetes, seizures, daily alcohol use, and progressive renal disease with CKD stage IV, baseline creatinine in the low 3 range, who presented to the
emergency department today due to a gradual increase in weakness that has been occurring since last evening. When he was trying to find his phone off the floor this morning, he was unable to get off of the floor until EMS arrived. He denies
symptoms of chest pain, no shortness of breath, no palpitations, no fevers chills night sweats, no cough, no abdominal complaints, no bleeding nor change in stools. No change in urination-he urinates regularly, no increase in weight, No dysuria.
He notes that he went back to work for 2 days after being discharged from the hospital last week. He took his glipizide yesterday, however did not eat anything for half a day. He denies any recent upper respiratory infection nor any symptoms of
infection. He has been taking Tylenol, denies nonsteroidal use, and was started on a muscle relaxant over the past week by his orthopedic surgeon for knee problems. Creatinine in the ED is 4.6. Glucose was 50. CO2 19. rest of The patient takes
glipizide. Of note the patient was admitted to the hospital on June 28 and discharged on July 02 due to symptomatic anemia with gastrointestinal blood loss status post EGD and colonoscopy. He received 2 units of packed red blood cells at that
time. EGD on showed a nonbleeding duodenal ulcer. Colonoscopy showed was positive for polyps and it had a polypectomy and it also showed diverticulosis. Gastroenterology suspected that the etiology of anemia was likely multifactorial due to
CKD, alcohol use, and small duodenal ulcer. Hemoglobin is 8.3 on admission today and was 7.3 on discharge. Creatinine is up to 4.6 today and it was 3.7 on July 02, 2024 urinalysis shows 4+ occult blood and 3-6 RBCs and 3+ albumin. His plan was
for close follow-up with nephrology as an outpatient. He did not take any of his pills this morning.
ED treatment: Dextrose 50% and IV fluid bolus of 500 mL
Imaging: Ultrasound of the left upper extremity is negative for DVT
Medical History
Past Medical History
Past Medical History: Reports Other
Additional Past Medical History:
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
Hypertension
Diabetes Mellitus, Type II
CKD Stage III
GERD / Duodenal Ulcers (2019 and 2023)
Past Surgical History: Reports None
Social History
Tobacco: Non-smoker
Alcohol: Daily
Drug: None
Personal:
Living: With Family
Family History
Family History: Diabetes
Allergies / Home Medications
Allergies reflects when Allergies were last updated in [facility].
Home Medications with original date entered in [facility]
Allergy/Medication List:
Allergies
Allergy/AdvReac Type Severity Reaction Status Date / Time
No Known Allergies Allergy Verified 06/28/24 00:09
Home Medications
ferrous sulfate 325 mg (65 mg iron) tablet 325 mg PO DAILY #100 tabs 07/02/24
folic acid 1 mg tablet 1 mg PO DAILY #100 tabs 07/02/24
glipizide 2.5 mg tablet 2.5 mg PO DAILY #30 tabs 07/02/24
labetalol 100 mg tablet 100 mg PO BID #60 tabs 07/02/24
nifedipine 60 mg tablet,extended release 60 mg PO BID #60 tabs 07/02/24
pantoprazole 40 mg tablet,delayed release (Protonix) 40 mg PO BID #60 tabs 07/02/24
acetaminophen 500 mg tablet (Tylenol Extra Strength) 1,000 mg PO BID 07/10/24
levetiracetam 500 mg tablet 1,500 mg PO BID 07/10/24
meloxicam 15 mg tablet 15 mg PO DAILY 07/10/24
pioglitazone 30 mg tablet 30 mg PO DAILY 07/10/24
sodium bicarbonate 650 mg tablet 1,300 mg PO BID 07/10/24
Review of Systems
-
A 12 point ROS was completed and negative except as noted: Yes
Physical Exam
Vital Signs
Vital Signs
Temp Pulse Resp BP Pulse Ox
97.7 F 92 18 177/98 99
07/10/24 07:32 07/10/24 11:30 07/10/24 11:30 07/10/24 11:00 07/10/24 08:00
Physical Exam
General: Well Developed, Well Nourished, No Apparent Distress, Comfortable and Conversant
HEENT: NormoCephalic, Anicteric and Moist mucous membranes
Respiratory: Clear
Cardiac: S1/S2 and Regular Rhythm
GI: Soft, Non Tender and Non Distended
Genito-urinary: Clear Urine
Musculoskeletal: No Clubbing, No Cyanosis, Edema, Left Lower Extremity (2+) and Edema, Right Lower Extremity (2+)
Skin: Warm
Neuro: AO x 3, No Motor Deficits and Nonfocal/grossly intact
Psych: Calm
Laboratory Results
-
07/10/24 07:40
07/10/24 07:40
Laboratory Results
Total Bilirubin 0.5 mg/dl (0.2-1.3) 07/10/24 07:40
AST 41 U/L (17-59) 07/10/24 07:40
ALT 25 U/L (0-50) 07/10/24 07:40
Alkaline Phosphatase 72 U/L (38-126) 07/10/24 07:40
Data Reviewed
-
Medical Tests (Nuc Med, Echo, EKG etc): Image Personally Visualized and interpreted and Report Reviewed by me (Normal sinus rhythm, unchanged from prior)
Impression/Plan
-
IMPRESSION:The patient is a 69-year-old gentleman with past medical history significant for insulin-dependent diabetes, seizures, daily alcohol use, and progressive renal disease with CKD stage IV, baseline creatinine in the low 3 range, who
presented to the emergency department today due to a gradual increase in weakness that has been occurring since last evening. When he was trying to find his phone off the floor this morning, he was unable to get off of the floor until EMS arrived.
He denies symptoms of chest pain, no shortness of breath, no palpitations, no fevers chills night sweats, no cough, no abdominal complaints, no bleeding nor change in stools. No change in urination-he urinates regularly, no increase in weight, No
dysuria.
Creatinine in the ED is 4.6.
Glucose was 50. CO2 19. The patient takes glipizide.
Of note the patient was admitted to the hospital on June 28 and discharged on July 02 due to symptomatic anemia with gastrointestinal blood loss status post EGD and colonoscopy. He received 2 units of packed red blood cells at that time. EGD on
showed a nonbleeding duodenal ulcer. Colonoscopy showed was positive for polyps and it had a polypectomy and it also showed diverticulosis. Gastroenterology suspected that the etiology of anemia was likely multifactorial due to CKD, alcohol
use, and small duodenal ulcer. Hemoglobin is 8.3 on admission today and was 7.3 on discharge. Creatinine is up to 4.6 today and it was 3.7 on July 02, 2024 urinalysis shows 4+ occult blood and 3-6 RBCs and 3+ albumin. His plan was for close
follow-up with nephrology as an outpatient. He did not take any of his pills this morning.
ED treatment: Dextrose 50% and IV fluid bolus of 500 mL
Imaging: Ultrasound of the left upper extremity is negative for DVT
# Generalized weakness, likely multifactorial due to hypoglycemia and acute on chronic kidney failure with metabolic acidosis.
�Admit to telemetry monitoring as an inpatient level of care
�Consultation to nephrology appreciated
�The patient is likely dehydrated he is status post 500 mL fluid bolus in the emergency department.
-Will discuss further fluid options including possible bicarbonate with nephrology.
- Hold his glipizide for now and monitor blood sugars
# Acute renal failure on chronic kidney disease, associated with metabolic acidosis, component of volume depletion
- Consultation to nephrology is appreciated
- Avoid nephrotoxic agents, monitor intake and output
- CK is pending at this time
#Anemia,
setting of chronic anemia of CKD, history of GERD and duodenal
ulcer, status post 2 units of PRBCs at recent hospitalization,
status post EGD -peptic ulcer disease with duodenal ulcer
colonoscopy.
-Continue PPI and oral iron daily. Outpatient plan was for video capsule
in 1-2 weeks and repeat EGD to assess ulcer healing in 8 weeks.
Also outpatient hematology evaluation for anemia.
# Type 2 diabetes, on glipizide.
-Hold glipizide for now monitor blood sugars
# Essential hypertension on nifedipine and labetalol
- Continue home meds
# History of seizure disorder on Keppra, now reduced to 1 g b.i.d.
from 1.5 g b.i.d. due to renal function
- Continue Keppra
# Alcohol use disorder
- Alcohol withdrawal protocol, monitor for symptoms of withdrawal
-Thiamine, folate, multivitamin
DVT proph-heparin
Full Code
--- NOTE | 2024-07-10 12:29 | CM ---
Patient seen at bedside in ED. Patient states that he lives alone. Patient indicated the home was 2 stories and he did not have any DME. Patient is currently driving but his nephew is planning to drive him home. Patient plan is for discharge home
with no needs. Patient PCP is Dr. Carlin and he uses the [facility] in [place]. CM will continue to follow for discharge planning needs.
Plan; home with no needs anticipated; watch for pt/ot recommendations
[2024-07-10] MEDS: NSS 500 IV (12:31)
[2024-07-10 13:10] LABS: Glucose - Point of Care 184 mg/dl (70-99)
[2024-07-10 13:23] LABS: Creatine Phosphokinase 894 U/L (55-170)
--- NOTE | 2024-07-10 15:41 | W.CON.NEPH ---
Consultation
-
Date/Time Consultation Requested: 07/10/20242024 at 1 PM
Date/Time Consultation Performed: July 10, 2024 at 3 PM
Requesting Provider: Dr. Lopez
Performing Provider: Dr. Iniguez
Reason for Consultation: Acute kidney injury on chronic kidney disease
Medical History
-
Chief Complaint: Acute on chronic kidney disease
History of Present Illness:
69-year-old gentleman with past medical history significant for insulin-dependent diabetes, seizures, daily alcohol use, and progressive renal disease with CKD stage IV, baseline creatinine in the low 3 range, who presented to the emergency
department today due to a gradual increase in weakness that has been occurring since last evening. He was found to have hypoglycemia.
Renal consult for mild acute on chronic kidney disease stage IV. With a creatinine of greater than 4
He otherwise has no chest pain shortness of breath nausea or vomiting.
He has had multiple admissions in last 2 months to 4 hemoglobin less than 6 and a GI bleed.
Past Medical History
Hypertension, brain infection, seizure disorder, diabetes mellitus type 2, hyperlipidemia, knee pain
Social History
Tobacco: Non-Smoker
Alcohol: Daily
Family History
Family History: Not Pertinent
Allergies / Home Medications
Allergy/AdvReac Type Severity Reaction Status Date / Time
No Known Allergies Allergy Verified 06/28/24 00:09
�Medication �Instructions �Recorded �Confirmed �Type
ferrous sulfate 325 mg (65 mg 325 mg PO DAILY #100 tabs 07/02/24 07/10/24 Rx
iron) tablet
folic acid 1 mg tablet 1 mg PO DAILY #100 tabs 07/02/24 07/10/24 Rx
glipizide 2.5 mg tablet 2.5 mg PO DAILY #30 tabs 07/02/24 07/10/24 Rx
labetalol 100 mg tablet 100 mg PO BID #60 tabs 07/02/24 07/10/24 Rx
nifedipine 60 mg tablet,extended 60 mg PO BID #60 tabs 07/02/24 07/10/24 Rx
release
pantoprazole 40 mg tablet,delayed 40 mg PO BID #60 tabs 07/02/24 07/10/24 Rx
release (Protonix)
acetaminophen 500 mg tablet 1,000 mg PO BID 07/10/24 07/10/24 History
(Tylenol Extra Strength)
levetiracetam 500 mg tablet 1,500 mg PO BID 07/10/24 07/10/24 History
meloxicam 15 mg tablet 15 mg PO DAILY 07/10/24 07/10/24 History
pioglitazone 30 mg tablet 30 mg PO DAILY 07/10/24 07/10/24 History
sodium bicarbonate 650 mg tablet 1,300 mg PO BID 07/10/24 07/10/24 History
Review of Systems
-
Generalized weakness
All other systems: Negative unless noted
Physical Exam
Vital Signs
Vital Signs
Temp Pulse Resp BP Pulse Ox
97.7 F 85 18 168/85 98
07/10/24 07:32 07/10/24 14:28 07/10/24 14:28 07/10/24 14:28 07/10/24 14:28
Lab Results
WBC 9.1 10^3/uL (4.8-10.8) 07/10/24 07:40
RBC 2.48 10^6/uL (4.70-6.10) L 07/10/24 07:40
Hgb 8.3 g/dL (13.0-18.0) L 07/10/24 07:40
Hct 24.4 % (39.0-52.0) L 07/10/24 07:40
Plt Count 248 10^3/uL (130-400) 07/10/24 07:40
Sodium 137 mmol/L (135-145) 07/10/24 07:40
Potassium 5.1 mmol/L (3.5-5.1) 07/10/24 07:40
Chloride 107 mmol/L (98-107) 07/10/24 07:40
Carbon Dioxide 19 mmol/L (22-30) L 07/10/24 07:40
BUN 62 mg/dl (9-20) H 07/10/24 07:40
Creatinine 4.6 mg/dL (0.7-1.3) H* 07/10/24 07:40
eGFR 13.22 07/10/24 07:40
Glucose 50 mg/dl (70-99) L* 07/10/24 07:40
Calcium 8.7 mg/dl (8.4-10.2) 07/10/24 07:40
Albumin 3.7 g/dl (3.5-5.0) 07/10/24 07:40
Physical Exam
Patient is awake alert oriented and in no distress. Mood and affect were pleasant, insight and judgment were good. Pupils are equal round and reactive to light, extraocular movements are intact, sclera were anicteric. Hearing was normal, ears and
nose are intact. Oropharynx was clear. Neck was supple with trachea midline and no thyromegaly. Heart was regular rate and rhythm without rubs. Lower extremities without edema. Lungs were clear to auscultation bilaterally and with normal
excursion. Abdomen was soft, nontender, with normal active bowel sounds, and no hepatosplenomegaly. Skin was without rash and with normal turgor.
Data Reviewed
-
Labs: Labs Reviewed by me, Discussed with Physician and Discussed with Patient
Assessment/Plan
-
Assessment
SHAYY
CKD4 baseline cr in low 3 range, saw Dr Sher in Feb 2024 and lost f/u
Metabolic acidosis
Hyperkalemia
Hypertension
Anemia of chronic disease with history of GI bleed
Diabetes mellitus type 2
Seizure disorder.
Alcohol abuse
Plan
Mild acute kidney injury with a creatinine of greater than 4 with a GFR less than 15.
Patient has weakness of his lower extremities unlikely secondary to uremia.
Creatinine on discharge 07/02 was 3.7
advanced CKD4 from DM, HTN ,old NSAIDs use
Protein to creatinine ratio 13 g. Likely diabetic etiology
Agree with IV fluids
With hypoglycemia would discontinue glipizide for now as he may not require antihyperglycemic medications with his diminished GFR
No acute need for dialysis at this time but we did discuss the possibilities sooner than later
[2024-07-10] MEDS: TRANDATE 100 MG PO ×2 (17:33→20:33)
[2024-07-10 18:29] LABS: Glucose - Point of Care 207 mg/dl (70-99)
[2024-07-10] MEDS: NOVOLOG FLEXPEN-LOW RESISTANCE 2 UNITS SC (18:29)
--- NOTE | 2024-07-10 18:32 | PTCARENOTE ---
Patient admitted from ER into room 407-01. Vital signs stable. Accu check 207. Patient treated with 2 units of insulin as per sliding scale. Patient received dinner and is eating without complaint. Oriented to room, use of call scott, and TV and bed
controls. Patient verbalizes understanding of teaching and denies questions at this time.
[2024-07-10 20:23] LABS: Blood Urea Nitrogen 62 mg/dl (9-20); Calcium 8.2 mg/dl (8.4-10.2); Carbon Dioxide 19 mmol/L (22-30); Chloride 107 mmol/L (98-107); Estimated Creatinine Clearance 16 ml/min; Glucose 251 mg/dl (70-99); Potassium 5.1 mmol/L (3.5-5.1); Sodium 133 mmol/L (135-145); eGFR 13.94
[2024-07-10] MEDS: KEPPRA 1500 MG PO (20:31)
[2024-07-10] MEDS: HEPARIN 5000 UNITS SC (20:31)
[2024-07-10] MEDS: PROTONIX 40 MG PO (20:32)
[2024-07-10] MEDS: PROCARDIA XL (EXTENDED RELEASE) 60 MG PO (20:32)
[2024-07-10] MEDS: SODIUM BICARBONATE 1300 MG PO (20:32)
[2024-07-10] MEDS: THIAMINE INJECTION 200 MG IV (20:33)
[2024-07-10] MEDS: TYLENOL 1000 MG PO (20:33)
[2024-07-10 21:20] LABS: Glucose - Point of Care 316 mg/dl (70-99)
[2024-07-10] MEDS: MELATONIN 5 MG PO (22:28)
[2024-07-11] VITALS (7 sets, daily range): BP systolic 119–146; BP diastolic 63–86; PULSE 78; O2SAT 97; BMI 26.2
[2024-07-11 03:07] LABS: Glucose - Point of Care 283 mg/dl (70-99)
--- NOTE | 2024-07-11 06:25 | W.PN.HOSP.TC ---
Today's Communication/Plan
-
see a/p
Assessment / Plan
Assessment / Plan
Physical Exam
General: no acute distress, appears comfortable at this time
HEENT: NormoCephalic, Anicteric and Moist mucous membranes
Respiratory: Clear
Cardiac: S1/S2 and Regular Rhythm
GI: Soft, Non Tender and Non Distended
Musculoskeletal: No Clubbing, No Cyanosis, No Edema
Skin: Warm
Neuro: AO x 3 conversant coherent
Psych: Calm
# Generalized weakness, likely multifactorial due to hypoglycemia, acute on chronic kidney failure with metabolic acidosis, possible symptomatic anemia
�Tele Admit
�Consultation to nephrology appreciated
�likely dehydrated received 500 mL fluid bolus in ED
- Hold glipizide for now and monitor blood sugars
# Acute renal failure on chronic kidney disease, associated with metabolic acidosis, component of volume depletion
- Nephro consult appreciated patient may require HD this admission, monitoring
- Avoid nephrotoxic agents, monitor intake and output
- CK appreciated elevated but <1000
#Anemia, setting of chronic anemia of CKD, history of GERD and duodenal ulcer, status post 2 units of PRBCs at recent hospitalization, status post EGD/colonoscopy -peptic ulcer disease with duodenal ulcer
-Continue PPI and oral iron daily. Outpatient plan was for video capsule in 1-2 weeks and repeat EGD to assess ulcer healing in 8 weeks.
-monitor H&H
# Type 2 diabetes, on glipizide.
-Hold glipizide for now
-Sliding scale
# Essential hypertension on nifedipine and labetalol
- Continue home meds
# Remote History of seizure disorder on Keppra
- No sz activity since 2014
-check keppra level
-Keppra dose reduced to renal dosing 500 mg Q12H
# Alcohol use disorder
- Alcohol withdrawal protocol, monitor for symptoms of withdrawal
-Thiamine, folate, multivitamin
-counseled cessation ETOH use
DVT proph-heparin
Full Code
I spent a total of 50 minutes with the patient or on the floor. More than 50% of this time involved counseling and coordination of care.
Anticipated Discharge: 24 - 48 hours
Subjective/Interval History
-
Date of Service: July 11, 2024
No acute distress sitting up comfortably in bed. Overall reports feeling well. Weakness significantly improved.
Objective Data
-
Labs:
Laboratory Results
07/10/24 07/11/24
19:56 06:10
WBC Pending
Hgb Pending
Hct Pending
Plt Count Pending
Sodium 133 L Pending
Potassium 5.1 Pending
Chloride 107 Pending
Carbon Dioxide 19 L Pending
BUN 62 H Pending
Creatinine 4.4 H* Pending
Glucose 251 H Pending
Calcium 8.2 L Pending
Vital Signs:
Vital Signs
Temp Pulse Resp BP Pulse Ox
98 F 76 18 130/66 97
07/11/24 03:14 07/11/24 03:14 07/11/24 03:14 07/11/24 03:14 07/11/24 03:14
[2024-07-11 07:31] LABS: Glucose - Point of Care 229 mg/dl (70-99)
[2024-07-11 08:03] LABS: Hematocrit 21.1 % (39.0-52.0); Mean Corp Hgb Conc. 33.2 g/dL (33.0-37.0); Mean Corpuscular Hgb 33.2 pg (27.0-31.0); Mean Platelet Volume 9.4 fL (7.4-10.4); Platelet Count 201 10^3/uL (130-400); Red Blood Cell Count 2.11 10^6/uL (4.70-6.10); Red Cell Dist. Width 15.6 % (11.5-14.5); White Blood Cell Count 4.3 10^3/uL (4.8-10.8)
[2024-07-11 08:07] LABS: Blood Urea Nitrogen 61 mg/dl (9-20); Calcium 8.4 mg/dl (8.4-10.2); Carbon Dioxide 19 mmol/L (22-30); Chloride 107 mmol/L (98-107); Estimated Creatinine Clearance 15 ml/min; Glucose 229 mg/dl (70-99); Magnesium 1.7 mg/dl (1.6-2.3); Potassium 4.9 mmol/L (3.5-5.1); Sodium 134 mmol/L (135-145); eGFR 13.22
[2024-07-11] MEDS: NOVOLOG FLEXPEN-LOW RESISTANCE 2 UNITS SC ×2 (08:43→17:57)
[2024-07-11] MEDS: PROCARDIA XL (EXTENDED RELEASE) 60 MG PO ×2 (08:43→20:32)
[2024-07-11] MEDS: TRANDATE 100 MG PO ×2 (08:43→20:32)
[2024-07-11] MEDS: PROTONIX 40 MG PO ×2 (08:43→20:33)
[2024-07-11] MEDS: KEPPRA 1500 MG PO (08:43)
[2024-07-11] MEDS: TYLENOL 1000 MG PO ×2 (08:43→20:33)
[2024-07-11] MEDS: HEPARIN 5000 UNITS SC ×2 (08:44→20:31)
[2024-07-11] MEDS: SODIUM BICARBONATE 1300 MG PO ×2 (08:44→20:33)
[2024-07-11] MEDS: THIAMINE INJECTION 200 MG IV ×2 (08:44→20:33)
[2024-07-11] MEDS: FEOSOL 325 MG PO (08:44)
[2024-07-11] MEDS: FOLVITE 1 MG PO (08:44)
[2024-07-11] MEDS: FLUSH (NSS) 2 FLUSH IV (08:45)
[2024-07-11 11:08] LABS: Hematocrit 21.4 % (39.0-52.0); Hemoglobin 7.1 g/dL (13.0-18.0)
[2024-07-11 11:35] LABS: Iron 102 ug/dl (49-181); Percent Saturation 46 % (20-50); Total Iron Binding Capacity 220 ug/dl (261-462)
[2024-07-11 11:56] LABS: Glucose - Point of Care 307 mg/dl (70-99)
[2024-07-11] MEDS: NOVOLOG FLEXPEN-LOW RESISTANCE 4 UNITS SC (12:41)
[2024-07-11 12:59] LABS: Folate > 20.0 ng/ml (2.76-20); Vitamin B12 662 pg/ml (239-931)
--- NOTE | 2024-07-11 14:06 | W.PN.NEPH.PH ---
Today's Communication / Plan
-
BMP in the morning
Assessment/Plan
-
Assessment
SHAYY
CKD4 baseline cr in low 3 range, saw Dr Sher in Feb 2024 and lost f/u
Metabolic acidosis
Hyperkalemia
Hypertension
Anemia of chronic disease with history of GI bleed
Diabetes mellitus type 2
Seizure disorder.
Alcohol abuse
Plan
Mild acute kidney injury with a creatinine of greater than 4 with a GFR less than 15.
Patient has weakness of his lower extremities unlikely secondary to uremia.
Creatinine on discharge 07/02 was 3.7
advanced CKD4 from DM, HTN ,old NSAIDs use
Protein to creatinine ratio 13 g. Likely diabetic etiology
Creatinine continues to increase at 4.6 to despite IV fluids.
Patient may need dialysis on this admission although no acute need at this time.
A.m. labs
-
-
Date of Service: July 11, 2024
CC / HPI / ROS
-
Chief Complaint:
Generalized weakness
History of Present Illness:
Presents with hypoglycemia with blood sugar of 50 and weakness with acute on chronic kidney disease
Review of Systems:.
No chest pain shortness of breath nausea vomiting
Labs
-
Labs:
WBC 4.3 10^3/uL (4.8-10.8) L 07/11/24 06:10
RBC 2.11 10^6/uL (4.70-6.10) L 07/11/24 06:10
Hgb 7.1 g/dL (13.0-18.0) L 07/11/24 10:35
Hct 21.4 % (39.0-52.0) L 07/11/24 10:35
Plt Count 201 10^3/uL (130-400) 07/11/24 06:10
Sodium 134 mmol/L (135-145) L 07/11/24 06:10
Potassium 4.9 mmol/L (3.5-5.1) 07/11/24 06:10
Chloride 107 mmol/L (98-107) 07/11/24 06:10
Carbon Dioxide 19 mmol/L (22-30) L 07/11/24 06:10
BUN 61 mg/dl (9-20) H 07/11/24 06:10
Creatinine 4.6 mg/dL (0.7-1.3) H* 07/11/24 06:10
eGFR 13.22 07/11/24 06:10
Glucose 229 mg/dl (70-99) H 07/11/24 06:10
Calcium 8.4 mg/dl (8.4-10.2) 07/11/24 06:10
Albumin 3.7 g/dl (3.5-5.0) 07/10/24 07:40
Physical Exam
-
Vital Signs:
Vital Signs
Temp Pulse Resp BP Pulse Ox
98.3 F 80 18 119/63 96
07/11/24 11:25 07/11/24 11:25 07/11/24 11:25 07/11/24 11:25 07/11/24 11:25
Cardiovascular:: Regular rate and rhythm
Respiratory:: Bilateral: CTA
Lung Excursion:: Normal
Abdomen:: Nontender and Soft
Extremity Edema:: +1: Bilateral:
Whitehead Catheter: No
[2024-07-11 16:46] LABS: Glucose - Point of Care 249 mg/dl (70-99)
[2024-07-11] MEDS: KEPPRA 500 MG PO (20:31)
[2024-07-11] MEDS: MELATONIN 5 MG PO (20:44)
[2024-07-11 21:47] LABS: Glucose - Point of Care 247 mg/dl (70-99)
[2024-07-12 03:55] VITALS: BP 119/78
[2024-07-12 06:00] VITALS: BMI 26.0
[2024-07-12 06:14] LABS: Hematocrit 21.3 % (39.0-52.0); Hemoglobin 7.2 g/dL (13.0-18.0); Mean Corp Hgb Conc. 33.8 g/dL (33.0-37.0); Mean Corpuscular Hgb 33.6 pg (27.0-31.0); Mean Corpuscular Volume 99.5 fL (80.0-94.0); Mean Platelet Volume 9.4 fL (7.4-10.4); Platelet Count 181 10^3/uL (130-400); Red Blood Cell Count 2.14 10^6/uL (4.70-6.10); Red Cell Dist. Width 14.9 % (11.5-14.5); White Blood Cell Count 4.3 10^3/uL (4.8-10.8)
[2024-07-12 06:40] LABS: Blood Urea Nitrogen 59 mg/dl (9-20); Calcium 8.5 mg/dl (8.4-10.2); Carbon Dioxide 19 mmol/L (22-30); Chloride 108 mmol/L (98-107); Estimated Creatinine Clearance 15 ml/min; Glucose 187 mg/dl (70-99); Magnesium 1.7 mg/dl (1.6-2.3); Phosphorus 4.2 mg/dl (2.5-4.5); Potassium 4.9 mmol/L (3.5-5.1); Sodium 136 mmol/L (135-145); eGFR 13.57
--- NOTE | 2024-07-12 06:48 | W.PN.HOSP.TC ---
Today's Communication/Plan
-
discharge
Assessment / Plan
Assessment / Plan
Physical Exam
General: no acute distress, appears comfortable at this time
HEENT: NormoCephalic, Anicteric and Moist mucous membranes
Respiratory: Clear
Cardiac: S1/S2 and Regular Rhythm
GI: Soft, Non Tender and Non Distended
Musculoskeletal: No Clubbing, No Cyanosis, No Edema
Skin: Warm
Neuro: AO x 3 conversant coherent
Psych: Calm
# Generalized weakness, likely multifactorial due to hypoglycemia, acute on chronic kidney failure with metabolic acidosis, possible symptomatic anemia
�Tele Admit
�nephrology consult appreciated
�likely dehydrated received 500 mL fluid bolus in ED
- Hold glipizide for now and monitor blood sugars
# Acute renal failure on chronic kidney disease, associated with metabolic acidosis, component of volume depletion
- Nephro consult appreciated patient may require HD this admission, monitoring
- Avoid nephrotoxic agents, monitor intake and output
- CK appreciated elevated but <1000
#Anemia, setting of chronic anemia of CKD, history of GERD and duodenal ulcer, status post 2 units of PRBCs at recent hospitalization, status post EGD/colonoscopy -peptic ulcer disease with duodenal ulcer
-Continue PPI and oral iron daily. Outpatient plan was for video capsule in 1-2 weeks and repeat EGD to assess ulcer healing in 8 weeks.
-monitor H&H
# Type 2 diabetes, on glipizide.
-Ok to resume glipizide on discharge
-Sliding scale
# Essential hypertension on nifedipine and labetalol
- Continue home meds
# Remote History of seizure disorder on Keppra
- No sz activity since 2014
-check keppra level
-Keppra dose reduced to renal dosing 500 mg Q12H
# Alcohol use disorder
- no significant withdrawal noted during stay
-Thiamine, folate, multivitamin
-counseled cessation ETOH use
DVT proph-heparin
Full Code
Medically stable for discharge home with outpatient follow up recommendations.
Total Time Preparing Discharge ___40____ minutes including examination of the patient, summary of the hospital stay, instructions for continuing care to all relevant caregivers; and preparation of discharge records, prescriptions, and referral
forms if necessary.
Anticipated Discharge: Today
Subjective/Interval History
-
Date of Service: July 12, 2024
No acute distress sitting up comfortably in bed. Reports overall feeling well. Ambulating without issues. Denies new acute issues. Eager to go home.
Objective Data
-
Labs:
Laboratory Results
07/12/24
05:12
WBC 4.3 L
Hgb 7.2 L
Hct 21.3 L
Plt Count 181
Sodium 136
Potassium 4.9
Chloride 108 H
Carbon Dioxide 19 L
BUN 59 H
Creatinine 4.5 H*
Glucose 187 H
Calcium 8.5
Vital Signs:
Vital Signs
Temp Pulse Resp BP Pulse Ox
97.8 F 77 18 119/78 99
07/12/24 03:55 07/12/24 03:55 07/12/24 03:55 07/12/24 03:55 07/12/24 03:55
I&O
07/10/24 07/11/24 07/12/24
06:59 06:59 06:59
Intake Total 480 / 480 960 / 960
Output Total 500 / 500 1625 / 1625
Balance -20 / -20 -665 / -665
[2024-07-12 07:47] VITALS: BP 177/96
[2024-07-12 07:49] LABS: Glucose - Point of Care 190 mg/dl (70-99)
[2024-07-12] MEDS: NOVOLOG FLEXPEN-LOW RESISTANCE 1 UNITS SC (08:37)
[2024-07-12] MEDS: PROCARDIA XL (EXTENDED RELEASE) 60 MG PO (08:38)
[2024-07-12] MEDS: PROTONIX 40 MG PO (08:38)
[2024-07-12] MEDS: TRANDATE 100 MG PO (08:38)
[2024-07-12] MEDS: TYLENOL 1000 MG PO (08:38)
[2024-07-12] MEDS: SODIUM BICARBONATE 1300 MG PO (08:38)
[2024-07-12] MEDS: FOLVITE 1 MG PO (08:38)
[2024-07-12] MEDS: KEPPRA 500 MG PO (08:38)
[2024-07-12] MEDS: FEOSOL 325 MG PO (08:39)
[2024-07-12] MEDS: HEPARIN 5000 UNITS SC (08:39)
[2024-07-12] MEDS: THIAMINE INJECTION 200 MG IV (08:40)
[2024-07-12] MEDS: FLUSH (NSS) 2 FLUSH IV (08:41)
--- NOTE | 2024-07-12 10:50 | VATNOTE ---
VAT rounds: + 2 pitting edema noted to R proximal forearm, trace pitting edema noted to R hand. Spoke with primary nurse, swelling is new and unilateral. Peripheral vascular ultrasound recommended. PCN will notify .
[2024-07-12 11:00] VITALS: BP 130/72
[2024-07-12 12:03] LABS: Glucose - Point of Care 275 mg/dl (70-99)
--- NOTE | 2024-07-12 12:12 | W.PN.NEPH.PH ---
Today's Communication / Plan
-
Okay for discharge from a renal standpoint
Assessment/Plan
-
Assessment
SHAYY
CKD4 baseline cr in low 3 range, saw Dr Sher in Feb 2024 and lost f/u
Metabolic acidosis
Hyperkalemia
Hypertension
Anemia of chronic disease with history of GI bleed
Diabetes mellitus type 2
Seizure disorder.
Alcohol abuse
Plan
Mild acute kidney injury with a creatinine of greater than 4 with a GFR less than 15.
Patient has weakness of his lower extremities unlikely secondary to uremia.
Creatinine on discharge 07/02 was 3.7
advanced CKD4 from DM, HTN ,old NSAIDs use
Protein to creatinine ratio 13 g. Likely diabetic etiology
Creatinine continues to increase at 4.6 to despite IV fluids.
Despite diminished GFR renal function stable okay for discharge with follow-up outpatient
-
-
Date of Service: July 12, 2024
CC / HPI / ROS
-
Chief Complaint:
Generalized weakness
History of Present Illness:
Presents with hypoglycemia with blood sugar of 50 and weakness with acute on chronic kidney disease
Review of Systems:.
No chest pain shortness of breath nausea vomiting
Labs
-
Labs:
WBC 4.3 10^3/uL (4.8-10.8) L 07/12/24 05:12
RBC 2.14 10^6/uL (4.70-6.10) L 07/12/24 05:12
Hgb 7.2 g/dL (13.0-18.0) L 07/12/24 05:12
Hct 21.3 % (39.0-52.0) L 07/12/24 05:12
Plt Count 181 10^3/uL (130-400) 07/12/24 05:12
Sodium 136 mmol/L (135-145) 07/12/24 05:12
Potassium 4.9 mmol/L (3.5-5.1) 07/12/24 05:12
Chloride 108 mmol/L (98-107) H 07/12/24 05:12
Carbon Dioxide 19 mmol/L (22-30) L 07/12/24 05:12
BUN 59 mg/dl (9-20) H 07/12/24 05:12
Creatinine 4.5 mg/dL (0.7-1.3) H* 07/12/24 05:12
eGFR 13.57 07/12/24 05:12
Glucose 187 mg/dl (70-99) H 07/12/24 05:12
Calcium 8.5 mg/dl (8.4-10.2) 07/12/24 05:12
Phosphorus 4.2 mg/dl (2.5-4.5) 07/12/24 05:12
Albumin 3.7 g/dl (3.5-5.0) 07/10/24 07:40
Physical Exam
-
Vital Signs:
Vital Signs
Temp Pulse Resp BP Pulse Ox
97.9 F 76 24 130/72 96
07/12/24 11:00 07/12/24 11:00 07/12/24 11:00 07/12/24 11:00 07/12/24 11:00
Cardiovascular:: Regular rate and rhythm
Respiratory:: Bilateral: CTA
Lung Excursion:: Normal
Abdomen:: Nontender and Soft
Extremity Edema:: +1: Bilateral:
Whitehead Catheter: No
[2024-07-12] MEDS: NOVOLOG FLEXPEN-LOW RESISTANCE 3 UNITS SC (12:40)
[2024-07-12 14:14] VITALS: PULSE 86; O2SAT 97
--- NOTE | 2024-07-12 15:44 | W.DCSUMMARY ---
Discharge Summary
Discharge Data
Date of Admission: 07/10/24
Date of Discharge: 07/12/24
-
Pending Results: Yes
Additional Pending Results:
Keppra level
Discharge Plan
-
Patient Disposition: Home (Routine Discharge)
Discharge Diagnosis/Procedures: Generalized weakness, likely multifactorial due to hypoglycemia, acute on chronic kidney failure with metabolic acidosis, possible symptomatic anemia, possible polypharmacy in association with alcohol use
Anemia
Diabetes
Hypertension
Remote History of seizure disorder
Alcohol use disorder
Condition: Fair
Diet: Diabetic, Carb Controlled
Activity: As tolerated
Driving Restrictions: As prior to admission
Bathing Restrictions: None
Blood Work: Repeat CBC and BMP with primary care provider in 1 week of discharge
Activity Restrictions/Additional Instructions:
Follow up with primary care provider in 1 week of discharge. Continue follow up with GI, Hematology, and Nephrology.
Keppra has been reduced to 500 mg twice a day due to your reduced kidney function.
Meloxicam has been discontinued due to progressive kidney disease
Hold on glipizide recommended to reduce risk of hypoglycemia. Follow up with primary care provider and/or other healthcare provider involved in your care to determine when safe to resume, if necessary to resume, and/or if an alternative agent is
required instead.
Continue with your home medication pioglitazone 30 mg daily for diabetes.
Please take medications as prescribed/recommended and follow up with primary care provider and/or other healthcare provider involved in your care for refills and/or further adjustment to your medication regimen.
It is strongly recommended that you abstain from further alcohol use as usage will likely interfere with your other medications and also lead to worsening of your overall condition- increased risk of morbidity/mortality.
Referrals:
UNKNOWN - PT DOES,NOT KNOW [Family Provider] -
Prescriptions:
New
levetiracetam 500 mg Tablet
500 mg PO BID Qty: 60 0RF
Continued
ferrous sulfate 325 mg (65 mg iron) tablet
325 mg PO DAILY Qty: 100 0RF
labetalol 100 mg Tablet
100 mg PO BID Qty: 60 0RF
nifedipine 60 mg Tablet Extended Release
60 mg PO BID Qty: 60 0RF
pantoprazole [Protonix] 40 mg tablet,delayed release (DR/EC)
40 mg PO BID Qty: 60 2RF
folic acid 1 mg Tablet
1 mg PO DAILY Qty: 100 0RF
acetaminophen [Tylenol Extra Strength] 500 mg Tablet
1,000 mg PO BID
sodium bicarbonate 650 mg tablet
1,300 mg PO BID
pioglitazone 30 mg tablet
30 mg PO DAILY
Held
glipizide 2.5 mg tablet
2.5 mg PO DAILY Qty: 30 0RF
Hold Instructions: Follow up with primary care provider and/or other healthcare provider to determine when safe to resume.
Rx Instructions:
new medication in lieu of Metformin
Discontinued
levetiracetam 500 mg tablet
1,500 mg PO BID
meloxicam 15 mg tablet
15 mg PO DAILY
Discharge Orders:
Discharge Patient (As Directed); Ordered 07/12/24
Ordered By: Lisset Verdin
Discharge Date and Time
Print Language: [id number]
[2024-07-13 17:09] LABS: Keppra (Levetiracetam) 76 ug/mL (10-40)
== END 2024-07-12 17:00 | disposition home or self-care (01) | DRG 638 ==
LOC: 4 EAST ACU 14:02
PROVIDERS: Emergency Medicine; ADMITTING PHYSICIAN Internal Medicine; ATTENDING PHYSICIAN Internal Medicine; CONSULT PHYSICIAN Internal Medicine Nephrology; EMERGENCY PHYSICIAN Emergency Medicine
DX: E11.649 Type 2 diabetes mellitus with hypoglycemia without coma (principal); E87.20 Acidosis, unspecified; N17.9 Acute kidney failure, unspecified; N18.4 Chronic kidney disease, stage 4 (severe); I12.9 Hypertensive chronic kidney disease with stage 1 through stage 4 chronic kidney disease, or unspecified chronic kidney disease; E11.22 Type 2 diabetes mellitus with diabetic chronic kidney disease; D63.1 Anemia in chronic kidney disease; E78.5 Hyperlipidemia, unspecified; E87.5 Hyperkalemia; F10.10 Alcohol abuse, uncomplicated; K21.9 Gastro-esophageal reflux disease without esophagitis; G40.909 Epilepsy, unspecified, not intractable, without status epilepticus; K26.9 Duodenal ulcer, unspecified as acute or chronic, without hemorrhage or perforation; Z79.84 Long term (current) use of oral hypoglycemic drugs; Z79.899 Other long term (current) drug therapy
CPT/HCPCS: 80048; 80053; 80177; 81003; 81015; 82550; 82607; 82728; 82746; 82962; 83540; 83550; 83735; 84100; 85014; 85018; 85025; 85027; 86850; 86900; 86901; 93005; 93971; 96360; 96361; 97116; 97161; 97166; 99285